=== PATIENT | male | born 1930 | race Caucasian/White ===

== ENCOUNTER 2016-06-12 19:49 | Inpatient (IN) | payer BC, OTHER ==
[~2016-06-12] VITALS: Ht 177.8 cm; Wt 87.0 kg
[~2016-06-12 19:49] MED LIST changes: -CARB25TA12 PO; -HYDR-5688 PO; -LCTX PO; -LPR25 PO; -RIVA1TAB4 PO
[2016-06-12] MEDS ORDERED: SODIUM CHLORIDE 0.9% 1000ML 1,000 ML IV ONE (20:12)
[2016-06-12] MEDS ORDERED: PIPERACILLIN/TAZOBACTAM 4.5 GM/100ML D5W IV STA (20:18)
[2016-06-12] MEDS ORDERED: ONDANSETRON INJ 2 MG/ML 2 ML VIAL IV STA (20:18)
[2016-06-12] MEDS ORDERED: PANTOprazole INJ 40 MG in SYRINGE 0 ML IV ONE (20:30)
--- NOTE | 2016-06-12 20:31 | EMERGENCY ROOM VISIT NOTE ---
History Report prepared by Alfred: Skinny Guallpa Under the Supervision of: Dr. Dominick Lynn D.O. First contact with patient: 20:11 Chief Complaint: WEAKNESS Stated Complaint: VERY WEAK,NEED FLUIDS Nursing Triage Summary: states he saw dr. samantha plasencia's pa today because of weakness due to vomiting. vomiting since son. was given rx for antivomiting, scan of stomach and blood work. "I need fluid, I am so dehydrated" History of Present Illness The patient is a 86 year old male who presents to the Emergency Room with complaints of persistent weakness beginning earlier today. He was seen by Dr. Plasencia's PA this morning for 2 days of vomiting. He had blood work and a CT at the office. The patient complains of feeling weak, and describes his emesis as dark brown. He denies having any fevers, colds, or chest pain. He states he still has his gallbladder, and indicates he was noted to have gallstones in the past. The patient reports having a heart murmur, and sinus problems for which he takes medication. 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 Source of History: patient Onset: earlier today Position: other (global) Quality: other (weakness) Timing: other (persistent) Associated Symptoms: + vomiting, No chest pain, No fevers Review of Systems See HPI for pertinent positives & negatives. A total of 10 systems reviewed and were otherwise negative. Past Medical & Surgical Medical Problems: (1) HYPERLIPIDEMIA NEC/NOS (2) HYPERTENSION NOS (3) HYPERTROPHY OF PROSTATE (BENIGN) (4) SBO (small bowel obstruction) Family History No pertinent family history stated. Social History Smoking Status: Former Smoker Drug Use: none Marital Status: Occupation Status: retired Current/Historical Medications Scheduled Aspirin (Aspirin Ec), 81 MG PO Q2D Atorvastatin (Lipitor), 10 MG PO HS Carbidopa/Levodopa (Sinemet 25MG/100MG), 1 TAB PO TID Cholecalciferol (Vitamin D3), 2,000 INTUNIT PO QAM Cyanocobalamin (Vitamin B-12 1000 Mcg), 1,000 MCG PO QAM Ipratropium [place] (Nasal) (Atrovent), 2 SPRAYS SOSA QAM Mupirocin 2% (Bactroban 2%), 1 APPLN EXT QAM Pramipexole Dihydrochloride (Pramipexole Dihydrochlori), 0.25 MG PO HS Valsartan (Diovan), 40 MG PO QAM Scheduled PRN [Gentamycin Sulfate], 3 OZ NA DAILY PRN for PRN Allergies Coded Allergies: No Known Allergies (Verified , 06/12/16) Physical Exam Vital Signs Date Time Temp Pulse Resp B/P Pulse Ox O2 Delivery O2 Flow Rate FiO2 06/12/16 23:16 72 18 117/76 98 06/12/16 23:02 101 18 117/76 93 Room Air 06/12/16 21:26 95 Room Air 06/12/16 21:01 107 06/12/16 21:00 129/70 06/12/16 21:00 129/70 06/12/16 20:58 134/88 06/12/16 20:58 134/88 06/12/16 20:01 36.4 121 16 89/57 94 Room Air Physical Exam GENERAL: Patient is awake alert, very anxious and uncomfortable appearing. EYES: The conjunctivae are clear. The pupils are round and reactive. EARS, NOSE, MOUTH AND THROAT: The nose is without any evidence of any deformity. Mucous membranes are dry, tongue is midline NECK: The neck is nontender and supple. RESPIRATORY: Normal respiratory effort is noted there is no evidence of wheezing rhonchi or rales CARDIOVASCULAR: Tachycardic rate to auscultation. Systolic murmur noted to auscultation. GASTROINTESTINAL: Moderately distended but soft. Right upper quadrant is tender to palpation without any guarding or rigidity. MUSCULOSKELETAL/EXTREMITIES: There is no evidence of gross deformity full range of motion is noted in the hips and shoulders SKIN: Trace pedal edema bilaterally. NEUROLOGIC: Patient is awake alert and oriented x3. Medical Decision & Procedures ER Provider Diagnostic Interpretation: Radiology results as stated below per my review and radiologist interpretation: CHEST ONE VIEW PORTABLE FINDINGS: Mild bibasilar atelectatic/infiltrative change. Lungs otherwise are clear. No evidence for cardiac enlargement. IMPRESSION: Small bibasilar parenchymal infiltrates/atelectatic change Electronically signed by: Jonas Yost M.D. 06/12/2016 8:39 PM Dictated Date/Time: 06/12/2016 8:38 PM ABDOMEN AND PELVIS CT WITHOUT CONTRAST FINDINGS: Mild bibasilar infiltrative change Liver appears uniform. Gallstones are present within the gallbladder. Pancreas is fatty replaced and otherwise appears unremarkable. Stomach is distended. This distention includes the proximal to distal small bowel. There is a consistent with that of distal small bowel obstruction. Etiology is unknown. Colon is decompressed. Appears be a changing caliber within the right lower quadrant although a true obstructing lesion is not easily appreciated. No evidence for pneumatosis. Atherosclerotic change and ectasia of the abdominal aorta. Bladder is midline. Mild chronic sigmoid diverticulosis. No evidence for acute diverticulitis. IMPRESSION: 1. Findings consistent with distal small bowel obstruction somewhat proximal to the terminal ileum. 2. Etiology is unclear although well-defined mass is not seen. 3. Bibasilar parenchymal infiltrative changes. 4. Gallstones. Electronically signed by: Jonas Yost M.D. 06/12/2016 9:50 PM Dictated Date/Time: 06/12/2016 9:40 PM Laboratory Results 06/12/16 21:19 Red Blood Count 4.86, Mean Corpuscular Volume 87.7, Mean Corpuscular Hemoglobin 30.5, Mean Corpuscular Hemoglobin Concent 34.7, Mean Platelet Volume 9.6, Neutrophils (%) (Auto) 73.5, Lymphocytes (%) (Auto) 8.9, Monocytes (%) (Auto) 17.0, Eosinophils (%) (Auto) 0.3, Basophils (%) (Auto) 0.1, Neutrophils # (Auto ) 8.77, Lymphocytes # (Auto) 1.06, Monocytes # (Auto) 2.02, Eosinophils # (Auto ) 0.03, Basophils # (Auto) 0.01 06/12/16 21:19 Test 06/12/16 20:30 06/12/16 21:19 Bedside Lactic Acid Venous 2.45 mmol/L (0.90-1.70) White Blood Count 11.91 K/uL (4.8-10.8) Red Blood Count 4.86 M/uL (4.7-6.1) Hemoglobin 14.8 g/dL (14.0-18.0) Hematocrit 42.6 % (42-52) Mean Corpuscular Volume 87.7 fL (80-100) Mean Corpuscular Hemoglobin 30.5 pg (25-34) Mean Corpuscular Hemoglobin Concent 34.7 g/dl (32-36) Platelet Count 255 K/uL (130-400) Mean Platelet Volume 9.6 fL (7.4-10.4) Neutrophils (%) (Auto) 73.5 % Lymphocytes (%) (Auto) 8.9 % Monocytes (%) (Auto) 17.0 % Eosinophils (%) (Auto) 0.3 % Basophils (%) (Auto) 0.1 % Neutrophils # (Auto) 8.77 K/uL (1.4-6.5) Lymphocytes # (Auto) 1.06 K/uL (1.2-3.4) Monocytes # (Auto) 2.02 K/uL (0.11-0.59) Eosinophils # (Auto) 0.03 K/uL (0-0.5) Basophils # (Auto) 0.01 K/uL (0-0.2) RDW Standard Deviation 48.6 fL (36.4-46.3) RDW Coefficient of Variation 15.1 % (11.5-14.5) Immature Granulocyte % (Auto) 0.2 % Immature Granulocyte # (Auto) 0.02 K/uL (0.00-0.02) Erythrocyte Sedimentation Rate 35 mm/hr (0-14) Prothrombin Time 13.2 SECONDS (9.0-12.0) Prothromb Time International Ratio 1.2 (0.9-1.1) Activated Partial Thromboplast Time 27.4 SECONDS (21.0-31.0) Partial Thromboplastin Ratio 1.1 Venous Blood pH 7.39 (7.36-7.41) Venous Blood Partial Pressure CO2 49 mmHg (38.0-50.0) Venous Blood Partial Pressure O2 23 mmHg Venous Blood HCO3 29 mmol/L Venous Blood Oxygen Saturation < 60.0 % Venous Blood Base Excess 3.1 mmol/L Anion Gap 11.0 mmol/L (3-11) Est Creatinine Clear Calc Drug Dose 20.5 ml/min Estimated GFR () 21.7 Estimated GFR (Non- 18.7 BUN/Creatinine Ratio 18.9 (10-20) Calcium Level 8.4 mg/dl (8.5-10.1) Phosphorus Level 5.9 mg/dl (2.5-4.9) Magnesium Level 2.3 mg/dl (1.8-2.4) Total Bilirubin 1.2 mg/dl (0.2-1) Aspartate Amino Transf (AST/SGOT) 18 U/L (15-37) Alanine Aminotransferase (ALT/SGPT) 22 U/L (12-78) Alkaline Phosphatase 77 U/L (45-117) Total Creatine Kinase 246 U/L (39-308) Creatine Kinase MB 3.0 ng/ml (0.5-3.6) Creatine Kinase MB Ratio 1.2 (0-3.0) Troponin I 0.060 ng/ml (0-0.045) C-Reactive Protein 5.67 mg/dl (0-0.29) Pro-B-Type Natriuretic Peptide 3927 pg/ml (0-1800) Total Protein 7.0 gm/dl (6.4-8.2) Albumin 3.6 gm/dl (3.4-5.0) Globulin 3.4 gm/dl (2.5-4.0) Albumin/Globulin Ratio 1.1 (0.9-2) Lipase 44 U/L (73-393) Laboratory results per my review. Medications Administered Medications (Trade) Dose Ordered Sig/Griffin Route Start Time Stop Time Status Last Admin Dose Admin Sodium Chloride 1,000 ml @ 999 mls/hr Q1H1M ONCE IV 06/12/16 20:12 06/12/16 21:12 DC 06/12/16 20:30 999 MLS/HR Pantoprazole Sodium/Syringe (Protonix Inj/ Syringe) 10 ml @ 5 mls/min NOW ONCE IV 06/12/16 20:30 06/12/16 20:31 DC 06/12/16 21:01 5 MLS/MIN Ondansetron HCl (Zofran Inj) 4 mg NOW STAT IV 06/12/16 20:18 06/12/16 20:20 DC 06/12/16 20:29 4 MG Piperacillin Sod/ Tazobactam Sod 4.5 gm 4.5 gm NOW STAT IV 06/12/16 20:18 06/12/16 20:20 DC 06/12/16 20:30 4.5 GM Sodium Chloride (Nss 1000ml) 1,000 ml @ 999 mls/hr Q1H1M STAT IV 06/12/16 21:42 06/12/16 22:42 DC 4/4/17 21:51 999 MLS/HR ECG Indication: weakness Rate (beats per minute): 110 Rhythm: sinus tachycardia Findings: no ectopy, other (diffuse ST segment abnormality) ED Course 2011: Ordered NSS 1,000 ml @ 999 mls/hr IV. 2015: The patient was evaluated in room B6. A complete history and physical examination were performed. 2018: Ordered Zosyn Iv 4.5 gm IV, and Zofran Inj 4 mg IV. 2029: Pantoprazole Sodium 40 mg/Syringe 10 ml @ 5 mls/min IV. 2141: Ordered NSS 1,000 ml @ 999 mls/hr IV. 2209: I discussed the patient's case with Dr. Pabon. The patient will be evaluated for further management. Medical Decision Differential diagnosis: Etiologies such as gastroenteritis, food borne illness, infections, appendicitis , diverticulitis, inflammatory bowel disease, obstruction, GI bleed, biliary pathology, as well as others were entertained. Consults Time Called: 2199 Consulting Physician: [place] [facility] [facility] [place]ed Call: [phone] I discussed the patient's case with Dr. Pabon. The patient will be evaluated for further management. Impression Primary Impression: SBO (small bowel obstruction) Additional Impressions: Nausea Vomiting Dehydration Acute kidney injury Scribe Attestation The scribe's documentation has been prepared under my direction and personally reviewed by me in its entirety. I confirm that the note above accurately reflects all work, treatment, procedures, and medical decision making performed by me. Departure Information Dispostion Being Evaluated By Hospitalist Referrals Dino Plasencia M.D. (PCP) Patient Instructions My [facility] Problem Qualifiers
--- NOTE | 2016-06-12 20:41 | DIAGNOSTIC IMAGING REPORT ---
CHEST ONE VIEW PORTABLE CLINICAL HISTORY: Sepsis dyspnea COMPARISON STUDY: 06/01/2014 FINDINGS: Mild bibasilar atelectatic/infiltrative change. Lungs otherwise are clear. No evidence for cardiac enlargement. IMPRESSION: Small bibasilar parenchymal infiltrates/atelectatic change Electronically signed by: Jonas Yost M.D. 06/12/2016 8:39 PM Dictated Date/Time: 06/12/2016 8:38 PM
[2016-06-12] MEDS ORDERED: CARB25TA12 PO (21:08)
[2016-06-12 21:35] LABS: BASO % 0.1 %; BASO ABS # 0.01 K/uL (0-0.2); COMPLETE YES; EOS % 0.3 %; HEMATOCRIT 42.6 % (42-52); IG% 0.2 %; LYMPH % 8.9 %; LYMPH ABS # 1.06 K/uL (1.2-3.4); MEAN CELL VOLUME 87.7 fL (80-100); MEAN CORPUSCULAR HEMOGLOBIN 30.5 pg (25-34); MEAN CORPUSCULAR HGB CONC 34.7 g/dl (32-36); MEAN PLATELET VOLUME 9.6 fL (7.4-10.4); NEUT % 73.5 %; PLATELET COUNT 255 K/uL (130-400); RED BLOOD COUNT 4.86 M/uL (4.7-6.1); WHITE BLOOD COUNT 11.91 K/uL (4.8-10.8)
[2016-06-12 21:36] LABS: VEN BLOOD GAS BASE EXCESS 3.1 mmol/L; VENOUS BLOOD GAS PCO2 49 mmHg (38.0-50.0); VENOUS BLOOD GAS PO2 23 mmHg
[2016-06-12] MEDS ORDERED: SODIUM CHLORIDE 0.9% 1000ML 1,000 ML IV STA (21:42)
[2016-06-12 21:44] LABS: VEN BLD GAS O2 SATURATION < 60.0 %
[2016-06-12 21:45] LABS: INR 1.2 (0.9-1.1); PARTIAL THROMBOPLASTIN RATIO 1.1; PROTHROMBIN TIME (PATIENT) 13.2 SECONDS (9.0-12.0)
--- NOTE | 2016-06-12 21:51 | DIAGNOSTIC IMAGING REPORT ---
ABDOMEN AND PELVIS CT WITHOUT CONTRAST CT DOSE: 732.98 mGy.cm HISTORY: Nausea. Vomiting. vomiting TECHNIQUE: Multiaxial CT images of the abdomen and pelvis were performed without contrast. COMPARISON STUDY: None. FINDINGS: Mild bibasilar infiltrative change Liver appears uniform. Gallstones are present within the gallbladder. Pancreas is fatty replaced and otherwise appears unremarkable. Stomach is distended. This distention includes the proximal to distal small bowel. There is a consistent with that of distal small bowel obstruction. Etiology is unknown. Colon is decompressed. Appears be a changing caliber within the right lower quadrant although a true obstructing lesion is not easily appreciated. No evidence for pneumatosis. Atherosclerotic change and ectasia of the abdominal aorta. Bladder is midline. Mild chronic sigmoid diverticulosis. No evidence for acute diverticulitis. IMPRESSION: 1. Findings consistent with distal small bowel obstruction somewhat proximal to the terminal ileum. 2. Etiology is unclear although well-defined mass is not seen. 3. Bibasilar parenchymal infiltrative changes. 4. Gallstones. Electronically signed by: Jonas Yost M.D. 06/12/2016 9:50 PM Dictated Date/Time: 06/12/2016 9:40 PM
[2016-06-12 21:59] LABS: BUN/CREATININE RATIO 18.9 (10-20); C-REACTIVE PROTEIN 5.67 mg/dl (0-0.29); CALCIUM 8.4 mg/dl (8.5-10.1); CREATININE 2.9 mg/dl (0.60-1.40); MAGNESIUM 2.3 mg/dl (1.8-2.4); POTASSIUM 4.2 mmol/L (3.5-5.1)
[2016-06-12 22:23] LABS: ALB/GLOB RATIO 1.1 (0.9-2); CKMB/CK RATIO 1.2 (0-3.0); PHOSPHORUS 5.9 mg/dl (2.5-4.9)
[2016-06-12] MEDS ORDERED: VANCOMYCIN INJ 1,000 MG in SODIUM CHLORIDE 0.9% 250ML 250 ML IV STA (22:25)
[2016-06-12] MEDS ORDERED: HydrALAZINE HCL 20 MG/ML VIAL IV. PRN (22:30)
[2016-06-12] MEDS ORDERED: MoRPHine SULFATE 2 MG/ML CARP IV PRN (22:30)
[2016-06-12] MEDS ORDERED: MoRPHine SULFATE 4 MG/ML 1 ML CARP\\VIAL IV PRN (22:30)
[2016-06-12] MEDS ORDERED: LEVALBUTEROL 1.25MG/0.5ML NEB INH PRN (23:00)
[2016-06-12] MEDS ORDERED: IPRATROPIUM BROMIDE NEB SOLN 0.02% 2.5 ML VIAL INH PRN (23:00)
[2016-06-12] MEDS ORDERED: VANCOMYCIN 1GM/270ML NSS ONE (23:30)
[2016-06-12] MEDS ORDERED: VANCOMYCIN CONSULT ACTIVE PRN (23:45)
[2016-06-12] MEDS ORDERED: PIPERACILL/TAZOBAC CONSULT ACTIVE PRN (23:45)
[2016-06-12 23:57] VITALS: BP 104/63; PULSE 109; TEMP 36.7; O2SAT 90
[2016-06-13] VITALS (13 sets, daily range): BP systolic 84–109; BP diastolic 52–66; PULSE 90–118; TEMP 36.5–37.7; O2SAT 81–95; Ht 177.8 cm; Wt 87.0 kg
[2016-06-13] MEDS: SODIUM CHLORIDE 0.9% 1000ML 1,000 ML IV SCH ×4 (00:28→22:39)
[2016-06-13] MEDS: ONDANSETRON INJ 2 MG/ML 2 ML VIAL IV PRN ×2 (01:16→01:59)
[2016-06-13] MEDS: PIPERACILL/TAZOBAC IV 3.375 GM in DEXTROSE 5% 100ML 100 ML IV SCH ×3 (01:57→18:39)
[2016-06-13] MEDS: LEVALBUTEROL 1.25MG/0.5ML NEB INH SCH ×4 (03:00→20:18)
[2016-06-13] MEDS: IPRATROPIUM BROMIDE NEB SOLN 0.02% 2.5 ML VIAL INH SCH ×4 (03:00→20:18)
[2016-06-13] MEDS ORDERED: LEVALBUTEROL/IPRATROPIUM NEB INH SCH (03:00)
--- NOTE | 2016-06-13 05:06 | History and Physical ---
History & Physical Date & Time of Service: Jun 13, 2016 at 04:54 Chief Complaint: SBO Primary Care Physician: Dino Lion M.D. History of Present Illness Source: patient The patient is an 86-year-old male who presents to the emergency department with persistent generalized weakness that began earlier in the day prior to arrival. He's had 2 days of dark brown emesis, feels generally weak, and has been noted to have gallstones in the past and does still have his gallbladder. He denies any bright red blood in his emesis or in stool. Past Medical/Surgical History Medical Problems: (1) HYPERLIPIDEMIA NEC/NOS Status: Chronic (2) HYPERTENSION NOS Status: Chronic (3) HYPERTROPHY OF PROSTATE (BENIGN) Status: Chronic Social History Smoking Status: Former Smoker Smokeless Tobacco Use: No Alcohol Use: none Drug Use: none Marital Status: Housing status: lives with family Occupational Status: retired Multi-Drug Resistant Organisms History of MDRO: No Allergies Coded Allergies: No Known Allergies (Verified , 06/12/16) Home Medications Scheduled Aspirin (Aspirin Ec), 81 MG PO Q2D Atorvastatin (Lipitor), 10 MG PO HS Carbidopa/Levodopa (Sinemet 25MG/100MG), 1 TAB PO TID Cholecalciferol (Vitamin D3), 2,000 INTUNIT PO QAM Cyanocobalamin (Vitamin B-12 1000 Mcg), 1,000 MCG PO QAM Ipratropium [place] (Nasal) (Atrovent), 2 SPRAYS SOSA QAM Mupirocin 2% (Bactroban 2%), 1 APPLN EXT QAM Pramipexole Dihydrochloride (Pramipexole Dihydrochlori), 0.25 MG PO HS Valsartan (Diovan), 40 MG PO QAM Scheduled PRN [Gentamycin Sulfate], 3 OZ NA DAILY PRN for PRN Review of Systems The patient denies chest pain, palpitations, shortness of breath, cough, lower extremity swelling, vision change, hearing change, sore throat, fevers, chills, sweats, weight change, pelvic pain, blood in urine or stool, dysuria, urinary frequency or urgency, lightheadedness, dizziness, headache, memory loss, rash, abnormal bruising or bleeding, imbalance, focal weakness, numbness or tingling in arms or legs, arthralgias or myalgias, back or neck pain, night sweats, or allergy symptoms. The review of systems is otherwise negative other than for that already noted above, and at least 10 systems have been reviewed. Physical Exam Vital Signs Date Time Temp Pulse Resp B/P Pulse Ox O2 Delivery O2 Flow Rate FiO2 06/13/16 00:00 36.7 109 20 104/63 90 Room Air 06/13/16 00:00 Room Air 06/12/16 23:57 36.7 109 20 104/63 90 Room Air 06/12/16 23:16 72 18 117/76 98 06/12/16 23:02 101 18 117/76 93 Room Air 06/12/16 21:26 95 Room Air 06/12/16 21:01 107 06/12/16 21:00 129/70 06/12/16 21:00 129/70 06/12/16 20:58 134/88 06/12/16 20:58 134/88 06/12/16 20:01 36.4 121 16 89/57 94 Room Air The patient is awake, well-developed and adequately nourished, alert and oriented 3, normocephalic and atraumatic, lying in bed and in no acute distress. HEENT--PERRL, EOMI, mucous membranes and oropharynx dry. Neck--supple, no JVD or bruits, thyroid normal, trachea midline, no adenopathy. Heart--normal S1 and S2, no extra beats, no murmurs, rubs or gallops. Lungs--clear bilaterally with good air movement, no respiratory distress, no accessory muscle use. Abdomen--decreased bowel sounds and soft, generalized mild tenderness, and nondistended. Extremities--no cyanosis, clubbing or edema. There are good distal pulses b/l. Dermatologic--normal skin turgor, normal color, warm and dry, no abnormal lymph nodes, no rash. Neurologic--cranial nerves II through XII grossly intact, motor and sensory examination normal. Rheumatologic--normal range of motion, nontender, muscles and joints. Psychiatric--normal affect. Diagnostics Laboratory Results Results Past 24 Hours Test 06/12/16 20:30 06/12/16 21:19 06/13/16 04:44 Range/Units Bedside Lactic Acid Venous 2.45 0.90-1.70 mmol/L White Blood Count 11.91 4.8-10.8 K/uL Red Blood Count 4.86 4.7-6.1 M/uL Hemoglobin 14.8 14.0-18.0 g/dL Hematocrit 42.6 42-52 % Mean Corpuscular Volume 87.7 80-100 fL Mean Corpuscular Hemoglobin 30.5 25-34 pg Mean Corpuscular Hemoglobin Concent 34.7 32-36 g/dl Platelet Count 255 130-400 K/uL Mean Platelet Volume 9.6 7.4-10.4 fL Neutrophils (%) (Auto) 73.5 % Lymphocytes (%) (Auto) 8.9 % Monocytes (%) (Auto) 17.0 % Eosinophils (%) (Auto) 0.3 % Basophils (%) (Auto) 0.1 % Neutrophils # (Auto) 8.77 1.4-6.5 K/uL Lymphocytes # (Auto) 1.06 1.2-3.4 K/uL Monocytes # (Auto) 2.02 0.11-0.59 K/uL Eosinophils # (Auto) 0.03 0-0.5 K/uL Basophils # (Auto) 0.01 0-0.2 K/uL RDW Standard Deviation 48.6 36.4-46.3 fL RDW Coefficient of Variation 15.1 11.5-14.5 % Immature Granulocyte % (Auto) 0.2 % Immature Granulocyte # (Auto) 0.02 0.00-0.02 K/uL Erythrocyte Sedimentation Rate 35 0-14 mm/hr Prothrombin Time 13.2 9.0-12.0 SECONDS Prothromb Time International Ratio 1.2 0.9-1.1 Activated Partial Thromboplast Time 27.4 21.0-31.0 SECONDS Partial Thromboplastin Ratio 1.1 Venous Blood pH 7.39 7.36-7.41 Venous Blood Partial Pressure CO2 49 38.0-50.0 mmHg Venous Blood Partial Pressure O2 23 mmHg Venous Blood HCO3 29 mmol/L Venous Blood Oxygen Saturation < 60.0 % Venous Blood Base Excess 3.1 mmol/L Sodium Level 135 136-145 mmol/L Potassium Level 4.2 3.5-5.1 mmol/L Chloride Level 95 98-107 mmol/L Carbon Dioxide Level 29 21-32 mmol/L Anion Gap 11.0 3-11 mmol/L Blood Urea Nitrogen 55 7-18 mg/dl Creatinine 2.90 0.60-1.40 mg/dl Est Creatinine Clear Calc Drug Dose 20.5 ml/min Estimated GFR () 21.7 Estimated GFR (Non- 18.7 BUN/Creatinine Ratio 18.9 10-20 Random Glucose 139 70-99 mg/dl Calcium Level 8.4 8.5-10.1 mg/dl Phosphorus Level 5.9 2.5-4.9 mg/dl Magnesium Level 2.3 1.8-2.4 mg/dl Total Bilirubin 1.2 0.2-1 mg/dl Aspartate Amino Transf (AST/SGOT) 18 15-37 U/L Alanine Aminotransferase (ALT/SGPT) 22 12-78 U/L Alkaline Phosphatase 77 45-117 U/L Total Creatine Kinase 246 39-308 U/L Creatine Kinase MB 3.0 0.5-3.6 ng/ml Creatine Kinase MB Ratio 1.2 0-3.0 Troponin I 0.060 0-0.045 ng/ml C-Reactive Protein 5.67 0-0.29 mg/dl Pro-B-Type Natriuretic Peptide 3927 0-1800 pg/ml Total Protein 7.0 6.4-8.2 gm/dl Albumin 3.6 3.4-5.0 gm/dl Globulin 3.4 2.5-4.0 gm/dl Albumin/Globulin Ratio 1.1 0.9-2 Lipase 44 73-393 U/L Microbiology Results 06/12/16 Blood Culture, Received Pending 06/12/16 Blood Culture, Received Pending Diagnostic Radiology Patient Name: LENY RODRIGUEZ Unit Number: [id number] Dictated: 06/12/162037 Transcribed: 06/12/162037 MS Printed Date/Time: [~ rep prt dt]/[~ rep prt tm] [~ rep ct labl] - [~ rep ct ivnm] [facility] [place] [place] [address] Dictated: 06/12/162037 Transcribed: 06/12/162037 MS Printed Date/Time: [~ rep prt dt]/[~ rep prt tm] [~ rep ct labl] - [~ rep ct ivnm] CHEST ONE VIEW PORTABLE CLINICAL HISTORY: Sepsis dyspnea COMPARISON STUDY: 06/01/2014 FINDINGS: Mild bibasilar atelectatic/infiltrative change. Lungs otherwise are clear. No evidence for cardiac enlargement. IMPRESSION: Small bibasilar parenchymal infiltrates/atelectatic change Electronically signed by: Jonas Yost M.D. 06/12/2016 8:39 PM Dictated Date/Time: 06/12/2016 8:38 PM The status of this report is Signed. Draft = Not yet reviewed or approved by Radiologist. Signed = Reviewed and approved by Radiologist. <AttendingPhy></AttendingPhy> <FamilyPhy>Dino Lion M.D.</FamilyPhy> < PrimaryPhy>Dino Lion M.D.</PrimaryPhy> <UnitNumber>[id number]</UnitNumber > <VisitNumber>[id number]</VisitNumber> <PatientName>LENY RODRIGUEZ</ PatientName> <DateOfBirth>1930</DateOfBirth> <Location>C.EDB</Location> < ServiceDate>06/12/16</ServiceDate> <MNE>ESINDI</MNE> <OrderingPhy>Dominick Lynn D.O.</OrderingPhy> <OrderingPhyMNE>f rep ord dr vásquez</OrderingPhyMNE> <DictatingPhyMNE>f rep dict dr vásquez</DictatingPhyMNE> <CCListMNE>f rep ct mne</ CCListMNE> <AdmittingPhyMNE>f pt admit dr vásquez</AdmittingPhyMNE> <AttendingPhyMNE >f pt attend dr vásquez</AttendingPhyMNE> <ConsultingPhyMNE>f pt consult dr vásquez</ConsultingPhyMNE> <FamilyPhyMNE>f pt fam dr vásquez</FamilyPhyMNE> <OtherPhyMNE>f pt other dr vásquez</OtherPhyMNE> < PrimaryPhyMNE>f pt prim care dr vásquez</PrimaryPhyMNE> <ReferringPhyMNE>f pt referring dr vásquez</ReferringPhyMNE> Patient Name: LENY RODRIGUEZ Unit Number: [id number] Dictated: 06/12/162139 Transcribed: 06/12/162139 MS Printed Date/Time: [~ rep prt dt]/[~ rep prt tm] [~ rep ct labl] - [~ rep ct ivnm] [facility] [place] [place] [address] Dictated: 06/12/162139 Transcribed: 06/12/162139 MS Printed Date/Time: [~ rep prt dt]/[~ rep prt tm] [~ rep ct labl] - [~ rep ct ivnm] ABDOMEN AND PELVIS CT WITHOUT CONTRAST CT DOSE: 732.98 mGy.cm HISTORY: Nausea. Vomiting. vomiting TECHNIQUE: Multiaxial CT images of the abdomen and pelvis were performed without contrast. COMPARISON STUDY: None. FINDINGS: Mild bibasilar infiltrative change Liver appears uniform. Gallstones are present within the gallbladder. Pancreas is fatty replaced and otherwise appears unremarkable. Stomach is distended. This distention includes the proximal to distal small bowel. There is a consistent with that of distal small bowel obstruction. Etiology is unknown. Colon is decompressed. Appears be a changing caliber within the right lower quadrant although a true obstructing lesion is not easily appreciated. No evidence for pneumatosis. Atherosclerotic change and ectasia of the abdominal aorta. Bladder is midline. Mild chronic sigmoid diverticulosis. No evidence for acute diverticulitis. IMPRESSION: 1. Findings consistent with distal small bowel obstruction somewhat proximal to the terminal ileum. 2. Etiology is unclear although well-defined mass is not seen. 3. Bibasilar parenchymal infiltrative changes. 4. Gallstones. Electronically signed by: Jonas Yost M.D. 06/12/2016 9:50 PM Dictated Date/Time: 06/12/2016 9:40 PM The status of this report is Signed. Draft = Not yet reviewed or approved by Radiologist. Signed = Reviewed and approved by Radiologist. <AttendingPhy></AttendingPhy> <FamilyPhy>Dino Lion M.D.</FamilyPhy> < PrimaryPhy>Dino Lion M.D.</PrimaryPhy> <UnitNumber>[id number]</UnitNumber > <VisitNumber>[id number]</VisitNumber> <PatientName>LENY RODRIGUEZ</ PatientName> <DateOfBirth>1930</DateOfBirth> <Location>C.EDB</Location> < ServiceDate>06/12/16</ServiceDate> <MNE>ESINDI</MNE> <OrderingPhy>Dominick Lynn D.O.</OrderingPhy> <OrderingPhyMNE>f rep ord dr vásquez</OrderingPhyMNE> <DictatingPhyMNE>f rep dict dr vásquez</DictatingPhyMNE> <CCListMNE>f rep ct thalia</ CCListMNE> <AdmittingPhyMNE>f pt admit dr vásquez</AdmittingPhyMNE> <AttendingPhyMNE >f pt attend dr vásquez</AttendingPhyMNE> <ConsultingPhyMNE>f pt consult dr vásquez</ConsultingPhyMNE> <FamilyPhyMNE>f pt fam dr vásquez</FamilyPhyMNE> <OtherPhyMNE>f pt other dr vásquze</OtherPhyMNE> < PrimaryPhyMNE>f pt prim care dr vásquez</PrimaryPhyMNE> <ReferringPhyMNE>f pt referring dr vásquez</ReferringPhyMNE> Impression Assessment and Plan Distal small bowel obstruction--the patient will be admitted to the medical surgical floor. He'll be nothing by mouth. Place on normal saline at 100 ML's per hour. Vancomycin IV per renal dosing, Zosyn 3.375 mg IV every 8 hours, Zofran 4 mg IV every 6 hours when necessary, and Protonix 40 mg IV daily. We' ll follow serial examination, imaging studies and labs. The patient was initially reluctant to have an NG tube placed, however, with persistent nausea and vomiting upon arrival to the medical floor, an NG tube to low intermittent suction was placed. Pneumonia of both lower lobes--possibly secondary to aspiration--antibiotics as noted above, and Xopenex with Atrovent nebulizer use every 6 hours awake and every 2 hours when necessary. Hypertension/Renal insufficiency--creatinine of 2.90 on entry labs. We placed on normal saline as noted above, and we'll have serial BMP and magnesium levels performed. Hold Diovan 40 mg by mouth every morning and enteric-coated aspirin 81 mg by mouth every 2 days. Hypercholesterolemia--hold atorvastatin 10 mg by mouth at bedtime. Restless leg syndrome--hold pramipexole 0.25 mg by mouth at bedtime. Parkinsonism--hold carbidopa/levodopa 25/100, 1 tablet by mouth 3 times a day. Vitamin B12 deficiency--hold supplement 1000 g by mouth every morning. Level of Care Med/Surg Advanced Directives Existing Advance Directive: No Existing Living Will: Yes Existing Power of Agricultural Produce Washer: Yes Resuscitation Status FULL RESUSCITATION VTE Prophylaxis VTE Risk Assessment Done? Y/N: Yes Risk Level: Moderate Given or contraindicated: SCD's
[2016-06-13] MEDS ORDERED: SODIUM CHLORIDE 0.9% 500ML 500 ML IV SCH ×2 (08:00→23:00)
[2016-06-13 08:08] LABS: HEMATOCRIT 38.9 % (42-52); MEAN CELL VOLUME 86.6 fL (80-100); MEAN CORPUSCULAR HEMOGLOBIN 30.7 pg (25-34); MEAN CORPUSCULAR HGB CONC 35.5 g/dl (32-36); MEAN PLATELET VOLUME 9.5 fL (7.4-10.4); PLATELET COUNT 206 K/uL (130-400); RED BLOOD COUNT 4.49 M/uL (4.7-6.1); WHITE BLOOD COUNT 9.33 K/uL (4.8-10.8)
[2016-06-13 08:26] LABS: COMPLETE YES; LYMPH ABS # 0.65 K/uL (1.2-3.4); NEUTROPHILS % 88.7 %
[2016-06-13 08:56] LABS: BUN/CREATININE RATIO 18.3 (10-20); CREATININE 3.3 mg/dl (0.60-1.40); POTASSIUM 3.4 mmol/L (3.5-5.1)
--- NOTE | 2016-06-13 09:57 | Progress Note ---
Subjective Date of Service: Jun 13, 2016. Subjective Pt evaluation today including: conversation w/ patient, conversation w/ family , physical exam, chart review, lab review, review of studies, conversation w/ remediation bioanalytics consultant, review of inpatient medication list somewhat confused - dtr present and corroborates that he's not baseline mentation. notes that he's feeling better now than he was at admission - currently no abdominal pain no nausea/vomiting - NGT not bothering him much. nursing relatses that NGT putting out a lot of drainage. no f/c/s except for one chill at ER admission that seems to have just went away with warm blankets. doesn't feel sob, no cp no pressure. no chest discomfort at all no prior abdominal surgeries. last colo ~20yrs ago. recalls it being normal outpatient charts reviewed as well daughter just came up from [place] - had surgery last week as well they note just got home from inpt stay w myeloma - and lots of people were bringing them lots of food - he wonders if he got food poisoning. again no diarrhea, no f/c/s, and no other sick contacts Problem List Medical Problems: (1) Acute kidney injury Status: Acute (2) Dehydration Status: Acute (3) Nausea Status: Acute (4) Vomiting Status: Acute Review of Systems Constitutional: + chills (only once at admission to ER just notes being cold), No fever, No sweats Respiratory: No shortness of breath Cardiac: No chest pain Abdomen: No nausea, No pain, No vomiting (none now - did have ~48hrs (?maybe 72hrs) profuse vomiting prior to admission. doesn't remember abdominal distention, but also doesn't "not" remember distention. no diarrhea - relates yesterday or the day before he had "the largest BM of my life" solid. ) Neurologic: + problem reported (seems mildly confused - daughter corroborates) ros otherwise negative except for as above Objective Vital Signs Date Time Temp Pulse Resp B/P Pulse Ox O2 Delivery O2 Flow Rate FiO2 06/13/16 08:19 92 Nasal Cannula 4.0 06/13/16 08:12 92 Nasal Cannula 4.0 06/13/16 08:00 Nasal Cannula 4.0 06/13/16 07:45 37.0 116 16 95/66 93 Nasal Cannula 4.0 06/13/16 07:44 37.7 96 16 84/52 81 Room Air 06/13/16 07:35 93 12 93 Nasal Cannula 2.0 06/13/16 00:00 36.7 109 20 104/63 90 Room Air 06/13/16 00:00 Room Air 06/12/16 23:57 36.7 109 20 104/63 90 Room Air 06/12/16 23:16 72 18 117/76 98 06/12/16 23:02 101 18 117/76 93 Room Air 06/12/16 21:26 95 Room Air 06/12/16 21:01 107 06/12/16 21:00 129/70 06/12/16 21:00 129/70 06/12/16 20:58 134/88 06/12/16 20:58 134/88 06/12/16 20:01 36.4 121 16 89/57 94 Room Air Physical Exam General Appearance: no apparent distress (fatigued but no distress) Eyes: EOMI ENT: hearing grossly normal, + pertinent finding (NGT without breakdown) Neck: trachea midline Respiratory/Chest: no respiratory distress, no accessory muscle use, + decreased breath sounds (bibasilar but no r/r/w no distress no accessory muscles ) Cardiovascular: regular rate, rhythm Abdomen: non tender, soft, + pertinent finding (hypoactive BS, nondistended, no masses or organomegaly) Extremities: normal range of motion Neurologic/Psychiatric: hands parter II-XII nml as tested, alert, + pertinent finding ( overall oriented but seems easily confused and occassionally mentions odd ) Skin: normal color Laboratory Results Last 24 Hours Test 06/12/16 20:30 06/12/16 21:19 06/13/16 07:45 Bedside Lactic Acid Venous 2.45 mmol/L White Blood Count 11.91 K/uL 9.33 K/uL Red Blood Count 4.86 M/uL 4.49 M/uL Hemoglobin 14.8 g/dL 13.8 g/dL Hematocrit 42.6 % 38.9 % Mean Corpuscular Volume 87.7 fL 86.6 fL Mean Corpuscular Hemoglobin 30.5 pg 30.7 pg Mean Corpuscular Hemoglobin Concent 34.7 g/dl 35.5 g/dl Platelet Count 255 K/uL 206 K/uL Mean Platelet Volume 9.6 fL 9.5 fL Neutrophils (%) (Auto) 73.5 % Lymphocytes (%) (Auto) 8.9 % Monocytes (%) (Auto) 17.0 % Eosinophils (%) (Auto) 0.3 % Basophils (%) (Auto) 0.1 % Neutrophils # (Auto) 8.77 K/uL Lymphocytes # (Auto) 1.06 K/uL Monocytes # (Auto) 2.02 K/uL Eosinophils # (Auto) 0.03 K/uL Basophils # (Auto) 0.01 K/uL RDW Standard Deviation 48.6 fL 48.0 fL RDW Coefficient of Variation 15.1 % 15.0 % Immature Granulocyte % (Auto) 0.2 % Immature Granulocyte # (Auto) 0.02 K/uL Erythrocyte Sedimentation Rate 35 mm/hr Prothrombin Time 13.2 SECONDS Prothromb Time International Ratio 1.2 Activated Partial Thromboplast Time 27.4 SECONDS Partial Thromboplastin Ratio 1.1 Venous Blood pH 7.39 Venous Blood Partial Pressure CO2 49 mmHg Venous Blood Partial Pressure O2 23 mmHg Venous Blood HCO3 29 mmol/L Venous Blood Oxygen Saturation < 60.0 % Venous Blood Base Excess 3.1 mmol/L Sodium Level 135 mmol/L 136 mmol/L Potassium Level 4.2 mmol/L 3.4 mmol/L Chloride Level 95 mmol/L 98 mmol/L Carbon Dioxide Level 29 mmol/L 24 mmol/L Anion Gap 11.0 mmol/L 14.0 mmol/L Blood Urea Nitrogen 55 mg/dl 60 mg/dl Creatinine 2.90 mg/dl 3.30 mg/dl Est Creatinine Clear Calc Drug Dose 20.5 ml/min 18.1 ml/min Estimated GFR () 21.7 18.6 Estimated GFR (Non- 18.7 16.0 BUN/Creatinine Ratio 18.9 18.3 Random Glucose 139 mg/dl 93 mg/dl Calcium Level 8.4 mg/dl 8.0 mg/dl Phosphorus Level 5.9 mg/dl Magnesium Level 2.3 mg/dl 2.0 mg/dl Total Bilirubin 1.2 mg/dl Aspartate Amino Transf (AST/SGOT) 18 U/L Alanine Aminotransferase (ALT/SGPT) 22 U/L Alkaline Phosphatase 77 U/L Total Creatine Kinase 246 U/L Creatine Kinase MB 3.0 ng/ml Creatine Kinase MB Ratio 1.2 Troponin I 0.060 ng/ml C-Reactive Protein 5.67 mg/dl Pro-B-Type Natriuretic Peptide 3927 pg/ml Total Protein 7.0 gm/dl Albumin 3.6 gm/dl Globulin 3.4 gm/dl Albumin/Globulin Ratio 1.1 Lipase 44 U/L Neutrophils % (Manual) 88.7 % Lymphocytes % (Manual) 7.0 % Monocytes % (Manual) 4.3 % Neutrophils # (Manual) 8.28 K/uL Total Absolute Neutrophils 8.28 K/uL Lymphocytes # (Manual) 0.65 K/uL Total Absolute Lymphocytes 0.65 K/uL Monocytes # (Manual) 0.40 K/uL Red Blood Cell Morphology Unremarkable Assessment and Plan SBO -concerning given no prior abdominal surgeries -consult surgery to assist in dx and management -NGT, pain and nausea control dehydration w ARF -appearing due to volume loss -IVF, since creatinine avril despite fluids - check FeNa - ?ATN. bladder scan to r/o urinary retention (and then low threshold to check renal US if bladder scan normal but creatinine continues to rise/fails to improve) aspiration pneumonia w hypoxia -due to vomiting -continue monicanmarlys elevated troponin -nothing worrisome for STEMI or NSTEMI - likely demand ischemia from acute illness and/or poor clearance from ARF - follow DVT proph -heparin SQ Hypertension -follow Hypercholesterolemia--hold atorvastatin 10 mg by mouth at bedtime. Restless leg syndrome--hold pramipexole 0.25 mg by mouth at bedtime. Parkinsonism--hold carbidopa/levodopa 25/100, 1 tablet by mouth 3 times a day. follow closely for any worsening in sx Vitamin B12 deficiency--hold supplement 1000 g by mouth every morning.
--- NOTE | 2016-06-13 10:52 | Pre-Operative Consultation ---
History General Date of Service: Jun 13, 2016. Chief Complaint: Weakness, nausea, vomiting. HPI HPI: The patient is a 86 year old male being seen for pre-operative evaluation. The patient is a 86 year old male who presents to the Emergency Room with complaints of persistent weakness beginning earlier yesterday. He was seen by Dr. Lion's PA yesterday for 2 days of vomiting. He had blood work and a CT at the office. The patient complains of feeling weak, and describes his emesis as dark brown. He denies having any fevers, colds, or chest pain. He states he still has his gallbladder, and indicates he was noted to have gallstones in the past. The patient reports having a heart murmur, and sinus problems for which he takes medication. 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 Patient 's daughter arrived yesterday from [place]- was not in the room during history and physical. Presently, patient states that he is improving since NG tube insertion. Historian: patient Problem List Medical Problems: (1) Acute kidney injury Status: Acute (2) Dehydration Status: Acute (3) Nausea Status: Acute (4) Vomiting Status: Acute Medical & Surgical History Past Medical History: (1) HYPERLIPIDEMIA NEC/NOS (2) HYPERTENSION NOS (3) HYPERTROPHY OF PROSTATE (BENIGN) (4) SBO (small bowel obstruction) Past Surgical History: Per patient- sinus surgery, denies previous abdominal surgery. Family History Family History: no pertinent family hx Social History Hx Tobacco Use In Past Year?: No Smoking Status: Former Smoker Drug Use: none Marital status: Housing status: lives with family Occupation status: retired Allergies Allergies: Coded Allergies: No Known Allergies (Verified , 06/12/16) Medications Current Inpatient Medications Current Inpatient Medications Medications (Trade) Dose Ordered Sig/Griffin Route Start Time Stop Time Status Last Admin Dose Admin Ondansetron HCl 4 mg 4 mg Q6H PRN IV 06/12/16 22:30 07/12/16 22:29 06/13/16 01:59 4 MG Acetaminophen (Ofirmev Iv) 100 ml @ 400 mls/hr Q8H PRN IV 06/12/16 22:30 07/12/16 22:29 Hydralazine HCl (HydrALAZINE INJ) 10 mg Q4H PRN IV. 4/4/17 22:30 07/12/16 22:29 Morphine Sulfate (MoRPHine SULFATE INJ) 2 mg Q2H PRN IV 06/12/16 22:30 06/26/16 22:29 Morphine Sulfate 4 mg 4 mg Q2H PRN IV 06/12/16 22:30 06/26/16 22:29 Piperacillin Sod/ Tazobactam Sod 3.375 gm/Dextrose 115 ml @ 28.75 mls/ hr Q8H IV 06/13/16 02:00 06/20/16 01:59 06/13/16 01:57 28.75 MLS/HR Sodium Chloride (Nss 1000ml) 1,000 ml @ 125 mls/hr Q8H IV 06/12/16 22:30 07/12/16 22:29 06/13/16 00:28 125 MLS/HR Ipratropium [place] (Atrovent 0.02% 0.5MG/2.5ML Neb) 0.5 mg Q6R INH 06/13/16 03:00 07/13/16 02:59 06/13/16 07:35 0.5 MG Levalbuterol (Xopenex 1.25MG/ 0.5ML Neb) 1.25 mg Q6R INH 06/13/16 03:00 07/13/16 02:59 06/13/16 07:35 1.25 MG Ipratropium [place] (Atrovent 0.02% 0.5MG/2.5ML Neb) 0.5 mg Q2H PRN INH 06/12/16 23:00 07/12/16 22:59 Levalbuterol (Xopenex 1.25MG/ 0.5ML Neb) 1.25 mg Q2H PRN INH 06/12/16 23:00 07/12/16 22:59 Piperacillin Sod/ Tazobactam Sod (Consult) 1 ea UD PRN N/A 06/12/16 23:45 07/12/16 23:44 Heparin Sodium (Porcine) (Heparin Sq 5000 Unit/0.5ml) 5,000 unit Q12 SQ 06/13/16 21:00 07/13/16 20:59 Review of Systems Review of Systems Constitutional: denies chills, denies fever Gastrointestinal: see HPI Physical Exam Physical Exam General Appearance: No distress Respiratory: No accessory muscle use, No respiratory distress Abdomen: No distension, No guarding (Soft on exam), No tenderness Diagnostics Labs Labs Results Past 24 Hours Test 06/12/16 20:30 06/12/16 21:19 06/13/16 07:45 06/13/16 09:56 Range/Units Bedside Lactic Acid Venous 2.45 0.90-1.70 mmol/L White Blood Count 11.91 9.33 4.8-10.8 K/uL Red Blood Count 4.86 4.49 4.7-6.1 M/uL Hemoglobin 14.8 13.8 14.0-18.0 g/dL Hematocrit 42.6 38.9 42-52 % Mean Corpuscular Volume 87.7 86.6 80-100 fL Mean Corpuscular Hemoglobin 30.5 30.7 25-34 pg Mean Corpuscular Hemoglobin Concent 34.7 35.5 32-36 g/dl Platelet Count 255 206 130-400 K/uL Mean Platelet Volume 9.6 9.5 7.4-10.4 fL Neutrophils (%) (Auto) 73.5 % Lymphocytes (%) (Auto) 8.9 % Monocytes (%) (Auto) 17.0 % Eosinophils (%) (Auto) 0.3 % Basophils (%) (Auto) 0.1 % Neutrophils # (Auto) 8.77 1.4-6.5 K/uL Lymphocytes # (Auto) 1.06 1.2-3.4 K/uL Monocytes # (Auto) 2.02 0.11-0.59 K/uL Eosinophils # (Auto) 0.03 0-0.5 K/uL Basophils # (Auto) 0.01 0-0.2 K/uL RDW Standard Deviation 48.6 48.0 36.4-46.3 fL RDW Coefficient of Variation 15.1 15.0 11.5-14.5 % Immature Granulocyte % (Auto) 0.2 % Immature Granulocyte # (Auto) 0.02 0.00-0.02 K/uL Erythrocyte Sedimentation Rate 35 0-14 mm/hr Prothrombin Time 13.2 9.0-12.0 SECONDS Prothromb Time International Ratio 1.2 0.9-1.1 Activated Partial Thromboplast Time 27.4 21.0-31.0 SECONDS Partial Thromboplastin Ratio 1.1 Venous Blood pH 7.39 7.36-7.41 Venous Blood Partial Pressure CO2 49 38.0-50.0 mmHg Venous Blood Partial Pressure O2 23 mmHg Venous Blood HCO3 29 mmol/L Venous Blood Oxygen Saturation < 60.0 % Venous Blood Base Excess 3.1 mmol/L Sodium Level 135 136 136-145 mmol/L Potassium Level 4.2 3.4 3.5-5.1 mmol/L Chloride Level 95 98 98-107 mmol/L Carbon Dioxide Level 29 24 21-32 mmol/L Anion Gap 11.0 14.0 3-11 mmol/L Blood Urea Nitrogen 55 60 7-18 mg/dl Creatinine 2.90 3.30 0.60-1.40 mg/dl Est Creatinine Clear Calc Drug Dose 20.5 18.1 ml/min Estimated GFR () 21.7 18.6 Estimated GFR (Non- 18.7 16.0 BUN/Creatinine Ratio 18.9 18.3 10-20 Random Glucose 139 93 70-99 mg/dl Calcium Level 8.4 8.0 8.5-10.1 mg/dl Phosphorus Level 5.9 2.5-4.9 mg/dl Magnesium Level 2.3 2.0 1.8-2.4 mg/dl Total Bilirubin 1.2 0.2-1 mg/dl Aspartate Amino Transf (AST/SGOT) 18 15-37 U/L Alanine Aminotransferase (ALT/SGPT) 22 12-78 U/L Alkaline Phosphatase 77 45-117 U/L Total Creatine Kinase 246 39-308 U/L Creatine Kinase MB 3.0 0.5-3.6 ng/ml Creatine Kinase MB Ratio 1.2 0-3.0 Troponin I 0.060 0-0.045 ng/ml C-Reactive Protein 5.67 0-0.29 mg/dl Pro-B-Type Natriuretic Peptide 3927 0-1800 pg/ml Total Protein 7.0 6.4-8.2 gm/dl Albumin 3.6 3.4-5.0 gm/dl Globulin 3.4 2.5-4.0 gm/dl Albumin/Globulin Ratio 1.1 0.9-2 Lipase 44 73-393 U/L Neutrophils % (Manual) 88.7 % Lymphocytes % (Manual) 7.0 % Monocytes % (Manual) 4.3 % Neutrophils # (Manual) 8.28 1.4-6.5 K/uL Total Absolute Neutrophils 8.28 1.4-6.5 K/uL Lymphocytes # (Manual) 0.65 1.2-3.4 K/uL Total Absolute Lymphocytes 0.65 1.2-3.4 K/uL Monocytes # (Manual) 0.40 0.11-0.59 K/uL Red Blood Cell Morphology Unremarkable Microbiology Results 06/12/16 Blood Culture, Received Pending 06/12/16 Blood Culture, Received Pending Lab Interpretation Lab Interpretation: labs were reviewed Diagnostic Radiology Diagnostic Radiology ABDOMEN AND PELVIS CT WITHOUT CONTRAST CT DOSE: 732.98 mGy.cm HISTORY: Nausea. Vomiting. vomiting TECHNIQUE: Multiaxial CT images of the abdomen and pelvis were performed without contrast. COMPARISON STUDY: None. FINDINGS: Mild bibasilar infiltrative change Liver appears uniform. Gallstones are present within the gallbladder. Pancreas is fatty replaced and otherwise appears unremarkable. Stomach is distended. This distention includes the proximal to distal small bowel. There is a consistent with that of distal small bowel obstruction. Etiology is unknown. Colon is decompressed. Appears be a changing caliber within the right lower quadrant although a true obstructing lesion is not easily appreciated. No evidence for pneumatosis. Atherosclerotic change and ectasia of the abdominal aorta. Bladder is midline. Mild chronic sigmoid diverticulosis. No evidence for acute diverticulitis. IMPRESSION: 1. Findings consistent with distal small bowel obstruction somewhat proximal to the terminal ileum. 2. Etiology is unclear although well-defined mass is not seen. 3. Bibasilar parenchymal infiltrative changes. 4. Gallstones. Electronically signed by: Jonas Yost M.D. 06/12/2016 9:50 PM Impression Assessment and Plan Assessment and Plan Small Bowel Obstruction, no previous abdominal surgeries NG tube in place, will continue to watch closely. No acute abdominal findings. Most likely needs more fluid resuscitation. Bladder scan 127cc.
[2016-06-13] MEDS ORDERED: PANTOprazole INJ 40 MG in SYRINGE 0 ML IV SCH (11:00)
[2016-06-13] MEDS ORDERED: NURSING VERBAL MED ORDER ONE ×2 (11:45→19:45)
[2016-06-13] MEDS ORDERED: SODIUM CHLORIDE 0.9% 1000ML 1,000 ML IV ONE (12:00)
--- NOTE | 2016-06-13 13:29 | SURGERY PROGRESS NOTE ---
DATE: 06/13/2016 DATE: 06/13/2016. Harsh is resting comfortably. He is having no abdominal discomfort. He states that he just feels very dry. He has been sick since Saturday with vomiting and since the NG tube has just been placed here he has had over 1800 mL output. Appears to be just small bowel content. It is comparable to his CAT scan findings. His abdomen is completely benign. He has no femoral or inguinal hernias. Laboratory studies showed his last white count is 9.33. He does have a left shift, hemoglobin 13.8. His chemistries showed a BUN of 60, creatinine 3.30. Approximately 5 months ago he had a normal BUN and creatinine. CAT scan was reviewed. I suspect the patient will need to go to surgery. He has had no previous abdominal surgery. This is a high grade obstruction near the terminal ileum. He has had no acute findings at this time to navarro him to surgery. I would like for him to be resuscitated if possible before proceeding with that. His last blood pressure is 85/57, pulse rate 118 and temperature of 36.9. When he first came in his temperature was 36.4, his pulse rate was 121, blood pressure 89/57. I discussed the case with Dr. Arthur of our plans. I also recommended the possibility place a Parker catheter to monitor his fluid status.
--- NOTE | 2016-06-13 14:59 | DIAGNOSTIC IMAGING REPORT ---
ABDOMEN 2 VIEWS HISTORY: Small bowel obstruction. Follow-up. COMPARISON: Abdomen and pelvis CT 06/12/2016. FINDINGS: Multiple distended loops of small bowel within the upper abdomen. These measure up to 4.7 cm in diameter. This is consistent with the small bowel obstruction seen on the recent abdomen and pelvis CT. The distal end of the nasogastric tube is visualized and likely resides within the stomach. No definite pneumoperitoneum or pneumatosis on this portable. IMPRESSION: 1. Small bowel obstruction which is similar to the prior abdomen and pelvis CT. 2. Nasogastric tube terminates in the proximal stomach. This could be advanced by a few centimeters. Electronically signed by: Jared Valero M.D. 06/13/2016 2:58 PM Dictated Date/Time: 06/13/2016 2:54 PM
--- NOTE | 2016-06-13 16:09 | Progress Note ---
Progress Note Date of Service Jun 13, 2016. Progress Note 86 year old M presenting for Ex lap and possible bowel resection. He has been undergoing fluid resuscitation and his vital signs are improving, although he is still fairly tachycardic. In addition, his creatinine continues to climb with BONI and his troponins have elevated to 1.5, with moderately elevated BNP. Ideally, the patient would be hydrated sufficiently as to no longer be tachycardic, especially if his elevated rate is causing active myocardial ischemia. We are awaiting a scheduled echocardiogram to look for RWMA at this point and his planned operative management will be dependent on his fluid and cardiac status in the morning. I suspect that the patient is actually fairly anemic when adequately hydrated and so I have ordered a type and screen to be done before the OR.
[2016-06-13] MEDS ORDERED: COUGH DROP (SUGAR FREE) LOZ 24 LOZ/1 BOX PO PRN (16:45)
--- NOTE | 2016-06-13 16:48 | SURGERY PROGRESS NOTE ---
DATE: 06/13/2016 DATE: 06/13/2016. TIME: 4:35 in the evening. Harsh is doing much better than this morning, appears to be better hydrated and after talking with Dr. Arthur and medical service we agreed to increase his fluids, although gingerly due to his cardiac status. Pito his daughter Sandy is at bedside. The situation was discussed with her including her plan to proceed with surgery tomorrow unless miraculously gets better overnight. His last vitals showed a temperature of 36.8, pulse 114, respirations 18, blood pressure is 109/66 which is much better than had been. He does have a Parker catheter in and he is draining clear urine. The amount has not been recorded. It is also reported that he had 1 small bowel movement. His abdomen is pretty much unchanged. He is scheduled for surgery at 8:15 in the morning. We will reevaluate him in the morning and see how he does.
[2016-06-13] MEDS: SODIUM CHLORIDE 0.9% 500ML 500 ML IV SCH ×2 (17:03→18:39)
[2016-06-13 18:01] LABS: BUN/CREATININE RATIO 19.2 (10-20); CALCIUM 7.5 mg/dl (8.5-10.1); CREATININE 3.3 mg/dl (0.60-1.40); POTASSIUM 3.8 mmol/L (3.5-5.1)
[2016-06-13] MEDS: HEPARIN SOD 5000 UNIT/0.5 ML CARP SQ SCH (21:02)
[2016-06-14] VITALS (33 sets, daily range): BP systolic 77–124; BP diastolic 44–68; PULSE 72–135; TEMP 36.6–36.9; O2SAT 93–95
[2016-06-14] MEDS: PIPERACILL/TAZOBAC IV 3.375 GM in DEXTROSE 5% 100ML 100 ML IV SCH ×3 (02:00→18:37)
[2016-06-14] MEDS: LEVALBUTEROL 1.25MG/0.5ML NEB INH SCH ×2 (02:15→09:00)
[2016-06-14] MEDS: IPRATROPIUM BROMIDE NEB SOLN 0.02% 2.5 ML VIAL INH SCH ×2 (02:15→09:00)
[2016-06-14] MEDS ORDERED: PERFLUTREN LIPID MICROSPHERE (DEFINITY) IV ONE (07:22)
[2016-06-14] MEDS: SODIUM CHLORIDE 0.9% 1000ML 1,000 ML IV SCH ×3 (07:22→22:38)
[2016-06-14 07:47] LABS: BASO % 0.1 %; BASO ABS # 0.01 K/uL (0-0.2); COMPLETE YES; EOS % 0.4 %; HEMATOCRIT 36.2 % (42-52); IG% 0.3 %; LYMPH % 5.7 %; LYMPH ABS # 0.82 K/uL (1.2-3.4); MEAN CELL VOLUME 87.2 fL (80-100); MEAN CORPUSCULAR HEMOGLOBIN 30.8 pg (25-34); MEAN CORPUSCULAR HGB CONC 35.4 g/dl (32-36); MEAN PLATELET VOLUME 9.5 fL (7.4-10.4); MONO % 8.2 %; NEUT % 85.3 %; PLATELET COUNT 184 K/uL (130-400); RED BLOOD COUNT 4.15 M/uL (4.7-6.1); WHITE BLOOD COUNT 14.45 K/uL (4.8-10.8)
[2016-06-14] MEDS ORDERED: METOPROLOL TARTRATE 1 MG/ML VIAL IV ONE ×2 (08:00→12:06)
--- NOTE | 2016-06-14 08:01 | Clinical Documentation Query ---
CLINICAL DOCUMENTATION QUERY 86 year old male who presents to the Emergency Room with complaints of persistent weakness. He was found hypotensive, dehydrated, with SBO and aspiration pneumonia. In your clinical opinion is this patient being managed for: ( ) ARF with ATN in setting of dehydration associated hypotension. (x ) Other explanation of clinical findings (Please Explain) - ARF - either extremely prerenal or is ATN - we'll need to see how his progress unfolds and f/u on improvement, urine studies etc to truly delineate if it's ATN. Please be patient. Thank you. ( ) Unable to determine (Please Define) ( ) Need to Discuss ( ) Not Agree The medical record reflects the following clinical findings, treatment, and risk factors. Clinical Indicators: BP 89/57, tachycardia 121, BUN 63, Creatinine 3.30, GFR 16.0, Treatment: IVF boluses, IVF primary, Parker, Strict I/O's, daily PRP's, Risk Factors: Age, hypotension, Please clarify and document your clinical opinion in the progress notes and discharge summary. Terms such as "probable", "suspected", "likely", "questionable", "possible", or "still to be ruled out" are acceptable. IF IN AGREEMENT, YOU MUST DOCUMENT ABOVE DIAGNOSTIC STATEMENT IN DAILY PROGRESS NOTES AND DISCHARGE SUMMARY. This document is not part of the patient's record. ATNWhat is Acute Renal Failure with Acute Tubular Necrosis? ARF with ATN is a medical condition involving the of the tubular cells that form the tubule; the tubule is responsible for transporting urine to the ureters while re-absorbing water and highly concentrating salts and metabolic byproducts. Tubular cells continually replace themselves and if the cause of ATN is treated, recovery is likely. There are 2 classifications of ATN: toxic and ischemic (generally due to hypotension). Toxic ATN occurs when the tubular cells are exposed to a nephrotoxic substance. Ischemic ATN occurs when the tubular cells do not get enough oxygen, a condition that they are highly sensitive and susceptible to due to their very high metabolism. What are the Risks? Blood transfusion reactions, injury or trauma that damages the muscles, septic shock or other forms of shock, hypotension lasting longer than 30 minutes (the sensitivity of individual patients to a decrease in renal perfusion is variable - in some patients, a few minutes of hypotension is sufficient to induce ATN, whereas others are able to tolerate hours of renal ischemia without structural damage to the kidney), exposure to medications that are toxic to the kidneys (aminoglycosides, amphotericin B, cisplatin, contrast media, pentamidine, foscarnet, heme-pigments (as in conditions such as rhabdomyolysis), IV immunoglobulin, and mannitol). What are the Clinical Indicators? Some or all of the following: nausea/vomiting, lethargy, delirium, coma, decreased urine output or oliguria (does not always occur), generalized edema How is it Diagnosed? The gold standard is a poor response to a fluid repletion within 24-72 hours. Diagnosis may be made by FeNA (fractional excretion of sodium) >2 and the presence of muddy brown granular and epithelial casts in the urinalysis. Urine sodium may be high (>250 meq/l/day). Importantly, the absence of these urinary findings does not exclude ATN. On histopathology, there is usually tubulorrhexis or localized necrosis of the epithelial lining in the renal tubules. Renal biopsy may be performed but is rarely done; ATN is generally a clinical diagnosis. How is it Treated? In many patients, ATN is reversible. The goal of treatment is supportive and to prevent life threatening complications. Treatment focuses on preventing the excess build-up of fluids and waste by-products, while allowing the kidneys to heal. Treatment may include: identification and treatment of the underlying cause, restricting fluid intake to a volume equal to the volume of urine produced, restricting substances normally filtered by the kidneys (protein, sodium, potassium), and dialysis in severe cases. Prognosis: The duration of symptoms varies. The decreased urine output phase (if it occurs) may last from a few days to 6 weeks or more. This is occasionally followed by a period of high urine output where the healed and newly functioning kidneys try to clear the body of excess fluid and waste. Possible termite exterminator complications include chronic renal failure. References: Dr. Davey Christian MD - [employer], [facility]; Acute Tubular Necrosis (ATN). Nephrology Channel. GoGuide[employer]Alianza. 2008; Keyshawn WILSON, Alton Blancas, IMAN Lopez (January 2001). "Coexpressed nitric oxide synthase and apical bets integrins influence tubule cell adhesion after cytokine-induced injury. Journal of the English Society of Nephrology 12(11):2370-83.PMID [id number]; Jony LUGO (1998). "Epithelial cell shedding in acute renal injury." Clinical and Experimental Pharmacology & Physiology 25 (3-4): 273-5. doi: 10.1111/j.[id number].t01-3.x. PMID 0447526; Acute Tubular Necrosis. www.nlm.nih.gov/medlineplus/ency/article/164824.htm Thank You, Jorge Fischer RN [phone]
[2016-06-14 08:03] LABS: BUN/CREATININE RATIO 23.2 (10-20); CALCIUM 7.8 mg/dl (8.5-10.1); CREATININE 2.3 mg/dl (0.60-1.40); MAGNESIUM 2.3 mg/dl (1.8-2.4); POTASSIUM 3.3 mmol/L (3.5-5.1)
[2016-06-14] MEDS ORDERED: AMIODARONE IV BOLUS / DRIP IV STA (09:02)
[2016-06-14] MEDS ORDERED: AMIODARONE / D5W 100 ML IV SCH (09:15)
[2016-06-14] MEDS ORDERED: SODIUM CHLORIDE 0.9% 1000ML 1,000 ML IV ONE (09:15)
--- NOTE | 2016-06-14 09:28 | ECHOCARDIOGRAM REPORT ---
*NOTICE TO RECEIVING DEMOCRAT AGENCY This information is strictly Confidential and protected under [place] law. [place] law prohibits you from making any further disclosure of this information unless further disclosure is expressly permitted by the written consent of the person to whom it pertains or is authorized by law. A general authorization for the release of medical or other information is not sufficient for this purpose. Hospital accepts no responsibility if the information is made available to any other person, INCLUDING THE PATIENT. Interpretation Summary * Name: LENY RODRIGUEZ Study Date: 06/14/2016 06:36 AM BP: 98/61 mmHg * Patient Location: .ART TRACER\S\W360\S\1 HR: 134 * : 1930 (M/d/yyyy) Gender: Male Height: 70 in * Age: 86 yrs Ethnicity: [place] Weight: 196 lb * Ordering Physician: Artemio Arthur * Performed By: Hilaria Vasquez RDCS * * Reason For Study: Elevated troponin * BSA: 2.1 m2 * -- Conclusions -- * 1. Normal left ventricular size with hyperdynamic systolic function. EF > 70%. Left ventricle not well visualized but some images suggests severe hypertrophy of basal anteroseptum, otherwise moderate concentric left ventricular hypertrophy. * 2. One image suggests systolic anterior motion of the mitral leaflet with intracavitary obstruction (peak gradient 36 mmHg). * 3. Mild left atrial dilation. * 4. Probable mild aortic stenosis. * 5. Poor image quality. * 6. Technically difficult study; enhanced with IV Definity. * 7. Atrial fibrillation with RVR. * 8. No prior study available for comparison. Procedure Details * A complete two-dimensional transthoracic echocardiogram was performed (2D, M-mode, Doppler and color flow Doppler). * The study was technically limited. * The study was technically difficult. * Limited views were obtained. * A contrast injection of Definity was performed to improve assessment of LV function. * Contrast was injected into an intravenous site in the left arm. * One vial of Definity ultrasound contrast was diluted in normal saline to a total volume of 10 ml. A total of '2' ml of solution was administered during imaging. * Lot # [id number] of Definity utilized for procedure. * Expiration date JUN 26. * The attending nurse who injected the contrast agent was Johanny Barajas RN. Left Ventricle * Normal left ventricular size with hyperdynamic systolic function. EF > 70%. Left ventricle not well visualized but some images suggests severe hypertrophy of basal anteroseptum. Right Ventricle * The right ventricle is normal in size and function. * The right ventricular systolic function is normal as assessed by tricuspid annular plane systolic excursion (TAPSE) (normal >1.5 cm). Atria * The left atrium is mildly dilated. * Right atrial size is normal. Mitral Valve * The mitral valve is not well visualized. * There is no mitral valve stenosis. * There is no mitral regurgitation noted. Tricuspid Valve * The tricuspid valve is not well visualized. * There is no tricuspid stenosis. * Significant tricuspid regurgitation is absent. Aortic Valve * The aortic valve is not well visualized. * Probable mild aortic stenosis. * There is no significant aortic regurgitation. Pulmonic Valve * The pulmonic valve is not well visualized. Great Vessels * Normal pulmonary venous flow pattern. MMode 2D Measurements and Calculations IVSd 1.7 cm LVIDd 3.7 cm LVPWd 1.4 cm IVS/LVPW 1.2 EDV(Teich) 57.1 ml EDV(cubed) 49.6 ml LV mass(C)d 207.9 grams LV mass(C)dI 100.4 grams/m\S\2 Ao root diam 3.7 cm Ao root area 10.5 cm\S\2 asc Aorta Diam 3.5 cm Doppler Measurements and Calculations MV E max rox 92.1 cm/sec MV dec time 0.16 sec Ao V2 max 284.6 cm/sec Ao max PG 32.4 mmHg Ao max PG (full) 24.7 mmHg Ao V2 mean 187.8 cm/sec Ao mean PG 17.1 mmHg Ao mean PG (full) 13.3 mmHg Ao V2 VTI 35.2 cm LV V1 max PG 7.7 mmHg LV V1 mean PG 3.9 mmHg LV V1 max 139.0 cm/sec LV V1 mean 89.3 cm/sec LV V1 VTI 23.6 cm SV(Ao) 371.5 ml SI(Ao) 179.5 ml/m\S\2 TV E max rox 41.9 cm/sec PA V2 max 72.7 cm/sec PA max PG 2.1 mmHg PA acc slope 296.1 cm/sec\S\2 PA acc time 0.18 sec PA pr(Accel) -0.17 mmHg
[2016-06-14] MEDS ORDERED: AMIODARONE / D5W 200 ML IV SCH (09:30)
--- NOTE | 2016-06-14 10:01 | SURGERY PROGRESS NOTE ---
DATE: 06/14/2016 DATE: 06/14/2016. TIME: 9:15 in the morning. Since I last saw him earlier this morning, the patient was having an echo, apparently went into atrial fibrillation, was transferred to the unit, was seen by the medical service and cardiology and they felt that the rate has been controlled and go ahead and could still proceed with surgery. Discussed with anesthesia and they felt very uncomfortable doing surgery because his rate was still in atrial fib and his blood pressure is 90/56 and 77/50. They felt that he continues to be fluid resuscitated. Unfortunately, we have been trying to resuscitate him for 4 days. Medical service is reluctant to give him fluid at an aggressive rate because of his cardiac condition and with this, I think the patient will not get any better until we relieve his obstruction. In fact overnight he had 2250 mL of drainage through the NG tube. I have discussed this with Dr. Arthur again at this time and will see about proceeding within another 24 hours to see if they can resuscitate him better. Of note though his hemoglobin this morning is gradually coming down at 12.8 with rehydration and his creatinine has come down to 2.30 from 3.30 yesterday, so progress is being made in resuscitation even though quite slowly because of his limited aggressive fluid resuscitation that we can give in lieu of his cardiac status. SATISH
--- NOTE | 2016-06-14 10:12 | Anesthesiology Progress Note ---
Anesthesia Progress Note Date of Service Jun 14, 2016. Progress Notes The patient is an 86 y/o male scheduled for exploratory laparotomy today 2/2 small bowel obstruction. The patient has h/o HTN, mild , h/o PE, parkinsonism , myasthenia gravis, BPH, prostate ca, former smoker. The patient presented with a small bowel obstruction, acute kidney injury, and cardiac demand ischemia from his acute illness. He has been NPO for a few days, and was scheduled to have surgery today. The pt was recently transferred to the cardiac unit 2/2 new onset atrial fibrillation with rapid ventricular rate. His blood pressure has ranged from 70s-90s systolic and heart rate 120s-140s. An transthoracic echocardiogram was performed today showing a hyperdynamic LV with an EF >70%, severe hypertrophy of basal anteroseptum, mod LVH, systolic anterior motion of mitral leaflet with intracavitary obstruction, and mild . I spoke with the Dr. Arthur, and it was agreed that the patient needed further fluid resuscitation and improved heart rate control prior to going to the operating room. I updated the patient and Dr. Cleveland. The pt will be re- evaluated after further optimization prior to going to the operating room.
[2016-06-14] MEDS: HEPARIN SOD 5000 UNIT/0.5 ML CARP SQ SCH ×2 (10:50→20:59)
[2016-06-14] MEDS: IPRATROPIUM BROMIDE HFA INHALER INH SCH ×2 (12:56→18:00)
[2016-06-14] MEDS: LEValbuterol HFA 15GM INHALER INH SCH ×3 (12:56→23:58)
[2016-06-14] MEDS: AMIODARONE / D5W 200 ML IV SCH (16:18)
[2016-06-14] MEDS: METOPROLOL TARTRATE 1 MG/ML VIAL IV. SCH ×3 (16:20→23:53)
--- NOTE | 2016-06-14 19:08 | Progress Note ---
Subjective Date of Service: Jun 14, 2016. Subjective Pt evaluation today including: conversation w/ patient, conversation w/ family , physical exam, chart review, lab review, review of studies, conversation w/ technical sales consultant, review of inpatient medication list called due to afib RVR totally asymptomatic - no cp no sob no pressure bowel symptoms much better no significant abdominal pain or nausea. ongoing high output from NGT still mildly confused updated dtr revisited multiple times today d/w surgery and anesthesia Problem List Medical Problems: (1) Acute kidney injury Status: Acute (2) Dehydration Status: Acute (3) Nausea Status: Acute (4) Vomiting Status: Acute Review of Systems Respiratory: No shortness of breath Cardiac: No chest pain, No palpitations Abdomen: No nausea, No pain ros otherwise negative except for as above Objective Vital Signs Date Time Temp Pulse Resp B/P Pulse Ox O2 Delivery O2 Flow Rate FiO2 06/14/16 17:50 102 92/58 06/14/16 16:28 95/57 06/14/16 16:20 113 91/60 06/14/16 16:00 95 Nasal Cannula 3.0 06/14/16 15:58 36.9 113 18 90/57 94 06/14/16 12:49 36.6 98 16 90/59 95 Nasal Cannula 3.0 06/14/16 12:45 111 82/55 06/14/16 12:43 109 86/54 06/14/16 12:41 106 98/61 06/14/16 12:38 112 91/58 06/14/16 12:35 123 102/65 06/14/16 12:29 127 99/64 06/14/16 12:27 127 99/64 06/14/16 12:19 116 82/44 06/14/16 12:08 128 107/62 06/14/16 12:00 94 Nasal Cannula 3.0 06/14/16 12:00 122 94/61 06/14/16 11:45 126 94/65 06/14/16 11:30 125 89/55 06/14/16 10:50 125 86/47 06/14/16 10:30 123 81/46 06/14/16 10:19 108 101/64 06/14/16 09:48 89/60 06/14/16 09:45 132 90/56 06/14/16 09:25 133 77/50 94 Nasal Cannula 3.0 06/14/16 08:48 36.8 135 17 89/60 94 Nasal Cannula 3.0 06/14/16 08:18 36.6 123 16 93 4.0 06/14/16 07:50 Nasal Cannula 4.0 06/14/16 07:45 95 14 94 Nasal Cannula 4.0 06/14/16 07:33 36.6 123 20 96/64 93 Nasal Cannula 3.5 06/14/16 02:15 72 16 93 Nasal Cannula 4.0 06/14/16 00:29 107 16 98/61 95 06/14/16 00:00 Nasal Cannula 4.0 06/13/16 22:47 36.5 114 16 86/57 92 Nasal Cannula 3.0 06/13/16 20:18 109 16 93 Nasal Cannula 4.0 Physical Exam General Appearance: no apparent distress Eyes: EOMI ENT: hearing grossly normal Neck: trachea midline Respiratory/Chest: lungs clear, normal breath sounds (diminished bibasilar but no rales), no respiratory distress, no accessory muscle use Cardiovascular: + tachycardia, + irregularly irregular Abdomen: non tender, soft Extremities: normal range of motion Neurologic/Psychiatric: building materials sales attendant II-XII nml as tested, alert, + pertinent finding ( mildly confused) Skin: normal color, warm/dry Laboratory Results Last 24 Hours Test 06/14/16 07:23 06/14/16 18:59 White Blood Count 14.45 K/uL Red Blood Count 4.15 M/uL Hemoglobin 12.8 g/dL Hematocrit 36.2 % Mean Corpuscular Volume 87.2 fL Mean Corpuscular Hemoglobin 30.8 pg Mean Corpuscular Hemoglobin Concent 35.4 g/dl Platelet Count 184 K/uL Mean Platelet Volume 9.5 fL Neutrophils (%) (Auto) 85.3 % Lymphocytes (%) (Auto) 5.7 % Monocytes (%) (Auto) 8.2 % Eosinophils (%) (Auto) 0.4 % Basophils (%) (Auto) 0.1 % Neutrophils # (Auto) 12.33 K/uL Lymphocytes # (Auto) 0.82 K/uL Monocytes # (Auto) 1.19 K/uL Eosinophils # (Auto) 0.06 K/uL Basophils # (Auto) 0.01 K/uL RDW Standard Deviation 48.9 fL RDW Coefficient of Variation 15.2 % Immature Granulocyte % (Auto) 0.3 % Immature Granulocyte # (Auto) 0.04 K/uL Sodium Level 140 mmol/L Potassium Level 3.3 mmol/L Chloride Level 104 mmol/L Carbon Dioxide Level 23 mmol/L Anion Gap 13.0 mmol/L Blood Urea Nitrogen 53 mg/dl Creatinine 2.30 mg/dl Est Creatinine Clear Calc Drug Dose 25.9 ml/min Estimated GFR () 28.7 Estimated GFR (Non- 24.8 BUN/Creatinine Ratio 23.2 Random Glucose 95 mg/dl Calcium Level 7.8 mg/dl Magnesium Level 2.3 mg/dl Assessment and Plan afib RVR -likely incited by hypovolemia causing sinus tachy - now ongoing due to arrythmia -rate control - due to low pressures first used amiodarone then added lopressor - rates improving -appearing fortunately quite stable -echo noted - see report - likely to at least a degree low BP due to poor filling and due to tachycardia mediated outflow obstruction -- both should improve w rate control; can't anticoagulate at this time due to necessary impending surgery hypotension -see above - likely rate + low volume -ongoing fluid support and rate control hypokalemia -supplement, goal of 4; mag OK SBO -concerning given no prior abdominal surgeries -for OR once stable enough with above -NGT, pain and nausea control dehydration w ARF -appearing due to volume loss -IVF, creatinine is improving aspiration pneumonia w hypoxia -due to vomiting -continue zosyn, improving elevated troponin -nothing worrisome for STEMI or NSTEMI on ekg, echo or trend of labs - likely demand ischemia from acute illness and/or poor clearance from ARF accentuated by marked LVH - follow DVT proph -heparin SQ Hypercholesterolemia--hold atorvastatin 10 mg by mouth at bedtime. Restless leg syndrome--hold pramipexole 0.25 mg by mouth at bedtime. Parkinsonism--hold carbidopa/levodopa 25/100, 1 tablet by mouth 3 times a day. follow closely for any worsening in sx Vitamin B12 deficiency--hold supplement 1000 g by mouth every morning.
[2016-06-14 19:58] LABS: BUN/CREATININE RATIO 25.2 (10-20); CREATININE 1.7 mg/dl (0.60-1.40); POTASSIUM 3.4 mmol/L (3.5-5.1)
[2016-06-14] MEDS: POTASSIUM CHLR 10 MEQ / WTR 10 MEQ in PREMIXED WATER 100 ML IV SCH ×3 (20:35→22:36)
[2016-06-15] VITALS (16 sets, daily range): BP systolic 95–124; BP diastolic 62–83; PULSE 99–122; TEMP 36.4–36.7; O2SAT 91–96
[2016-06-15] MEDS: PIPERACILL/TAZOBAC IV 3.375 GM in DEXTROSE 5% 100ML 100 ML IV SCH ×3 (02:08→18:44)
[2016-06-15] MEDS: AMIODARONE / D5W 200 ML IV SCH ×2 (02:27→14:00)
[2016-06-15] MEDS: METOPROLOL TARTRATE 1 MG/ML VIAL IV. SCH ×6 (04:51→23:52)
[2016-06-15] MEDS ORDERED: METOPROLOL TARTRATE 1 MG/ML VIAL IV STA (05:16)
[2016-06-15 06:17] LABS: BASO % 0.1 %; BASO ABS # 0.01 K/uL (0-0.2); COMPLETE YES; EOS % 1.1 %; HEMATOCRIT 36.1 % (42-52); IG% 0.2 %; LYMPH % 7.6 %; LYMPH ABS # 0.93 K/uL (1.2-3.4); MEAN CELL VOLUME 87.6 fL (80-100); MEAN CORPUSCULAR HEMOGLOBIN 30.6 pg (25-34); MEAN CORPUSCULAR HGB CONC 34.9 g/dl (32-36); MONO % 7.2 %; NEUT % 83.8 %; PLATELET COUNT 190 K/uL (130-400); RED BLOOD COUNT 4.12 M/uL (4.7-6.1); WHITE BLOOD COUNT 12.16 K/uL (4.8-10.8)
[2016-06-15] MEDS: LEValbuterol HFA 15GM INHALER INH SCH ×4 (06:37→23:45)
[2016-06-15] MEDS: IPRATROPIUM BROMIDE HFA INHALER INH SCH ×5 (06:37→23:45)
[2016-06-15] MEDS: SODIUM CHLORIDE 0.9% 1000ML 1,000 ML IV SCH ×2 (06:38→14:30)
[2016-06-15 06:45] LABS: CREATININE 1.4 mg/dl (0.60-1.40); MAGNESIUM 2.3 mg/dl (1.8-2.4); POTASSIUM 3.4 mmol/L (3.5-5.1)
[2016-06-15 06:55] LABS: THYROID STIMULATING HORMONE 1.52 uIu/ml (0.300-4.500)
--- NOTE | 2016-06-15 08:05 | SURGERY PROGRESS NOTE ---
DATE: 06/15/2016 DATE: 06/15/2016. Harsh is being slowly resuscitated, although he still feels like he is dry. His last vitals showed a temperature of 36.7, his pulse is anywhere between 116 and 99, blood pressure 98/62. I\T\O he had 1450 out of NG overnight. He had 4 liters yesterday and certainly we are making no progress along those lines. He did have a small bowel movement. Laboratory jorgensen, his hemoglobin is 12.6 this morning, slightly dropped from rehydration. His chemistries BUN is down to 36, creatinine 1.40. His abdomen is a little bit more distended, probably from the fluid resuscitation. At this point we will go ahead and plan to do surgery on him today as I said before it is not going to improve the whole situation until we release his obstruction. He is agreeable to that. We will plan for exploratory lap, likely lysis of adhesions and hopefully we do not have to resect any bowel.
[2016-06-15] MEDS: HEPARIN SOD 5000 UNIT/0.5 ML CARP SQ SCH ×2 (09:00→21:09)
[2016-06-15] MEDS ORDERED: HYDROmorphone INJ 1 MG/ML SYR IV PRN (09:45)
[2016-06-15] MEDS ORDERED: FENTANYL CITRATE INJ 50 MCG/1 ML 2 ML VIAL IV PRN (09:45)
[2016-06-15] MEDS ORDERED: ONDANSETRON INJ 2 MG/ML 2 ML VIAL IV PRN (09:45)
[2016-06-15] MEDS ORDERED: ATROPINE SULFATE 0.1 MG/ML 5ML SYR IV PRN (09:45)
[2016-06-15] MEDS ORDERED: MEPERIDINE HCL 25 MG/ML CARP IV PRN (09:45)
[2016-06-15] MEDS ORDERED: LABETALOL HCL IV 5 MG/ML 20ML IV PRN (09:45)
[2016-06-15] MEDS ORDERED: EpHEDrine SULFATE INJ 50 MG/ML AMP IV PRN (09:45)
[2016-06-15] MEDS ORDERED: NEOSTIGMINE METHYLSULFATE 5 MG/5 ML SYR ONE (10:03)
[2016-06-15] MEDS ORDERED: PROPOFOL IV EMULSION 10 MG/ML 20 ML VIAL IV ONE (10:03)
[2016-06-15] MEDS ORDERED: LIDOCAINE HCL 2% 2 ML VIAL (20MG/ML) ONE (10:03)
[2016-06-15] MEDS ORDERED: GLYCOPYRROLATE INJ 0.2 MG/ML VIAL ONE ×2 (10:03→11:34)
[2016-06-15] MEDS ORDERED: ONDANSETRON INJ 2 MG/ML 2 ML VIAL ONE (10:03)
[2016-06-15] MEDS ORDERED: ROCURONIUM BROMIDE 10 MG/ML 5 ML VIAL ONE (10:03)
[2016-06-15] MEDS ORDERED: DEXAMETHASONE SOD INJ 4 MG/ML VIAL ONE (10:03)
[2016-06-15] MEDS ORDERED: FENTANYL CITRATE INJ 50 MCG/1 ML 2 ML VIAL ONE (10:04)
[2016-06-15] MEDS ORDERED: MIDAZOLAM HCL 1 MG/ML 2ML VIAL ONE (10:04)
--- NOTE | 2016-06-15 11:01 | [facility] Post Operative Brief Note ---
Immediate Operative Summary Operative Date Jun 15, 2016. Pre-Operative Diagnosis sbo Post-Operative Diagnosis sbo secondary to adhesive band Procedure(s) Performed exp lap lyses of adhesion Surgeon rosaura Triage Technician Surgeon(s) robi triplett Estimated Blood Loss 3cc Findings complete obstruction dital jejunum with adhesive band
--- NOTE | 2016-06-15 12:25 | Anesthesiology Progress Note ---
Anesthesia Post Op Note Date & Time Jun 15, 2016 at 12:25 Vital Signs Pain Intensity: 2 Vital Signs Past 12 Hours Date Time Temp Pulse Resp B/P Pulse Ox O2 Delivery O2 Flow Rate FiO2 06/15/16 12:08 114 20 130/82 06/15/16 12:08 117 20 94 06/15/16 12:05 140/68 06/15/16 12:03 112 24 06/15/16 12:03 106 24 89 06/15/16 12:00 138/85 06/15/16 11:58 110 21 94 06/15/16 11:58 117 21 06/15/16 11:57 110 20 94 06/15/16 11:57 36.4 115 20 06/15/16 11:55 133/66 06/15/16 11:52 111 21 95 06/15/16 11:52 120 21 06/15/16 11:50 149/86 06/15/16 11:47 111 19 06/15/16 11:47 112 19 95 06/15/16 11:45 146/101 06/15/16 11:42 113 20 89 06/15/16 11:42 119 20 06/15/16 11:40 145/98 06/15/16 11:40 Nasal Cannula 4 06/15/16 11:37 115 20 06/15/16 11:37 104 20 95 06/15/16 11:35 155/91 06/15/16 11:32 130 23 91 06/15/16 11:32 122 23 06/15/16 11:30 145/100 06/15/16 11:27 120 23 06/15/16 11:27 124 23 91 06/15/16 11:25 171/106 06/15/16 11:22 113 21 93 06/15/16 11:22 116 21 06/15/16 11:18 149/115 06/15/16 11:17 114 16 06/15/16 11:17 16 06/15/16 11:12 36.2 114 20 149/115 92 Mask 10 06/15/16 08:50 36.5 102 20 124/67 64 Nasal Cannula 2 06/15/16 08:35 109 95/66 06/15/16 08:33 109 95/66 06/15/16 08:27 36.5 117 19 121/68 94 Nasal Cannula 3.0 06/15/16 08:00 95 Nasal Cannula 3.0 06/15/16 05:44 99 98/62 06/15/16 05:41 99 98/62 06/15/16 04:51 117 116/91 06/15/16 04:32 36.7 116 22 105/70 91 Room Air 06/15/16 04:00 Nasal Cannula 3.0 Notes Mental Status: alert / awake / arousable, participated in evaluation Pt Amnestic to Procedure: Yes Nausea / Vomiting: adequately controlled Pain: adequately controlled Airway Patency, RR, SpO2: stable & adequate BP & HR: stable & adequate Hydration State: stable & adequate Anesthetic Complications: no major complications apparent
[2016-06-15] MEDS: POTASSIUM CHLR 10 MEQ / WTR 10 MEQ in PREMIXED WATER 100 ML IV SCH ×2 (12:45→13:45)
[2016-06-15] MEDS ORDERED: METOPROLOL TARTRATE 1 MG/ML VIAL ONE (13:49)
--- NOTE | 2016-06-15 14:03 | OPERATIVE REPORT ---
DATE OF OPERATION: 06/15/2016 SURGEON: Dr. Cleveland. HEALTH SAFETY AND ENVIRONMENT MANAGER: Farhad Montoya PA-C. PREOPERATIVE DIAGNOSIS: Bowel obstruction. POSTOPERATIVE DIAGNOSIS: Same, complete obstruction of the mid small bowel by adhesive band. PROCEDURE: Exploratory lap, lysis of adhesive band. SUMMARY: The patient was brought into the operating theater. The abdomen was prepped with Betadine scrub and solution and properly draped. We made an incision just around the umbilicus, deepened through subcutaneous tissue into the abdomen. Once we entered the abdomen, we could see dilated small bowel. We then basically started pulling out the small bowel out of the abdomen. We identified on the left side, almost left lower quadrant, there was an adhesive band that was completely obstructing the small bowel. We divided this and the area was palpated, there were no masses appreciated and this was definitely a transition point. We ran the small bowel, then to ligament of Treitz all the way to the ileocecal valve. There were no other adhesions there. The patient never had any previous surgery. The abdomen was then closed with a running #2 PDS suture. I placed my hand and checked the NG tube, which was in the stomach, but at this point I think we will probably take out at the end of the procedure since this pretty much will be decompressed. As stated, the midline incisions were #1 PDS suture in a continuous fashion and 3-0 Vicryl and srinivasa for skin edges. Dressing was applied. The procedure was tolerated well by the patient. Estimated blood loss approximately 3 mL. The patient was taken to the recovery room in good condition. I attest to the content of the Intraoperative Record and any orders documented therein. Any exceptio ns are noted below.
[2016-06-15 17:10] LABS: BASO % 0.1 %; BASO ABS # 0.01 K/uL (0-0.2); COMPLETE YES; HEMATOCRIT 37.3 % (42-52); IG% 0.4 %; LYMPH ABS # 0.35 K/uL (1.2-3.4); MEAN CELL VOLUME 88.8 fL (80-100); MEAN CORPUSCULAR HEMOGLOBIN 31.7 pg (25-34); MEAN CORPUSCULAR HGB CONC 35.7 g/dl (32-36); MEAN PLATELET VOLUME 9.8 fL (7.4-10.4); MONO % 2.6 %; NEUT % 93.9 %; PLATELET COUNT 200 K/uL (130-400); WHITE BLOOD COUNT 11.57 K/uL (4.8-10.8)
[2016-06-15 17:44] LABS: BUN/CREATININE RATIO 24.6 (10-20); CREATININE 1.3 mg/dl (0.60-1.40); MAGNESIUM 2.5 mg/dl (1.8-2.4)
--- NOTE | 2016-06-15 17:50 | Progress Note ---
Subjective Date of Service: Jun 15, 2016. Subjective Pt evaluation today including: conversation w/ patient, physical exam, chart review, lab review, review of inpatient medication list doing better post op only complaint is lower abodminal soreness at surgery site no cp no sob no nausea no vomiting nursing notes he's been easier to control w afib and BP as well Problem List Medical Problems: (1) Acute kidney injury Status: Acute (2) Dehydration Status: Acute (3) Nausea Status: Acute (4) Vomiting Status: Acute Review of Systems ros otherwise negative except for as above Objective Vital Signs Date Time Temp Pulse Resp B/P Pulse Ox O2 Delivery O2 Flow Rate FiO2 06/15/16 16:59 113 111/76 06/15/16 15:20 36.4 102 22 111/76 96 Nasal Cannula 4.0 06/15/16 14:20 103 20 117/80 95 Nasal Cannula 4.0 06/15/16 13:46 122 114/64 06/15/16 13:37 122 114/64 95 Nasal Cannula 4.0 06/15/16 13:00 110 122/83 94 Nasal Cannula 4.0 06/15/16 12:30 95 Nasal Cannula 4.0 06/15/16 12:30 36.4 118 16 124/64 92 Nasal Cannula 4.0 06/15/16 12:08 114 20 130/82 06/15/16 12:08 117 20 94 06/15/16 12:05 140/68 06/15/16 12:03 112 24 06/15/16 12:03 106 24 89 06/15/16 12:00 138/85 06/15/16 11:58 110 21 94 06/15/16 11:58 117 21 06/15/16 11:57 110 20 94 06/15/16 11:57 36.4 115 20 06/15/16 11:55 133/66 06/15/16 11:52 111 21 95 06/15/16 11:52 120 21 06/15/16 11:50 149/86 06/15/16 11:47 111 19 06/15/16 11:47 112 19 95 06/15/16 11:45 146/101 06/15/16 11:42 113 20 89 06/15/16 11:42 119 20 06/15/16 11:40 145/98 06/15/16 11:40 Nasal Cannula 4 06/15/16 11:37 115 20 06/15/16 11:37 104 20 95 06/15/16 11:35 155/91 06/15/16 11:32 130 23 91 06/15/16 11:32 122 23 06/15/16 11:30 145/100 06/15/16 11:27 120 23 06/15/16 11:27 124 23 91 06/15/16 11:25 171/106 06/15/16 11:22 113 21 93 06/15/16 11:22 116 21 06/15/16 11:18 149/115 06/15/16 11:17 114 16 06/15/16 11:17 16 06/15/16 11:12 36.2 114 20 149/115 92 Mask 10 06/15/16 08:50 36.5 102 20 124/67 64 Nasal Cannula 2 06/15/16 08:35 109 95/66 06/15/16 08:33 109 95/66 06/15/16 08:27 36.5 117 19 121/68 94 Nasal Cannula 3.0 06/15/16 08:00 95 Nasal Cannula 3.0 06/15/16 05:44 99 98/62 06/15/16 05:41 99 98/62 06/15/16 04:51 117 116/91 06/15/16 04:32 36.7 116 22 105/70 91 Room Air 06/15/16 04:00 Nasal Cannula 3.0 06/15/16 00:00 94 Nasal Cannula 3.0 06/14/16 23:53 111 100/62 06/14/16 23:49 36.8 111 22 100/67 94 Nasal Cannula 3.0 06/14/16 20:00 93 Nasal Cannula 06/14/16 19:48 100 100/68 06/14/16 19:44 108 102/66 06/14/16 19:39 36.8 108 22 102/66 93 Nasal Cannula 3.0 06/14/16 19:27 36.7 76 18 124/63 95 06/14/16 17:50 102 92/58 Physical Exam General Appearance: no apparent distress Eyes: EOMI ENT: hearing grossly normal Neck: trachea midline Respiratory/Chest: lungs clear, no respiratory distress, no accessory muscle use, + decreased breath sounds (bibasilar but no r/r/w good effort) Cardiovascular: + irregularly irregular (rate better controlled) Extremities: normal range of motion Neurologic/Psychiatric: 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, alert, + pertinent finding ( stil seems pleasantly confused c/w delirium) Skin: normal color, warm/dry Laboratory Results Last 24 Hours Test 06/14/16 19:29 06/15/16 05:30 06/15/16 17:00 Sodium Level 141 mmol/L 141 mmol/L 140 mmol/L Potassium Level 3.4 mmol/L 3.4 mmol/L 4.0 mmol/L Chloride Level 104 mmol/L 104 mmol/L 104 mmol/L Carbon Dioxide Level 25 mmol/L 26 mmol/L 27 mmol/L Anion Gap 12.0 mmol/L 11.0 mmol/L 9.0 mmol/L Blood Urea Nitrogen 43 mg/dl 36 mg/dl 32 mg/dl Creatinine 1.70 mg/dl 1.40 mg/dl 1.30 mg/dl Est Creatinine Clear Calc Drug Dose 35.0 ml/min 39.1 ml/min 42.1 ml/min Estimated GFR () 41.4 52.4 57.3 Estimated GFR (Non- 35.7 45.2 49.4 BUN/Creatinine Ratio 25.2 26.0 24.6 Random Glucose 105 mg/dl 102 mg/dl 126 mg/dl Calcium Level 8.0 mg/dl 8.0 mg/dl 8.0 mg/dl Troponin I 0.659 ng/ml White Blood Count 12.16 K/uL 11.57 K/uL Red Blood Count 4.12 M/uL 4.20 M/uL Hemoglobin 12.6 g/dL 13.3 g/dL Hematocrit 36.1 % 37.3 % Mean Corpuscular Volume 87.6 fL 88.8 fL Mean Corpuscular Hemoglobin 30.6 pg 31.7 pg Mean Corpuscular Hemoglobin Concent 34.9 g/dl 35.7 g/dl Platelet Count 190 K/uL 200 K/uL Mean Platelet Volume 10.0 fL 9.8 fL Neutrophils (%) (Auto) 83.8 % 93.9 % Lymphocytes (%) (Auto) 7.6 % 3.0 % Monocytes (%) (Auto) 7.2 % 2.6 % Eosinophils (%) (Auto) 1.1 % 0.0 % Basophils (%) (Auto) 0.1 % 0.1 % Neutrophils # (Auto) 10.18 K/uL 10.86 K/uL Lymphocytes # (Auto) 0.93 K/uL 0.35 K/uL Monocytes # (Auto) 0.88 K/uL 0.30 K/uL Eosinophils # (Auto) 0.13 K/uL 0.00 K/uL Basophils # (Auto) 0.01 K/uL 0.01 K/uL RDW Standard Deviation 49.2 fL 49.3 fL RDW Coefficient of Variation 15.1 % 15.2 % Immature Granulocyte % (Auto) 0.2 % 0.4 % Immature Granulocyte # (Auto) 0.03 K/uL 0.05 K/uL Magnesium Level 2.3 mg/dl 2.5 mg/dl Thyroid Stimulating Hormone (TSH) 1.520 uIu/ml Assessment and Plan afib RVR -likely incited by hypovolemia causing sinus tachy - now ongoing due to arrythmia -rate control better - for now continue amio and lopressor - as situation stabilizes further hopefully can dc amio soon -echo noted - see report - will want to continue beta blockers and maximize as possible due to LVH and septal hypertrophy -TSH Ok hypotension -improved -continue fluids until PO intake improves, but likely won't need further boluses hypokalemia -supplemented, currently 4 SBO -post op day #0. was adhesional despite no prior abdominal surgeries dehydration w ARF -appearing due to volume loss -IVF, now #'s improving nicely aspiration pneumonia w hypoxia -due to vomiting -continue zosyn, improving -lungs other than bibasilar diminished are normal elevated troponin -demand ischemia duet o tachycardia and LVH worsened by poor CrCl w ARF DVT proph -heparin SQ Hypercholesterolemia--hold atorvastatin 10 mg by mouth at bedtime. Restless leg syndrome--hold pramipexole 0.25 mg by mouth at bedtime. Parkinsonism--hold carbidopa/levodopa 25/100, 1 tablet by mouth 3 times a day. follow closely for any worsening in sx Vitamin B12 deficiency--hold supplement 1000 g by mouth every morning.
[2016-06-15] MEDS: ACETAMINOPHEN IV 100 ML IV PRN (20:00)
[2016-06-16] VITALS (10 sets, daily range): BP systolic 90–128; BP diastolic 59–77; PULSE 68–117; TEMP 36.4–36.8; O2SAT 90–94
[2016-06-16] MEDS: PIPERACILL/TAZOBAC IV 3.375 GM in DEXTROSE 5% 100ML 100 ML IV SCH ×3 (02:14→18:32)
[2016-06-16] MEDS: SODIUM CHLORIDE 0.9% 1000ML 1,000 ML IV SCH ×3 (02:15→18:34)
[2016-06-16] MEDS: AMIODARONE / D5W 200 ML IV SCH (02:21)
[2016-06-16] MEDS: METOPROLOL TARTRATE 1 MG/ML VIAL IV. SCH (04:22)
[2016-06-16 05:31] LABS: BASO % 0.1 %; BASO ABS # 0.01 K/uL (0-0.2); COMPLETE YES; HEMATOCRIT 32.6 % (42-52); IG% 0.4 %; LYMPH % 4.5 %; LYMPH ABS # 0.51 K/uL (1.2-3.4); MEAN CELL VOLUME 87.9 fL (80-100); MEAN CORPUSCULAR HGB CONC 35.3 g/dl (32-36); MEAN PLATELET VOLUME 9.5 fL (7.4-10.4); MONO % 6.4 %; NEUT % 88.6 %; PLATELET COUNT 200 K/uL (130-400); RED BLOOD COUNT 3.71 M/uL (4.7-6.1); WHITE BLOOD COUNT 11.39 K/uL (4.8-10.8)
[2016-06-16 05:51] LABS: BUN/CREATININE RATIO 23.1 (10-20); CALCIUM 7.5 mg/dl (8.5-10.1); CREATININE 1.1 mg/dl (0.60-1.40); MAGNESIUM 2.3 mg/dl (1.8-2.4); POTASSIUM 3.8 mmol/L (3.5-5.1)
[2016-06-16] MEDS: LEValbuterol HFA 15GM INHALER INH SCH ×3 (06:15→18:32)
[2016-06-16] MEDS: IPRATROPIUM BROMIDE HFA INHALER INH SCH ×3 (06:16→18:33)
[2016-06-16] MEDS: HEPARIN SOD 5000 UNIT/0.5 ML CARP SQ SCH ×2 (07:59→21:42)
[2016-06-16] MEDS: METOPROLOL TARTRATE 25 MG TAB PO SCH ×4 (07:59→21:39)
[2016-06-16] MEDS ORDERED: METOPROLOL TARTRATE 1 MG/ML VIAL IV PRN (08:00)
[2016-06-16] MEDS ORDERED: POTASSIUM CHLORIDE 10 MEQ TABCR PO ONE (08:00)
[2016-06-16] MEDS: ACETAMINOPHEN IV 100 ML IV PRN (08:46)
--- NOTE | 2016-06-16 11:03 | Surgery Progress Note ---
Surgery Progress Note Date of Service Jun 16, 2016. Subjective Post OP Day: 1 + diet (tolerating clears), + feeling well, + pain controlled, + vomiting (one episode following drinking coke), No bowel movement, No flatus Objective Vital Signs: Date Time Temp Pulse Resp B/P Pulse Ox O2 Delivery O2 Flow Rate FiO2 06/16/16 10:33 36.8 68 18 90/65 91 Room Air 06/16/16 08:00 Room Air 06/16/16 07:04 36.4 117 17 120/77 93 Nasal Cannula 4.0 06/16/16 04:22 102 107/70 06/16/16 04:00 36.5 107 110/73 93 06/16/16 04:00 93 Nasal Cannula 4.0 06/16/16 00:00 94 Nasal Cannula 4.0 06/15/16 23:52 105 106/70 06/15/16 23:23 36.4 106 19 117/65 94 Nasal Cannula 4.0 06/15/16 20:07 121 106/68 06/15/16 20:06 121 106/68 06/15/16 20:00 92 Nasal Cannula 4.0 06/15/16 19:27 36.6 114 20 104/69 92 Nasal Cannula 4.0 06/15/16 16:59 113 111/76 06/15/16 16:00 95 Nasal Cannula 4.0 06/15/16 15:20 36.4 102 22 111/76 96 Nasal Cannula 4.0 06/15/16 14:20 103 20 117/80 95 Nasal Cannula 4.0 06/15/16 13:46 122 114/64 06/15/16 13:37 122 114/64 95 Nasal Cannula 4.0 06/15/16 13:00 110 122/83 94 Nasal Cannula 4.0 06/15/16 12:30 95 Nasal Cannula 4.0 06/15/16 12:30 36.4 118 16 124/64 92 Nasal Cannula 4.0 06/15/16 12:08 114 20 130/82 06/15/16 12:08 117 20 94 06/15/16 12:05 140/68 06/15/16 12:03 112 24 06/15/16 12:03 106 24 89 06/15/16 12:00 138/85 06/15/16 11:58 110 21 94 06/15/16 11:58 117 21 06/15/16 11:57 110 20 94 06/15/16 11:57 36.4 115 20 06/15/16 11:55 133/66 06/15/16 11:52 111 21 95 06/15/16 11:52 120 21 06/15/16 11:50 149/86 06/15/16 11:47 111 19 06/15/16 11:47 112 19 95 06/15/16 11:45 146/101 06/15/16 11:42 113 20 89 06/15/16 11:42 119 20 06/15/16 11:40 145/98 06/15/16 11:40 Nasal Cannula 4 06/15/16 11:37 115 20 06/15/16 11:37 104 20 95 06/15/16 11:35 155/91 06/15/16 11:32 130 23 91 06/15/16 11:32 122 23 06/15/16 11:30 145/100 06/15/16 11:27 120 23 06/15/16 11:27 124 23 91 06/15/16 11:25 171/106 06/15/16 11:22 113 21 93 06/15/16 11:22 116 21 06/15/16 11:18 149/115 06/15/16 11:17 114 16 06/15/16 11:17 16 06/15/16 11:12 36.2 114 20 149/115 92 Mask 10 General Appearance: WD/WN, no apparent distress Respiratory/Chest: normal breath sounds, no respiratory distress Cardiovascular: regular rate, rhythm Abdomen: non tender, soft, + abnormal bowel sounds (hypoactive), + distended ( mild) Incision(s): clean, dry, intact Laboratory Results: Results Past 24 Hours Test 06/15/16 17:00 06/16/16 05:03 Range/Units White Blood Count 11.57 11.39 4.8-10.8 K/uL Red Blood Count 4.20 3.71 4.7-6.1 M/uL Hemoglobin 13.3 11.5 14.0-18.0 g/dL Hematocrit 37.3 32.6 42-52 % Mean Corpuscular Volume 88.8 87.9 80-100 fL Mean Corpuscular Hemoglobin 31.7 31.0 25-34 pg Mean Corpuscular Hemoglobin Concent 35.7 35.3 32-36 g/dl Platelet Count 200 200 130-400 K/uL Mean Platelet Volume 9.8 9.5 7.4-10.4 fL Neutrophils (%) (Auto) 93.9 88.6 % Lymphocytes (%) (Auto) 3.0 4.5 % Monocytes (%) (Auto) 2.6 6.4 % Eosinophils (%) (Auto) 0.0 0.0 % Basophils (%) (Auto) 0.1 0.1 % Neutrophils # (Auto) 10.86 10.09 1.4-6.5 K/uL Lymphocytes # (Auto) 0.35 0.51 1.2-3.4 K/uL Monocytes # (Auto) 0.30 0.73 0.11-0.59 K/uL Eosinophils # (Auto) 0.00 0.00 0-0.5 K/uL Basophils # (Auto) 0.01 0.01 0-0.2 K/uL RDW Standard Deviation 49.3 48.5 36.4-46.3 fL RDW Coefficient of Variation 15.2 15.0 11.5-14.5 % Immature Granulocyte % (Auto) 0.4 0.4 % Immature Granulocyte # (Auto) 0.05 0.05 0.00-0.02 K/uL Sodium Level 140 138 136-145 mmol/L Potassium Level 4.0 3.8 3.5-5.1 mmol/L Chloride Level 104 103 98-107 mmol/L Carbon Dioxide Level 27 25 21-32 mmol/L Anion Gap 9.0 10.0 3-11 mmol/L Blood Urea Nitrogen 32 25 7-18 mg/dl Creatinine 1.30 1.10 0.60-1.40 mg/dl Est Creatinine Clear Calc Drug Dose 42.1 49.8 ml/min Estimated GFR () 57.3 70.1 Estimated GFR (Non- 49.4 60.5 BUN/Creatinine Ratio 24.6 23.1 10-20 Random Glucose 126 137 70-99 mg/dl Calcium Level 8.0 7.5 8.5-10.1 mg/dl Magnesium Level 2.5 2.3 1.8-2.4 mg/dl Assessment & Plan s/p exp lap and lysis of adhesions for SBO - POD#1. Doing well. Will continue clear liquids. OK to discontinue barron. Increase activity.
--- NOTE | 2016-06-16 17:35 | Progress Note ---
Subjective Date of Service: Jun 16, 2016. Subjective Pt evaluation today including: conversation w/ patient, conversation w/ family , physical exam, chart review, lab review, review of inpatient medication list feeling better abdominal pain controlled except was somewhat bad when getting out of bed but better now and doesn't really want anything stronger for pain no cp no sob feeling better each day pleased with care no BM yet tolerating liquids Problem List Medical Problems: (1) Acute kidney injury Status: Acute (2) Dehydration Status: Acute (3) Nausea Status: Acute (4) Vomiting Status: Acute Review of Systems Respiratory: No shortness of breath Cardiac: No chest pain Abdomen: + constipation, + see HPI, No diarrhea, No nausea, No vomiting ros otherwise negative except for as above Objective Vital Signs Date Time Temp Pulse Resp B/P Pulse Ox O2 Delivery O2 Flow Rate FiO2 06/16/16 15:10 36.4 111 18 109/76 91 Room Air 06/16/16 13:47 116 128/76 06/16/16 12:06 Room Air 06/16/16 10:33 36.8 68 18 90/65 91 Room Air 06/16/16 08:00 Room Air 06/16/16 07:04 36.4 117 17 120/77 93 Nasal Cannula 4.0 06/16/16 04:22 102 107/70 06/16/16 04:00 36.5 107 110/73 93 06/16/16 04:00 93 Nasal Cannula 4.0 06/16/16 00:00 94 Nasal Cannula 4.0 06/15/16 23:52 105 106/70 06/15/16 23:23 36.4 106 19 117/65 94 Nasal Cannula 4.0 06/15/16 20:07 121 106/68 06/15/16 20:06 121 106/68 06/15/16 20:00 92 Nasal Cannula 4.0 06/15/16 19:27 36.6 114 20 104/69 92 Nasal Cannula 4.0 Physical Exam General Appearance: no apparent distress Eyes: EOMI ENT: hearing grossly normal Neck: trachea midline Respiratory/Chest: lungs clear, normal breath sounds (except maybe sl decreased bibasilar), no respiratory distress, no accessory muscle use Cardiovascular: regular rate, rhythm Extremities: normal range of motion Neurologic/Psychiatric: slipper maker II-XII nml as tested, alert, normal mood/affect Skin: normal color, warm/dry Laboratory Results Last 24 Hours Test 06/16/16 05:03 White Blood Count 11.39 K/uL Red Blood Count 3.71 M/uL Hemoglobin 11.5 g/dL Hematocrit 32.6 % Mean Corpuscular Volume 87.9 fL Mean Corpuscular Hemoglobin 31.0 pg Mean Corpuscular Hemoglobin Concent 35.3 g/dl Platelet Count 200 K/uL Mean Platelet Volume 9.5 fL Neutrophils (%) (Auto) 88.6 % Lymphocytes (%) (Auto) 4.5 % Monocytes (%) (Auto) 6.4 % Eosinophils (%) (Auto) 0.0 % Basophils (%) (Auto) 0.1 % Neutrophils # (Auto) 10.09 K/uL Lymphocytes # (Auto) 0.51 K/uL Monocytes # (Auto) 0.73 K/uL Eosinophils # (Auto) 0.00 K/uL Basophils # (Auto) 0.01 K/uL RDW Standard Deviation 48.5 fL RDW Coefficient of Variation 15.0 % Immature Granulocyte % (Auto) 0.4 % Immature Granulocyte # (Auto) 0.05 K/uL Sodium Level 138 mmol/L Potassium Level 3.8 mmol/L Chloride Level 103 mmol/L Carbon Dioxide Level 25 mmol/L Anion Gap 10.0 mmol/L Blood Urea Nitrogen 25 mg/dl Creatinine 1.10 mg/dl Est Creatinine Clear Calc Drug Dose 49.8 ml/min Estimated GFR () 70.1 Estimated GFR (Non- 60.5 BUN/Creatinine Ratio 23.1 Random Glucose 137 mg/dl Calcium Level 7.5 mg/dl Magnesium Level 2.3 mg/dl Assessment and Plan afib RVR -likely incited by hypovolemia causing sinus tachy - now ongoing due to arrythmia -rate control better - and since taking PO will stop amio and switch to metoprolol (for now 25mg QID and titrate for rate control) -echo noted - see report - will want to continue beta blockers and maximize as possible due to LVH and septal hypertrophy -TSH Ok hypotension -improved -can reduce IVF hypokalemia -supplemented SBO -post op day #1. was adhesional despite no prior abdominal surgeries dehydration w ARF -appearing due to volume loss -reduce IVF, now #'s improving nicely aspiration pneumonia w hypoxia -due to vomiting -continue zosyn, improving, maybe switch to PO abx by tomorrow -lungs other than bibasilar diminished are normal elevated troponin -demand ischemia duet o tachycardia and LVH worsened by poor CrCl w ARF DVT proph -heparin SQ Hypercholesterolemia--hold atorvastatin 10 mg by mouth at bedtime. Restless leg syndrome--hold pramipexole 0.25 mg by mouth at bedtime. Parkinsonism--hold carbidopa/levodopa 25/100, 1 tablet by mouth 3 times a day. follow closely for any worsening in sx Vitamin B12 deficiency--hold supplement 1000 g by mouth every morning.
[2016-06-16] MEDS ORDERED: DIGOXIN 0.25 MG TAB PO ONE (18:15)
[2016-06-17] VITALS (7 sets, daily range): BP systolic 101–120; BP diastolic 54–74; PULSE 98–114; TEMP 36.3–36.8; O2SAT 91–97
[2016-06-17] MEDS: PIPERACILL/TAZOBAC IV 3.375 GM in DEXTROSE 5% 100ML 100 ML IV SCH (02:21)
[2016-06-17 06:12] LABS: BUN/CREATININE RATIO 20.7 (10-20); CALCIUM 7.6 mg/dl (8.5-10.1); CREATININE 0.99 mg/dl (0.60-1.40); POTASSIUM 3.8 mmol/L (3.5-5.1)
[2016-06-17] MEDS: LEValbuterol HFA 15GM INHALER INH SCH ×4 (06:33→18:04)
[2016-06-17] MEDS: IPRATROPIUM BROMIDE HFA INHALER INH SCH ×4 (06:34→18:04)
[2016-06-17] MEDS: METOPROLOL TARTRATE 25 MG TAB PO SCH ×4 (08:17→21:00)
[2016-06-17] MEDS: HEPARIN SOD 5000 UNIT/0.5 ML CARP SQ SCH ×2 (08:20→21:28)
--- NOTE | 2016-06-17 11:48 | Surgery Progress Note ---
Surgery Progress Note Date of Service Jun 17, 2016. Subjective + ambulating, + diet (tolerated clears, hungry), + feeling well, + pain controlled, No bowel movement, No nausea, No vomiting Objective Vital Signs: Date Time Temp Pulse Resp B/P Pulse Ox O2 Delivery O2 Flow Rate FiO2 06/17/16 08:00 Room Air 06/17/16 08:00 36.7 112 20 120/71 91 06/17/16 04:02 36.5 98 20 108/66 92 Room Air 06/17/16 04:00 92 Room Air 06/17/16 00:00 92 Room Air 06/16/16 23:16 36.4 112 16 103/59 92 Room Air 06/16/16 21:38 112 108/66 06/16/16 20:00 90 Room Air 06/16/16 19:35 36.6 108 18 105/65 90 Room Air 06/16/16 18:32 99 06/16/16 16:05 Room Air 06/16/16 15:10 36.4 111 18 109/76 91 Room Air 06/16/16 13:47 116 128/76 06/16/16 12:06 Room Air General Appearance: WD/WN, no apparent distress Respiratory/Chest: normal breath sounds, no respiratory distress Cardiovascular: regular rate, rhythm Abdomen: normal bowel sounds, non tender, soft, + distended (mild) Incision(s): clean, dry, intact Laboratory Results: Results Past 24 Hours Test 06/17/16 05:10 Range/Units Sodium Level 139 136-145 mmol/L Potassium Level 3.8 3.5-5.1 mmol/L Chloride Level 107 98-107 mmol/L Carbon Dioxide Level 25 21-32 mmol/L Anion Gap 7.0 3-11 mmol/L Blood Urea Nitrogen 21 7-18 mg/dl Creatinine 0.99 0.60-1.40 mg/dl Est Creatinine Clear Calc Drug Dose 61.2 ml/min Estimated GFR () 79.6 Estimated GFR (Non- 68.7 BUN/Creatinine Ratio 20.7 10-20 Random Glucose 85 70-99 mg/dl Calcium Level 7.6 8.5-10.1 mg/dl Assessment & Plan s/p exp lap and lysis of adhesions for SBO - POD#2. Doing well. Will advance to full liquids. Continue to increase activity as tolerated.
--- NOTE | 2016-06-17 14:54 | Progress Note ---
Subjective Date of Service: Jun 17, 2016. Subjective Pt evaluation today including: conversation w/ patient, conversation w/ family , physical exam, chart review, lab review, review of inpatient medication list feeling better overall belly feeling fairly good tolerating increase in diet no significant pain no nausae no vomiting ongoing no sx attributable to afib - no cp no sob no palpitations. discussed stroke risk - he was on xarelto a few years ago after PE from long car ride - tolerated well, will resume that. discussed waiting until more healed from current surgery given day to day stroke risk fairly low - but that there is small risk of stroke during that time - clinically outweighed by risk of causing bleeding from the surgery he just had. he / dtr understand -- will start xarelto somewhere in time frame of ~1wk as long as healing well coughing some breathing improving in hospital not doing well - is around the corner in 286-2 - would like to be with her if possible Problem List Medical Problems: (1) Acute kidney injury Status: Acute (2) Dehydration Status: Acute (3) Nausea Status: Acute (4) Vomiting Status: Acute Review of Systems ros otherwise negative except for as above Objective Vital Signs Date Time Temp Pulse Resp B/P Pulse Ox O2 Delivery O2 Flow Rate FiO2 06/17/16 12:00 36.4 112 22 114/74 93 06/17/16 12:00 Room Air 06/17/16 08:00 Room Air 06/17/16 08:00 36.7 112 20 120/71 91 06/17/16 04:02 36.5 98 20 108/66 92 Room Air 06/17/16 04:00 92 Room Air 06/17/16 00:00 92 Room Air 06/16/16 23:16 36.4 112 16 103/59 92 Room Air 06/16/16 21:38 112 108/66 06/16/16 20:00 90 Room Air 06/16/16 19:35 36.6 108 18 105/65 90 Room Air 06/16/16 18:32 99 06/16/16 16:05 Room Air 06/16/16 15:10 36.4 111 18 109/76 91 Room Air Physical Exam General Appearance: no apparent distress Eyes: EOMI ENT: hearing grossly normal Neck: trachea midline Respiratory/Chest: no respiratory distress, no accessory muscle use Cardiovascular: + irregularly irregular (still mildly tachycardic) Abdomen: non tender, soft Extremities: normal range of motion Neurologic/Psychiatric: physician office rep II-XII nml as tested, alert, normal mood/affect Skin: normal color, warm/dry Laboratory Results Last 24 Hours Test 06/17/16 05:10 Sodium Level 139 mmol/L Potassium Level 3.8 mmol/L Chloride Level 107 mmol/L Carbon Dioxide Level 25 mmol/L Anion Gap 7.0 mmol/L Blood Urea Nitrogen 21 mg/dl Creatinine 0.99 mg/dl Est Creatinine Clear Calc Drug Dose 61.2 ml/min Estimated GFR () 79.6 Estimated GFR (Non- 68.7 BUN/Creatinine Ratio 20.7 Random Glucose 85 mg/dl Calcium Level 7.6 mg/dl Assessment and Plan afib RVR -likely incited by hypovolemia causing sinus tachy - now ongoing due to arrythmia -rate control better - metoprolol 25mg QID for now - will try to transition to BID as rate control improves; for now still a little too fast -- and BP a little low to safely push beta taiwo further. had amio gtt for ~24hrs, gave digoxin x 1 yesterday' strongly suspect that as he gets further removed from the acute events that "drove" his afib, rate control is likely to be easier; and currently not severely tachycardic, absolutely asymptomatic -- therefore will give dig 0.25mg x1 again today and continue day-to-day reassessment before moving to another "permanent" med -echo noted - see report - will want to continue beta blockers and maximize as possible due to LVH and septal hypertrophy -TSH Ok -discussed anticoagulation - he will start xarelto in near future - just want to allow for more time healing from surgery hypotension -improved hypokalemia -supplemented SBO -post op day #1. was adhesional despite no prior abdominal surgeries dehydration w ARF -appearing due to volume loss -now basically normal (slightly prerenal) but off IVF, continue just with PO intake aspiration pneumonia w hypoxia -due to vomiting -improving nicely -stop zosyn, finish out course w augmentin - depending on ongoing improvmeent possibly can stop all abx at time of discharge elevated troponin -demand ischemia duet o tachycardia and LVH worsened by poor CrCl w ARF DVT proph -heparin SQ Hypercholesterolemia--resume atorvastatin 10 mg by mouth at bedtime. Restless leg syndrome--resume pramipexole 0.25 mg by mouth at bedtime. Parkinsonism--resume carbidopa/levodopa 25/100, 1 tablet by mouth 3 times a day. Vitamin B12 deficiency--resume supplement 1000 g by mouth every morning.
[2016-06-17] MEDS ORDERED: ACETAMINOPHEN 325 MG TAB PO PRN (15:00)
[2016-06-17] MEDS ORDERED: DIGOXIN 0.25 MG TAB PO ONE (15:30)
[2016-06-17] MEDS: AMOXICILLIN/CLAVULANATE TAB 875 MG TAB PO SCH (18:04)
[2016-06-17] MEDS: PRAMIPEXOLE DIHYDROCHLORIDE 0.25MG TAB PO SCH (21:30)
[2016-06-17] MEDS: ATORVASTATIN 10 MG TAB PO SCH (21:30)
[2016-06-17] MEDS: CARBIDOPA/LEVODOPA 25/100MG TAB PO SCH (21:30)
[2016-06-18] VITALS (8 sets, daily range): BP systolic 126–152; BP diastolic 72–91; PULSE 90–117; TEMP 36.4–36.8; O2SAT 91–93
[2016-06-18] MEDS: LEValbuterol HFA 15GM INHALER INH SCH ×3 (00:21→12:54)
[2016-06-18] MEDS: IPRATROPIUM BROMIDE HFA INHALER INH SCH ×3 (00:21→12:54)
[2016-06-18 07:14] LABS: BUN/CREATININE RATIO 18.6 (10-20); POTASSIUM 3.6 mmol/L (3.5-5.1)
--- NOTE | 2016-06-18 07:34 | Anesthesiology Progress Note ---
Anesthesia Post Op Note Date & Time Jun 18, 2016 at 07:33 Vital Signs Pain Intensity: 0.0 Vital Signs Past 12 Hours Date Time Temp Pulse Resp B/P Pulse Ox O2 Delivery O2 Flow Rate FiO2 06/18/16 04:05 Room Air 06/18/16 04:05 36.8 107 18 127/90 91 Room Air 06/18/16 00:05 36.4 105 18 142/86 93 Room Air 06/18/16 00:05 Room Air 06/17/16 20:13 36.8 99 18 101/54 91 Room Air 06/17/16 20:05 Room Air Notes Mental Status: alert / awake / arousable, participated in evaluation Pt Amnestic to Procedure: Yes Nausea / Vomiting: adequately controlled Pain: adequately controlled Airway Patency, RR, SpO2: stable & adequate BP & HR: stable & adequate Hydration State: stable & adequate Anesthetic Complications: no major complications apparent
--- NOTE | 2016-06-18 08:09 | SURGERY PROGRESS NOTE ---
DATE: 06/18/2016 SUBJECTIVE: Harsh is 3rd postoperative day, status post exploratory lap with lysis of adhesion. He is resting comfortably. He is having no distress. His last vitals showed a temperature of 36.8, a pulse is 107 in and out of atrial fibrillation, respirations 18, blood pressure 127/90, O2 sats 91 on room air. His I and O is slightly positive over the last few days. He has one bowel movement yesterday. Laboratory jorgensen, the PRP is pending this morning. His abdomen is soft. The incision is free of any inflammation, drainage or cellulitis. He is tolerating a diet. He would like something more to eat rather than soft food. At this point, from my point of view, he can be discharged. Instructions were given to follow up in our office in 1 week. No driving. No lift anything heavier than 10 pounds. He may need some diuresing, but I will leave that up to the medical service.
[2016-06-18] MEDS: CHOLECALCIFEROL 1000 INTER.UNIT TAB PO SCH (08:25)
[2016-06-18] MEDS: CYANOCOBALAMIN 500 MCG TAB (VIT B-12) PO SCH (08:25)
[2016-06-18] MEDS: AMOXICILLIN/CLAVULANATE TAB 875 MG TAB PO SCH ×2 (08:25→17:01)
[2016-06-18] MEDS: CARBIDOPA/LEVODOPA 25/100MG TAB PO SCH ×3 (08:25→20:34)
[2016-06-18] MEDS: HEPARIN SOD 5000 UNIT/0.5 ML CARP SQ SCH (08:27)
[2016-06-18] MEDS: METOPROLOL TARTRATE 50 MG TAB PO SCH ×4 (08:41→20:34)
[2016-06-18] MEDS: DIGOXIN IV 250 MCG in SYRINGE 9 ML IV SCH ×2 (14:16→20:32)
--- NOTE | 2016-06-18 14:49 | Medical Student: [facility] ---
Med Student Progress Note Date of Service Jun 18, 2016. Subjective Pt evaluation today including: conversation w/ patient, conversation w/ family , physical exam, lab review, review of studies Voiding: no voiding problems Patient is 86 year old male who presented to the ED on 06/13 with small bowel obstruction. Currently POD#3 of exploratory laparotomy with lysis adhesion being monitored for new-onset atrial fibrillation. No acute events overnight. Patient says he is up walking to the bathroom and "going alot." He denies chest pain, shortness of breath, palpitations, nausea, and vomiting. He does feel his heart beating fast or irregularly. He did not eat his breakfast or lunch because they "did not taste good." Hopes to leave soon because he is "comfortable." Daughter is present in room. is patient in next bed. Review of Systems Respiratory: No cough, No shortness of breath, No wheezing Cardiac: No palpitations Abdomen: No constipation, No nausea, No pain, No vomiting Male : No dysuria Objective Vital Signs Date Time Temp Pulse Resp B/P Pulse Ox O2 Delivery O2 Flow Rate FiO2 06/18/16 14:16 93 06/18/16 12:15 Room Air 06/18/16 11:31 36.5 104 16 134/80 92 Room Air 06/18/16 08:15 Room Air 06/18/16 07:43 36.6 117 16 134/72 93 Room Air 06/18/16 04:05 Room Air 06/18/16 04:05 36.8 107 18 127/90 91 Room Air 06/18/16 00:05 36.4 105 18 142/86 93 Room Air 06/18/16 00:05 Room Air 06/17/16 20:13 36.8 99 18 101/54 91 Room Air 06/17/16 20:05 Room Air 06/17/16 16:00 Room Air 06/17/16 15:35 36.3 114 18 116/69 97 Room Air 06/17/16 15:15 98 Physical Exam General Appearance: WD/WN, + mild distress Neck: no JVD Respiratory/Chest: chest non-tender, lungs clear, normal breath sounds, no respiratory distress, no accessory muscle use Cardiovascular: + systolic murmur (systolic ejection murmur loudest at RUSB), + irregularly irregular Abdomen: normal bowel sounds, non tender, soft, + pertinent finding (surgical incision site at midline of abdomen, clean and dry, srinivasa intact) Extremities: no pedal edema Neurologic/Psychiatric: alert, normal mood/affect, oriented x 3 Skin: normal color, warm/dry Laboratory Results Last 24 Hours Test 06/18/16 06:29 Sodium Level 142 mmol/L Potassium Level 3.6 mmol/L Chloride Level 108 mmol/L Carbon Dioxide Level 23 mmol/L Anion Gap 11.0 mmol/L Blood Urea Nitrogen 19 mg/dl Creatinine 1.00 mg/dl Est Creatinine Clear Calc Drug Dose 60.6 ml/min Estimated GFR () 78.6 Estimated GFR (Non- 67.8 BUN/Creatinine Ratio 18.6 Random Glucose 89 mg/dl Calcium Level 8.0 mg/dl Digoxin Level 0.4 ng/ml Assessment and Plan Assessment and Plan: ASSESSMENT 86 year old male POD#3 for exploratory laparotomy with lysis adhesion and new onset atrial fibrillation. Patient is unaware of fast and irregular heart beat. Atrial fibrillation is not currently under control on Metoprolol 25mg QID and oral digoxin. Patient is not happy about having to stay longer to address this issue. PLAN 1) Small bowel obstruction -POD#3 -Patient having bowel movements. -Will follow up with Dr. Cleveland for staple removal as outpatient. 2) Atrial fibrillation -New onset since 06/14 -Currently on Metoprolol 50mg QID. -Will start digoxin IV 0.25mcg x3 bags q6 hours. Will switch to oral digoxin once IV loading is complete. -Talk to Dr. Cleveland to discuss starting anticoagulant POD#3. 3) Aspiration pneumonia -Continue Augmentin 4) Acute renal failure and dehydration -Labs have normalized. -Continue oral fluid intaked. 5) Elevated troponins -Secondary is ischemic demand. -Troponin levels trended downward on 06/14. 6) Hypercholesterolemia -Continue atorvastatin 7) Restless leg syndrome -Continue pramiperole 8) Parkinsonism -Continue Senimet 9) Vitamin B12 deficiency -Continue 1000 mcg daily
--- NOTE | 2016-06-18 19:09 | Progress Note ---
Subjective Date of Service: Jun 18, 2016. Subjective Pt evaluation today including: conversation w/ patient, conversation w/ family (daughter, at bedside), physical exam, chart review, lab review, conversation w/ center lead consultant (gen surgery), review of inpatient medication list Pain: denies any abd pain or chest pain PO Intake: doesn't like the hospital food; but tolerating what he eats Voiding: no voiding problems tele overnight with a. fib with RVR, rates over 100 consistently he does not feel the a. fib denies orthopnea, MIRELES, sob at rest, palpitations, chest pain anxious to "get out of here" reports multiple bowel movements Problem List Medical Problems: (1) Acute kidney injury Status: Acute (2) Dehydration Status: Acute (3) Nausea Status: Acute (4) Vomiting Status: Acute Review of Systems Constitutional: No fever Respiratory: No dyspnea on exertion, No shortness of breath Cardiac: No chest pain, No orthopnea Abdomen: No GI bleeding, No diarrhea, No nausea, No pain, No vomiting Objective Vital Signs Date Time Temp Pulse Resp B/P Pulse Ox O2 Delivery O2 Flow Rate FiO2 06/18/16 16:15 36.4 90 16 126/81 92 Room Air 06/18/16 16:00 92 Room Air 06/18/16 14:16 93 06/18/16 12:15 Room Air 06/18/16 11:31 36.5 104 16 134/80 92 Room Air 06/18/16 08:15 Room Air 06/18/16 07:43 36.6 117 16 134/72 93 Room Air 06/18/16 04:05 Room Air 06/18/16 04:05 36.8 107 18 127/90 91 Room Air 06/18/16 00:05 36.4 105 18 142/86 93 Room Air 06/18/16 00:05 Room Air 06/17/16 20:13 36.8 99 18 101/54 91 Room Air 06/17/16 20:05 Room Air Physical Exam General Appearance: no apparent distress ENT: pharynx normal Neck: no JVD Respiratory/Chest: lungs clear, no respiratory distress, no accessory muscle use Cardiovascular: + tachycardia, + systolic murmur (1-2/6 holosystolic RUSB), + irregularly irregular Abdomen: normal bowel sounds, non tender, soft, no organomegaly Extremities: no pedal edema Neurologic/Psychiatric: alert, oriented x 3 Skin: + pertinent finding (midline incision clean with intact srinivasa ) Laboratory Results Last 24 Hours Test 06/18/16 06:29 Sodium Level 142 mmol/L Potassium Level 3.6 mmol/L Chloride Level 108 mmol/L Carbon Dioxide Level 23 mmol/L Anion Gap 11.0 mmol/L Blood Urea Nitrogen 19 mg/dl Creatinine 1.00 mg/dl Est Creatinine Clear Calc Drug Dose 60.6 ml/min Estimated GFR () 78.6 Estimated GFR (Non- 67.8 BUN/Creatinine Ratio 18.6 Random Glucose 89 mg/dl Calcium Level 8.0 mg/dl Digoxin Level 0.4 ng/ml Assessment and Plan 86yo male with: 1. SBO, POD #4 s/p ex lap with lysis of large adhesion. Doing well from surgical standpoint. Eating, passing bowel movements, incision clean. 2. a. fib with RVR - NEW - rates not controlled despite BB and addition of oral digoxin yesterday. Increased metoprolol to 50mg qid today. Despite such resting heart rates have been >100. Will dig load with IV dig 0.25mg IV q6h x 3 doses. Discussed anticoagulation with him - he is agreeable. Discussed the anticoagulation with Dr. Cleveland and it is ok to start at this point post-operatively. Start xarelto 20mg daily. 3. hypotension - 2nd to a. fib with RVR in the setting of hypovolemia - resolved. 4. acute renal failure - resolved. 5. hypokalemia - resolved. 6. aspiration pneumonia - resolved clinically. Finish augmentin. Today is day # 7 of abx therapy. 7. +troponin - thought to be myocardial demand ischemia in the setting of acute renal failure, SBO, etc. No ischemic symptoms at this time. 8. DVT proph - xarelto. 9. Hypercholesterolemia - atorvastatin 10 mg by mouth at bedtime. 10. Restless leg syndrome - pramipexole 0.25 mg by mouth at bedtime. 11. Parkinsonism - carbidopa/levodopa 25/100, 1 tablet by mouth 3 times a day. family updated PT consult to ensure readiness for discharge home Continued [facility] [place] stay due to: multiple IV medications needed, other (a. fib with RVR)
[2016-06-18] MEDS: RIVAROXABAN 10 MG TAB PO SCH (20:33)
[2016-06-18] MEDS: PRAMIPEXOLE DIHYDROCHLORIDE 0.25MG TAB PO SCH (20:34)
[2016-06-18] MEDS: ATORVASTATIN 10 MG TAB PO SCH (20:34)
[2016-06-19 00:04] VITALS: BP 128/74; PULSE 104; TEMP 36.3; O2SAT 91
[2016-06-19] MEDS: DIGOXIN IV 250 MCG in SYRINGE 9 ML IV SCH (02:06)
[2016-06-19 04:07] VITALS: BP 140/80; PULSE 112; TEMP 36.5; O2SAT 94
[2016-06-19 06:58] LABS: BUN/CREATININE RATIO 16.7 (10-20); CALCIUM 7.8 mg/dl (8.5-10.1); CREATININE 0.99 mg/dl (0.60-1.40); MAGNESIUM 1.6 mg/dl (1.8-2.4); POTASSIUM 3.6 mmol/L (3.5-5.1)
--- NOTE | 2016-06-19 07:04 | SURGERY PROGRESS NOTE ---
DATE: 06/19/2016 Harsh continues to do well. He said he was not too hungry yesterday. He is 4th postoperative day, status post exploratory lap, lysis of adhesive band. His last vitals showed a temperature of 36.5. He is still in and out of atrial fibrillation, respirations 18, blood pressure 140/80, O2 sats 94 on room air. I and O, he said he has continuous bowel movements, just liquid . None has been recorded here on flowsheet. The abdomen is completely benign. He is being titrated as far as Coumadin and I will leave it up to the medical service as far as discharge. SATISH
[2016-06-19] MEDS: CARBIDOPA/LEVODOPA 25/100MG TAB PO SCH ×3 (07:42→21:07)
[2016-06-19] MEDS: METOPROLOL TARTRATE 50 MG TAB PO SCH ×4 (07:42→21:07)
[2016-06-19] MEDS: CHOLECALCIFEROL 1000 INTER.UNIT TAB PO SCH (07:42)
[2016-06-19] MEDS: AMOXICILLIN/CLAVULANATE TAB 875 MG TAB PO SCH ×2 (07:42→16:59)
[2016-06-19] MEDS: CYANOCOBALAMIN 500 MCG TAB (VIT B-12) PO SCH (07:43)
[2016-06-19 08:12] VITALS: BP 120/74; PULSE 98; TEMP 36.4; O2SAT 94
[2016-06-19 12:08] VITALS: BP 113/72; PULSE 88; TEMP 36; O2SAT 95
[2016-06-19] MEDS: MAGNESIUM SULFATE 1GM / D5W 1 GM in PREMIXED IN D5W 100 ML IV SCH ×2 (12:48→13:52)
[2016-06-19] MEDS ORDERED: SODIUM CHLOR 0.45% + 20MEQ KCL 1,000 ML IV SCH (13:00)
[2016-06-19 15:25] VITALS: BP 119/58; PULSE 89; TEMP 36.6; O2SAT 99
[2016-06-19] MEDS: DIGOXIN 0.25 MG TAB PO SCH (16:58)
[2016-06-19] MEDS: RIVAROXABAN 10 MG TAB PO SCH (16:59)
[2016-06-19] MEDS: LACTOBACILLUS ACIDOPHILUS (FLORANEX) TAB PO SCH (17:00)
[2016-06-19 19:47] VITALS: BP 126/79; PULSE 95; TEMP 36.3; O2SAT 93
[2016-06-19] MEDS: PRAMIPEXOLE DIHYDROCHLORIDE 0.25MG TAB PO SCH (21:07)
[2016-06-19] MEDS: ATORVASTATIN 10 MG TAB PO SCH (21:08)
--- NOTE | 2016-06-19 21:54 | Progress Note ---
Subjective Date of Service: Jun 19, 2016. Subjective Pt evaluation today including: conversation w/ patient, conversation w/ family (, daughter at bedside), physical exam, chart review, lab review, review of inpatient medication list Pain: denied abd pain PO Intake: very poor Voiding: no voiding problems "I have no appetite" has had copious amounts of liquid, mucousy stools (at least 3-4 this AM already) no nausea or emesis denies abd pain denies dyspnea, palpitations, chest pain anxious to get out of here Problem List Medical Problems: (1) Acute kidney injury Status: Acute (2) Dehydration Status: Acute (3) Nausea Status: Acute (4) Vomiting Status: Acute Review of Systems Constitutional: No fever Respiratory: No cough, No dyspnea on exertion, No shortness of breath Cardiac: No chest pain, No orthopnea Abdomen: No pain Objective Vital Signs Date Time Temp Pulse Resp B/P Pulse Ox O2 Delivery O2 Flow Rate FiO2 06/19/16 20:02 Room Air 06/19/16 19:47 36.3 95 20 126/79 93 Room Air 06/19/16 16:58 83 06/19/16 16:00 Room Air 06/19/16 15:25 36.6 89 20 119/58 99 Room Air 06/19/16 12:08 36.0 88 16 113/72 95 06/19/16 12:00 Room Air 06/19/16 08:15 Room Air 06/19/16 08:12 36.4 98 18 120/74 94 06/19/16 04:07 36.5 112 18 140/80 94 Room Air 06/19/16 04:05 Room Air 06/19/16 02:06 87 06/19/16 00:05 Room Air 06/19/16 00:04 36.3 104 20 128/74 91 Room Air Physical Exam General Appearance: no apparent distress ENT: + pertinent finding (MM slightly dry ) Neck: no JVD Respiratory/Chest: lungs clear, no respiratory distress, no accessory muscle use Cardiovascular: no gallop, + systolic murmur (2/6 RUSB), + irregularly irregular Abdomen: normal bowel sounds, non tender, soft, no organomegaly Extremities: no pedal edema Neurologic/Psychiatric: alert, oriented x 3 Skin: + pertinent finding (midline abdominal wall incision clean; srinivasa intact ) Laboratory Results Last 24 Hours Test 06/19/16 06:20 Sodium Level 140 mmol/L Potassium Level 3.6 mmol/L Chloride Level 109 mmol/L Carbon Dioxide Level 19 mmol/L Anion Gap 12.0 mmol/L Blood Urea Nitrogen 17 mg/dl Creatinine 0.99 mg/dl Est Creatinine Clear Calc Drug Dose 60.1 ml/min Estimated GFR () 79.6 Estimated GFR (Non- 68.7 BUN/Creatinine Ratio 16.7 Random Glucose 87 mg/dl Calcium Level 7.8 mg/dl Magnesium Level 1.6 mg/dl Assessment and Plan 86yo male with: 1. SBO, POD #5 s/p ex lap with lysis of large adhesion. Doing well from surgical standpoint. 2. a. fib with RVR - NEW - rates modestly better with QID metoprolol and digoxin loading yesterday. Continue both. Continue xarelto for anticoagulation. 3. hypotension - 2nd to a. fib with RVR in the setting of hypovolemia - resolved. 4. acute renal failure - resolved. 5. hypokalemia - resolved. 6. aspiration pneumonia - resolved clinically. Has finished abx course - d/c augmentin. 7. +troponin - thought to be myocardial demand ischemia in the setting of acute renal failure, SBO, etc. No ischemic symptoms at this time. 8. DVT proph - xarelto. 9. Hypercholesterolemia - atorvastatin 10 mg by mouth at bedtime. 10. Restless leg syndrome - pramipexole 0.25 mg by mouth at bedtime. 11. Parkinsonism - carbidopa/levodopa 25/100, 1 tablet by mouth 3 times a day. 12. diarrhea - check c. diff, add lactinex. Stopping abx will help this. 13. anorexia - 2nd to #12? check u/a as well to r/o UTI as he had a barron in a few days ago. 14. hypomagnesemia - 2nd to diarrhea - mag sulfate 2 grams IV x 1; repeat level AM. cont PT, OT family updated discharge hinges on appetite, a. fib rate control Continued [facility] stay due to: multiple IV medications needed, other (a. fib with RVR) Discharge planning: home
[2016-06-20] VITALS (8 sets, daily range): BP systolic 86–112; BP diastolic 56–69; PULSE 70–90; TEMP 36.3–37; O2SAT 92–95
[2016-06-20 06:11] LABS: HEMATOCRIT 40.8 % (42-52); MEAN CELL VOLUME 87.2 fL (80-100); MEAN CORPUSCULAR HEMOGLOBIN 30.8 pg (25-34); MEAN CORPUSCULAR HGB CONC 35.3 g/dl (32-36); MEAN PLATELET VOLUME 9.6 fL (7.4-10.4); PLATELET COUNT 370 K/uL (130-400); RED BLOOD COUNT 4.68 M/uL (4.7-6.1); WHITE BLOOD COUNT 11.24 K/uL (4.8-10.8)
[2016-06-20 06:36] LABS: BLOOD UREA NITROGEN 19 mg/dl (7-18); BUN/CREATININE RATIO 15.9 (10-20); CARBON DIOXIDE 17 mmol/L (21-32); CHLORIDE 107 mmol/L (98-107); GLUCOSE 91 mg/dl (70-99); SODIUM 136 mmol/L (136-145)
[2016-06-20 07:05] LABS: MAGNESIUM 2.1 mg/dl (1.8-2.4)
[2016-06-20] MEDS: ONDANSETRON INJ 2 MG/ML 2 ML VIAL IV PRN (07:42)
--- NOTE | 2016-06-20 08:23 | DIAGNOSTIC IMAGING REPORT ---
PA CHEST WITH ABDOMINAL SERIES CLINICAL HISTORY: Nausea and vomiting. Small bowel obstruction. FINDINGS: A PA chest radiograph is compared to study dated 06/12/2016. Correlation is made with chest CT dated 02/16/2013. The cardiomediastinal silhouette is unremarkable. There is atherosclerotic calcification of the thoracic aorta. Emphysema and chronic interstitial thickening are similar to previous. There is a small left pleural effusion with left basilar airspace consolidation. No pneumothorax is seen. The skeletal structures are osteopenic. The bony thorax is grossly intact. Degenerative change and mild scoliosis are noted in the thoracic spine. Supine and erect abdominal radiographs are compared to study dated 06/13/2016 and correlated with abdominal CT dated 06/12/2016. Midline skin clips are noted. There is persistent gaseous distention of the small bowel with loops measuring up to 4.5 cm diameter. There is also mild gaseous distention of the colon. Scattered air-fluid levels are noted on the upright view. Phlebolith are observed in the pelvis. No evidence of intraperitoneal free air is seen on the upright view. There is moderate lumbar sacral spondylosis. The bony pelvis appears intact. IMPRESSION: 1. Emphysema. 2. There is a small left pleural effusion and left basilar airspace consolidation. This was also seen on the 06/12/2016 examination. Correlate clinically for evidence of aspiration pneumonitis/pneumonia. 3. Midline skin clips are now present in the abdomen. 4. There is persistent gaseous distention of the small bowel loops. There is also mild gaseous distention of the colon. Given the evidence of recent surgery the appearance is most typical for a postoperative ileus. Recurrent small bowel obstruction is considered less likely. Clinical correlation will be required. 5. Additional findings as above. Electronically signed by: Konstantin Polanco M.D. 06/20/2016 8:21 AM Dictated Date/Time: 06/20/2016 8:17 AM
[2016-06-20] MEDS: CHOLECALCIFEROL 1000 INTER.UNIT TAB PO SCH (08:45)
[2016-06-20] MEDS: CYANOCOBALAMIN 500 MCG TAB (VIT B-12) PO SCH (08:45)
[2016-06-20] MEDS: CARBIDOPA/LEVODOPA 25/100MG TAB PO SCH ×3 (08:45→21:13)
[2016-06-20] MEDS: LACTOBACILLUS ACIDOPHILUS (FLORANEX) TAB PO SCH ×3 (08:46→16:43)
[2016-06-20] MEDS: METOPROLOL TARTRATE 50 MG TAB PO SCH ×2 (09:00→13:53)
[2016-06-20] MEDS ORDERED: SODIUM CHLORIDE 0.9% 1000ML 1,000 ML IV SCH (09:30)
--- NOTE | 2016-06-20 10:31 | Surgery Progress Note ---
Surgery Progress Note Date of Service Jun 20, 2016. Subjective Post OP Day: 5 + bowel movement (multiple loose), + diet (no appetite), + pain controlled, + vomiting (x2 this AM, small amounts) Objective Vital Signs: Date Time Temp Pulse Resp B/P Pulse Ox O2 Delivery O2 Flow Rate FiO2 06/20/16 08:04 36.3 82 16 86/59 95 Room Air 06/20/16 08:00 Room Air 06/20/16 04:05 Room Air 06/20/16 04:00 36.3 89 20 94/60 95 Room Air 06/20/16 00:25 36.7 90 16 95/59 93 Room Air 06/20/16 00:05 Room Air 06/19/16 20:02 Room Air 06/19/16 19:47 36.3 95 20 126/79 93 Room Air 06/19/16 16:58 83 06/19/16 16:00 Room Air 06/19/16 15:25 36.6 89 20 119/58 99 Room Air 06/19/16 12:08 36.0 88 16 113/72 95 06/19/16 12:00 Room Air Abdomen: soft, + distended (slighlty) Incision(s): clean, dry Laboratory Results: Results Past 24 Hours Test 06/20/16 05:55 06/20/16 06:43 Range/Units White Blood Count 11.24 4.8-10.8 K/uL Red Blood Count 4.68 4.7-6.1 M/uL Hemoglobin 14.4 14.0-18.0 g/dL Hematocrit 40.8 42-52 % Mean Corpuscular Volume 87.2 80-100 fL Mean Corpuscular Hemoglobin 30.8 25-34 pg Mean Corpuscular Hemoglobin Concent 35.3 32-36 g/dl RDW Standard Deviation 47.4 36.4-46.3 fL RDW Coefficient of Variation 15.0 11.5-14.5 % Platelet Count 370 130-400 K/uL Mean Platelet Volume 9.6 7.4-10.4 fL Sodium Level 136 136-145 mmol/L Potassium Level 4.0 3.5-5.1 mmol/L Chloride Level 107 98-107 mmol/L Carbon Dioxide Level 17 21-32 mmol/L Anion Gap 12.0 3-11 mmol/L Blood Urea Nitrogen 19 7-18 mg/dl Creatinine 1.20 0.60-1.40 mg/dl Est Creatinine Clear Calc Drug Dose 45.6 ml/min Estimated GFR () 63.1 Estimated GFR (Non- 54.4 BUN/Creatinine Ratio 15.9 10-20 Random Glucose 91 70-99 mg/dl Calcium Level 8.3 8.5-10.1 mg/dl Magnesium Level 2.1 1.8-2.4 mg/dl Microbiology Results 06/19/16 C.difficile Toxin B Gene (PCR) - Final, Complete No C. difficile toxin B gene detected Assessment & Plan s/p ex lap, lysis adhesive band XR suggest ileus and is consistent with clinical picture would go back to clears sparingly, consider NG/NPO if he has further vomiting seen this morning with Dr. Cleveland, will review XR with him
[2016-06-20] MEDS: D5NSS + 20MEQ KCL 1,000 ML IV SCH (12:20)
[2016-06-20 12:32] LABS: URINE APPEARANCE CLEAR (CLEAR); URINE BILIRUBIN NEG (NEG); URINE COLOR YELLOW; URINE NITRITE NEG (NEG); URINE SPECIFIC GRAVITY 1.019 (1.000-1.030); UROBILINOGEN NEG (NEG)
[2016-06-20 12:36] LABS: MANUAL MICROSCOPIC REQUIRED? NO; REVIEW REQ? NO
--- NOTE | 2016-06-20 13:02 | Medical Student: [facility] ---
Med Student Progress Note Date of Service Jun 20, 2016. Subjective Pt evaluation today including: conversation w/ patient, conversation w/ family , physical exam, lab review, review of studies 86 year old man POD#5 for exploratory laparotomy for small bowel obstruction. Complains of diarrhea last night. Describes stool as loose and yellow with small pieces of "solid." When he goes there is a sense of "pressure" being released. Denies pain or rectal bleeding. He is very tired of having to get up to use the bathroom and then clean himself and change his underwear. He says he is going every "20 minutes" but his daughter commented she has not seen him get up to use the bathroom since she arrived at 4 hours ago. Patient has also retched and vomited twice this morning. He was take for abdominal xray after second episode. Daughter says her father has not eaten anything since his surgery. Patient denies chest pain, palpitations, shortness of breath, and abdominal pain. Still very anxious to get out of here. Review of Systems Constitutional: No fever Respiratory: No cough, No shortness of breath, No sputum, No wheezing Cardiac: No chest pain, No palpitations Abdomen: + diarrhea (copious loose yellow stool), + nausea, + vomiting, No pain Objective Vital Signs Date Time Temp Pulse Resp B/P Pulse Ox O2 Delivery O2 Flow Rate FiO2 06/20/16 11:38 36.3 75 16 105/69 93 Room Air 06/20/16 08:04 36.3 82 16 86/59 95 Room Air 06/20/16 08:00 Room Air 06/20/16 04:05 Room Air 06/20/16 04:00 36.3 89 20 94/60 95 Room Air 06/20/16 00:25 36.7 90 16 95/59 93 Room Air 06/20/16 00:05 Room Air 06/19/16 20:02 Room Air 06/19/16 19:47 36.3 95 20 126/79 93 Room Air 06/19/16 16:58 83 06/19/16 16:00 Room Air 06/19/16 15:25 36.6 89 20 119/58 99 Room Air Physical Exam General Appearance: + mild distress, + obese ENT: hearing grossly normal Neck: no JVD Respiratory/Chest: chest non-tender, lungs clear, normal breath sounds, no respiratory distress, no accessory muscle use Cardiovascular: regular rate, rhythm, + systolic murmur (2/6 RYLEE at RUSB) Abdomen: normal bowel sounds, non tender, soft, + pertinent finding (surgical incision clean and dry) Extremities: + pedal edema (+1 bilterally) Neurologic/Psychiatric: alert, normal mood/affect, oriented x 3 Skin: normal color, warm/dry, no rash Laboratory Results Last 24 Hours Test 06/20/16 05:55 06/20/16 06:43 06/20/16 11:12 06/20/16 12:20 White Blood Count 11.24 K/uL Red Blood Count 4.68 M/uL Hemoglobin 14.4 g/dL Hematocrit 40.8 % Mean Corpuscular Volume 87.2 fL Mean Corpuscular Hemoglobin 30.8 pg Mean Corpuscular Hemoglobin Concent 35.3 g/dl RDW Standard Deviation 47.4 fL RDW Coefficient of Variation 15.0 % Platelet Count 370 K/uL Mean Platelet Volume 9.6 fL Sodium Level 136 mmol/L Potassium Level mmol/L 4.0 mmol/L Chloride Level 107 mmol/L Carbon Dioxide Level 17 mmol/L Anion Gap 12.0 mmol/L Blood Urea Nitrogen 19 mg/dl Creatinine 1.20 mg/dl Est Creatinine Clear Calc Drug Dose 45.6 ml/min Estimated GFR () 63.1 Estimated GFR (Non- 54.4 BUN/Creatinine Ratio 15.9 Random Glucose 91 mg/dl Calcium Level 8.3 mg/dl Magnesium Level mg/dl 2.1 mg/dl Phosphorus Level 3.0 mg/dl Digoxin Level 1.0 ng/ml Urine Color YELLOW Urine Appearance CLEAR Urine pH 5.0 Urine Specific [place] 1.019 Urine Protein NEG Urine Glucose (UA) NEG Urine Ketones 1+ Urine Occult Blood NEG Urine Nitrite NEG Urine Bilirubin NEG Urine Urobilinogen NEG Urine Leukocyte Esterase NEG Assessment and Plan Assessment and Plan: ASSESSMENT 86 year old man POD#5 for exploratory laparotomy for small bowel obstruction. Complaints of loose yellow stools overnight and vomiting this morning. C. diff testing was negative. Abdominal xray showed mild gaseous distention of small bowel and colon suggestive of ileus. Patient converted into normal sinus rhythm overnight on the monitor. Confirmed on EKG today. Patient thinks he would get better if he could "just get out of here." Daughter argues that he has nowhere to be and his is in the hospital bed beside him. PLAN 1) SBO POD#5 -general surgery continuing to monitor 2) Atrial fibrillation -Currently in NSR -Decrease metoprolol to 25mg BID. -Continue digoxin. -Check digoxin level -Xarelto for anticoagulation. 3) ARF -resolved 4) Hypokalemia -resolved 5) Aspiration pneumonia -Antibiotics stopped due to diarrhea, clinically resolved 6) positive troponins -secondary to demand ischemia -no symptoms currently 7) DVT -Xarelto 8) Hypercholesterolemia -atorvastatin 10mg 9) Parkinsonism -Carbidopa/levadopa 25/100 10) Restless leg syndrome -Pramipexole 0.25mg 11) Diarrhea -Abdominal xray showed mild gaseous distention of small bowel and colon suggestive of ileus. -C diff testing negative. -General surgery suggests clear liquid diet and bowel rest to see if it resolves. -Augmentin d/c yesterday. -Check UA for possible UTI. 12) Anorexia -Clear fluid diet. 13) Hypomagesnium secondary to diarrhea -resolved Continued [facility] stay due to: multiple IV medications needed, other (diarrhea s/ p small bowel obstruction) Discharge planning: home
[2016-06-20 15:41] LABS: CALCIUM 8.8 mg/dl (8.5-10.1)
[2016-06-20] MEDS: DIGOXIN 0.25 MG TAB PO SCH (16:43)
[2016-06-20] MEDS: RIVAROXABAN 10 MG TAB PO SCH (16:43)
[2016-06-20] MEDS: METOPROLOL TARTRATE 25 MG TAB PO SCH (21:13)
[2016-06-20] MEDS: PRAMIPEXOLE DIHYDROCHLORIDE 0.25MG TAB PO SCH (21:13)
[2016-06-20] MEDS: ATORVASTATIN 10 MG TAB PO SCH (21:13)
[2016-06-21] VITALS (7 sets, daily range): BP systolic 104–122; BP diastolic 63–74; PULSE 65–88; TEMP 36.4–36.9; O2SAT 93–97
[2016-06-21] MEDS: D5NSS + 20MEQ KCL 1,000 ML IV SCH ×2 (00:27→12:39)
--- NOTE | 2016-06-21 08:12 | Progress Note ---
Subjective Date of Service: late entry for visit Jun 20, 2016. Subjective Pt evaluation today including: conversation w/ patient, conversation w/ family (, daughter at bedside), physical exam, chart review, lab review, review of studies (abd x-rays), conversation w/ cosmetic consultant (gen surg), review of inpatient medication list Pain: denies abd pain PO Intake: poor; vomited this AM Voiding: no voiding problems feels poorly today no appetite, copious stools, emesis, nausea but no abd pain converted to NSR this am from a. fib Problem List Medical Problems: (1) Acute kidney injury Status: Acute (2) Dehydration Status: Acute (3) Nausea Status: Acute (4) Vomiting Status: Acute Review of Systems Constitutional: No fever Respiratory: No shortness of breath Cardiac: No chest pain Abdomen: No pain Objective Vital Signs Date Time Temp Pulse Resp B/P Pulse Ox O2 Delivery O2 Flow Rate FiO2 06/21/16 04:40 36.5 74 20 122/74 93 Room Air 06/21/16 04:00 Room Air 06/21/16 00:01 Room Air 06/20/16 23:24 36.4 71 18 99/64 92 Room Air 06/20/16 21:10 70 111/59 06/20/16 20:00 Room Air 06/20/16 19:49 37.0 70 16 112/63 92 Room Air 06/20/16 16:43 75 06/20/16 16:00 Room Air 06/20/16 15:07 36.8 78 16 102/56 94 Room Air 06/20/16 12:00 Room Air 06/20/16 11:38 36.3 75 16 105/69 93 Room Air 06/20/16 08:04 36.3 82 16 86/59 95 Room Air 06/20/16 08:00 Room Air Physical Exam General Appearance: no apparent distress ENT: pharynx normal Neck: no JVD Respiratory/Chest: lungs clear, no respiratory distress, no accessory muscle use Cardiovascular: regular rate, rhythm, no gallop, + systolic murmur (2/6 RUSB ) Abdomen: normal bowel sounds, non tender, no organomegaly, + distended (mild) Extremities: no pedal edema Neurologic/Psychiatric: alert, oriented x 3 Laboratory Results Last 24 Hours Test 06/20/16 11:12 06/20/16 12:20 Phosphorus Level 3.0 mg/dl Digoxin Level 1.0 ng/ml Urine Color YELLOW Urine Appearance CLEAR Urine pH 5.0 Urine Specific [place] 1.019 Urine Protein NEG Urine Glucose (UA) NEG Urine Ketones 1+ Urine Occult Blood NEG Urine Nitrite NEG Urine Bilirubin NEG Urine Urobilinogen NEG Urine Leukocyte Esterase NEG Assessment and Plan 86yo male with: 1. SBO, POD #6 s/p ex lap with lysis of large adhesion. Very, very mild ileus on x-rays today. Spoke with gen surg - plan to continue fluids and revert diet back to clears. 2. a. fib with RVR - NEW - resolved; back in sinus rhythm. Cont dig (for now); level 1 today. Cont BB but drop dose to 25mg BID. 3. diarrhea - should improve soon with supportive care. If it does not then consider questran. Cont lactinex. C. diff neg. 4. acute renal failure - resolved. 5. hypokalemia - resolved. 6. aspiration pneumonia - resolved clinically. Has finished abx course. 7. +troponin - thought to be myocardial demand ischemia in the setting of acute renal failure, SBO, etc. No ischemic symptoms at this time. 8. DVT proph - xarelto. 9. Hypercholesterolemia - atorvastatin 10 mg by mouth at bedtime. 10. Restless leg syndrome - pramipexole 0.25 mg by mouth at bedtime. 11. Parkinsonism - carbidopa/levodopa 25/100, 1 tablet by mouth 3 times a day. 12. hypomagnesemia - 2nd to diarrhea - resolved. cont PT, OT family updated again at bedside no discharge today Continued [facility] stay due to: multiple IV medications needed, other (diarrhea s/ p small bowel obstruction) Discharge planning: home
--- NOTE | 2016-06-21 08:43 | Surgery Progress Note ---
Surgery Progress Note Date of Service Jun 21, 2016. Subjective Post OP Day: 6 feeling better beginning around 4:00 yesterday , BM forming, no nausea, wants to try more than jello Objective Vital Signs: Date Time Temp Pulse Resp B/P Pulse Ox O2 Delivery O2 Flow Rate FiO2 06/21/16 04:40 36.5 74 20 122/74 93 Room Air 06/21/16 04:00 Room Air 06/21/16 00:01 Room Air 06/20/16 23:24 36.4 71 18 99/64 92 Room Air 06/20/16 21:10 70 111/59 06/20/16 20:00 Room Air 06/20/16 19:49 37.0 70 16 112/63 92 Room Air 06/20/16 16:43 75 06/20/16 16:00 Room Air 06/20/16 15:07 36.8 78 16 102/56 94 Room Air 06/20/16 12:00 Room Air 06/20/16 11:38 36.3 75 16 105/69 93 Room Air Abdomen: non tender, non distended, soft Incision(s): clean, dry Laboratory Results: Results Past 24 Hours Test 06/20/16 11:12 06/20/16 12:20 Range/Units Phosphorus Level 3.0 2.5-4.9 mg/dl Digoxin Level 1.0 0.8-2.0 ng/ml Urine Color YELLOW Urine Appearance CLEAR CLEAR Urine pH 5.0 4.5-7.5 Urine Specific [place] 1.019 1.000-1.030 Urine Protein NEG NEG Urine Glucose (UA) NEG NEG Urine Ketones 1+ NEG Urine Occult Blood NEG NEG Urine Nitrite NEG NEG Urine Bilirubin NEG NEG Urine Urobilinogen NEG NEG Urine Leukocyte Esterase NEG NEG Assessment & Plan s/p ex lap, lysis adhesive band ileus, improving can have full liquids, advance later today or tomorrow
[2016-06-21] MEDS: METOPROLOL TARTRATE 25 MG TAB PO SCH ×2 (09:48→20:36)
[2016-06-21] MEDS: CARBIDOPA/LEVODOPA 25/100MG TAB PO SCH ×3 (09:49→20:37)
[2016-06-21] MEDS: LACTOBACILLUS ACIDOPHILUS (FLORANEX) TAB PO SCH ×3 (09:49→15:56)
[2016-06-21] MEDS: CYANOCOBALAMIN 500 MCG TAB (VIT B-12) PO SCH (09:49)
[2016-06-21] MEDS: CHOLECALCIFEROL 1000 INTER.UNIT TAB PO SCH (09:49)
--- NOTE | 2016-06-21 14:04 | Medical Student: [facility] ---
Med Student Progress Note Date of Service Jun 21, 2016. Subjective Pt evaluation today including: conversation w/ patient, conversation w/ family , physical exam, lab review, review of studies Voiding: no voiding problems 86 year old male POD#6 of exploratory laparotomy with adhesion lysis for SBO. No acute events overnight. Patient no longer having diarrhea. Stools are more "firm and brown." Patient is still not eating solid foods and is looking forward to trying tonight. Patient would also like to shower. Denies chest pain , shortness of breath, palpitations, nausea, vomiting, and diarrhea. Daughter says "dad's color is back." Review of Systems Constitutional: No fever Respiratory: No cough, No dyspnea on exertion, No shortness of breath, No sputum, No wheezing Cardiac: No chest pain, No palpitations Abdomen: No constipation, No diarrhea, No nausea, No pain, No vomiting Male : No dysuria, No urinary frequency Objective Vital Signs Date Time Temp Pulse Resp B/P Pulse Ox O2 Delivery O2 Flow Rate FiO2 06/21/16 12:00 Room Air 06/21/16 11:18 36.4 65 18 112/68 96 Room Air 06/21/16 10:03 Room Air 06/21/16 04:40 36.5 74 20 122/74 93 Room Air 06/21/16 04:00 Room Air 06/21/16 00:01 Room Air 06/20/16 23:24 36.4 71 18 99/64 92 Room Air 06/20/16 21:10 70 111/59 06/20/16 20:00 Room Air 06/20/16 19:49 37.0 70 16 112/63 92 Room Air 06/20/16 16:43 75 06/20/16 16:00 Room Air 06/20/16 15:07 36.8 78 16 102/56 94 Room Air Physical Exam General Appearance: no apparent distress, + obese ENT: hearing grossly normal Neck: no JVD Respiratory/Chest: chest non-tender, lungs clear, normal breath sounds, no respiratory distress, no accessory muscle use Cardiovascular: regular rate, rhythm, + systolic murmur (RYLEE at RUSB) Abdomen: normal bowel sounds, non tender, soft, + pertinent finding (surgical incision clean and intact) Extremities: no pedal edema Neurologic/Psychiatric: alert, normal mood/affect, oriented x 3 Skin: normal color, warm/dry, no rash Assessment and Plan Assessment and Plan: ASSESSMENT 86 year old male POD#6 of exploratory laparotomy with adhesion lysis for SBO. Patient feeling much better today and still in NSR on the monitor. Will d/c monitor but keep patient in same hospital room so he can be near his . Possible discharge tomorrow if he tolerates solid foods tonight. PLAN 1) SOB POD#6 -healing well from surgical standpoint 2) atrial fibrillation -NSR on the monitor. Stop telemetry. -Metoprolol 25mg BID -Digoxin -Xarelto 3) Hypotension -resolved 4) AKF -resolved 5) Hypokalemia -resolved 6) Aspiration pneumonia -resolved 7) positive troponins -resolved -no symptoms at this time 8) hypercholesterolemia -atorvastatin 9) DVT prophylaxis -Xarelto 10) Diarrhea -resolved 11) hypomganesia -resolved 12) restless leg syndrome -pramipexole 0.25mg 12) Parkinsonism -carbidopa/levodopa 25/100 13) Anorexia -switch patient to full solid diet tonight, if tolerated d/c fluid IV tonight, Continued [facility] stay due to: multiple IV medications needed, other (diarrhea s/ p small bowel obstruction) Discharge planning: home
[2016-06-21] MEDS: DIGOXIN 0.25 MG TAB PO SCH (15:55)
[2016-06-21] MEDS: RIVAROXABAN 10 MG TAB PO SCH (15:56)
--- NOTE | 2016-06-21 20:27 | Progress Note ---
Subjective Date of Service: Jun 21, 2016. Subjective Pt evaluation today including: conversation w/ patient, conversation w/ family (, daughter), physical exam, chart review, lab review, review of inpatient medication list Pain: none PO Intake: tolerating full liquids Voiding: no voiding problems feels MUCH better today stool frequency is less, and stool is becoming formed denies ANY sob, carson, orthopnea no abd pain no nausea or emesis Problem List Medical Problems: (1) Acute kidney injury Status: Acute (2) Dehydration Status: Acute (3) Nausea Status: Acute (4) Vomiting Status: Acute Objective Vital Signs Date Time Temp Pulse Resp B/P Pulse Ox O2 Delivery O2 Flow Rate FiO2 06/21/16 20:11 36.5 80 16 108/65 95 Room Air 06/21/16 16:15 36.4 73 20 105/66 94 Room Air 06/21/16 16:10 96 Room Air 06/21/16 15:55 72 06/21/16 12:00 Room Air 06/21/16 11:18 36.4 65 18 112/68 96 Room Air 06/21/16 10:03 Room Air 06/21/16 04:40 36.5 74 20 122/74 93 Room Air 06/21/16 04:00 Room Air 06/21/16 00:01 Room Air 06/20/16 23:24 36.4 71 18 99/64 92 Room Air 06/20/16 21:10 70 111/59 Physical Exam General Appearance: no apparent distress ENT: pharynx normal Neck: no JVD Respiratory/Chest: no respiratory distress, no accessory muscle use, + rales ( dry rales bases) Cardiovascular: regular rate, rhythm, no gallop, + systolic murmur (2/6 RUSB) Abdomen: normal bowel sounds, non tender, soft, no organomegaly, + distended ( slight) Extremities: no pedal edema Neurologic/Psychiatric: alert, oriented x 3 Skin: + pertinent finding (abdominal wall incision clean; srinivasa intact; no drainage or erythema ) Laboratory Results Last 24 Hours Test 06/21/16 18:20 Stool Occult Blood NEGATIVE Assessment and Plan 86yo male with: 1. SBO, POD #7 s/p ex lap with lysis of large adhesion. GI function much improved; less diarrhea, no further nausea/emesis. Advance diet. 2. a. fib with RVR - NEW - resolved; back in sinus rhythm. Cont dig (for now). Cont BB at 25mg BID. Cont xarelto. 3. diarrhea - resolved. Abx-associated. C. diff negative. Cont lactinex. 4. acute renal failure - resolved. 5. hypokalemia - resolved. 6. aspiration pneumonia - resolved. Has finished abx course. 7. +troponin - thought to be myocardial demand ischemia in the setting of acute renal failure, SBO, etc. No ischemic symptoms at this time. 8. DVT proph - xarelto. 9. Hypercholesterolemia - atorvastatin 10 mg by mouth at bedtime. 10. Restless leg syndrome - pramipexole 0.25 mg by mouth at bedtime. 11. Parkinsonism - carbidopa/levodopa 25/100, 1 tablet by mouth 3 times a day. 12. hypomagnesemia - 2nd to diarrhea - resolved. cont PT, OT family updated again at bedside d/c IVF suspect d/c home tomorrow Continued [facility] stay due to: other (diarrhea s/p small bowel obstruction) Discharge planning: home
[2016-06-21] MEDS: PRAMIPEXOLE DIHYDROCHLORIDE 0.25MG TAB PO SCH (20:36)
[2016-06-21] MEDS: ATORVASTATIN 10 MG TAB PO SCH (20:36)
[2016-06-22 06:49] LABS: CALCIUM 7.8 mg/dl (8.5-10.1)
[2016-06-22 07:07] VITALS: BP 115/62; PULSE 71; TEMP 36.4; O2SAT 93
--- NOTE | 2016-06-22 07:16 | SURGERY PROGRESS NOTE ---
DATE: 06/22/2016 Harsh is 1 week postop exploratory lap, lysis of adhesive band. He feels great. He is anxious to go home at this time even though his who is next to him in the hospital bed will stay in the hospital for some time. His last vitals showed a temperature of 36.9, pulse 88, respirations 16, blood pressure 133/74, O2 sat 97 on room air. I\T\O -- his weight is down. His I\T\O is being balanced. His abdomen is completely benign. The incision is healing well. The srinivasa are intact and we will probably try to remove them before he is being discharged. Laboratory jorgensen, the PRPs are pending for this morning. Instructions have been left on the chart. He may shower. No restriction on activity with common sense. I will see him back in the office in a week or so.
[2016-06-22 08:00] VITALS: O2SAT 93
[2016-06-22] MEDS: CARBIDOPA/LEVODOPA 25/100MG TAB PO SCH (08:20)
[2016-06-22] MEDS: CYANOCOBALAMIN 500 MCG TAB (VIT B-12) PO SCH (08:20)
[2016-06-22] MEDS: LACTOBACILLUS ACIDOPHILUS (FLORANEX) TAB PO SCH (08:21)
[2016-06-22] MEDS: METOPROLOL TARTRATE 25 MG TAB PO SCH (08:21)
[2016-06-22] MEDS: CHOLECALCIFEROL 1000 INTER.UNIT TAB PO SCH (08:21)
[2016-06-22] MEDS ORDERED: HYDR-5688 PO (09:48)
[2016-06-22] MEDS ORDERED: LCTX PO (09:48)
[2016-06-22] MEDS ORDERED: RIVA1TAB4 PO (09:48)
[2016-06-22] MEDS ORDERED: LPR25 PO (09:48)
--- NOTE | 2016-06-22 10:01 | Discharge Instructions ---
Discharge Instructions Date of Service Jun 22, 2016. Admission Reason for Admission: Small Bowel Obstruction Discharge Discharge Diagnosis / Problem: 1. small bowel obstruction with need for surgery 2. atrial fibrillation Discharge Goals Goal(s): Decrease discomfort, Improve disease control, Learn about illness, Diagnostic testing, Therapeutic intervention Activity Recommendations Activity Limitations: as noted below Lifting Limitations: no more than 10 pounds Exercise/Sports Limitations: until after follow-up appointment (with Dr. Cleveland ) Shower/Bathe: no limitations (ok to shower; steri strips may get wet but do not remove the strips; let them fall off on their own over time ) 1. no driving until seen by Dr. Cleveland 2. no excessive bending at the waist; no heavy exertional activities (working in the yard or around the house, etc) until you are cleared by Dr. Cleveland . Instructions / Follow-Up Instructions / Follow-Up From Dr. Alberto - 1. bowel obstruction with need for surgery - * see Dr. Cleveland in 1 week for incision check * please call his office right away with any concerns regarding your abdomen ( worsening pain, frequent stooling, nausea, vomiting, the incision looks red, etc ) 2. atrial fibrillation (a. fib) - * see educational handout * take xarelto 20mg once daily to thin your blood and reduce your risk of stroke from the a. fib * take metoprolol 25mg twice daily every day * please stop your diovan as you will now be taking metoprolol * since xarelto is a blood thinner you are at increased risk of bleeding from the nose, GI tract, genitourinary tract, skin, etc * do not use straight razor to shave * use an electric razor instead * you do NOT need to modify your diet while taking xarelto * if you experience bleeding from any of the above locations stop the xarelto and call your family doctor right away 3. pain control - * if you have any abdominal discomforts you may take the pain pills provided to you * can take 1 pill every 6 hours as needed * these pills can cause constipation * they can also make you drowsy * do not drink alcohol if you are taking pain pills * the pain pills contain tylenol so do not take additional [id number] tylenol while on them 4. see your family doctor ( Dr. Lion ) within 5 days if possible Current Hospital Diet Patient's current hospital diet: Regular Diet Discharge Diet Recommended Diet: Regular Diet Procedures Procedures Performed: 1. Exploratory Laparotomy, Lysis of adhesions 2. echocardiogram showing mild aortic stenosis (calcium build-up on the valve), normal heart function, thickened left ventricle (also known as "hypertrophy") Pending Studies Studies pending at discharge: no Medical Emergencies . Who to Call and When: Medical Emergencies: If at any time you feel your situation is an emergency, please call 911 immediately. . Non-Emergent Contact Non-Emergency issues call your: Surgeon Call Non-Emergent contact if: temperature is above 100.5, your pain is not controlled, your pain is unusual for you, your pain is concerning you, wound has increased drainage, wound has increased redness, wound has increased pain, you have any medication questions . . "Provider Documentation" section prepared by Naag Alberto. VTE Core Measure Inpt VTE Proph given/why not?: Other Anticoagulation, SCD's
[2016-06-22 11:02] VITALS: BP 115/62; PULSE 71; TEMP 36.4; O2SAT 93
[2016-06-22 11:48] VITALS: BP 132/69; PULSE 62; TEMP 36.3; O2SAT 94
--- NOTE | 2016-06-26 11:29 | Discharge Summary ---
Discharge Summary Date of Service Jun 26, 2016. Discharge Summary Admission Date: Jun 12, 2016 at 22:21 Discharge Date: Jun 22, 2016 Discharge Disposition: Home Principal Diagnosis: SBO s/p ex lap Problems/Secondary Diagnoses: 1. paroxysmal a. fib - resolved 2. HTN 3. hyperlipidemia 4. BPH 5. ileus - resolved 6. mild aortic stenosis 7. parkinson's disease 8. hypokalemia - resolved 9. myocardial demand ischemia / positive troponin - due to dehydration in setting of SBO 10. acute renal failure - resolved 11. hypomagnesemia - resolved Procedures: 1. CT abd/pelvis: IMPRESSION: 1. Findings consistent with distal small bowel obstruction somewhat proximal to the terminal ileum. 2. Etiology is unclear although well-defined mass is not seen. 3. Bibasilar parenchymal infiltrative changes. 4. Gallstones. 2. Exploratory lap, lysis of adhesive band - Bobby Cleveland MD 3. echocardiogram: * 1. Normal left ventricular size with hyperdynamic systolic function. EF > 70% . Left ventricle not well visualized but some images suggests severe hypertrophy of basal anteroseptum, otherwise moderate concentric left ventricular hypertrophy. * 2. One image suggests systolic anterior motion of the mitral leaflet with intracavitary obstruction (peak gradient 36 mmHg). * 3. Mild left atrial dilation. * 4. Probable mild aortic stenosis. * 5. Poor image quality. * 6. Technically difficult study; enhanced with IV Definity. * 7. Atrial fibrillation with RVR. * 8. No prior study available for comparison. Consultations: general surgery - Bobby Cleveland MD PT, OT Medication Reconciliation New Medications: Hydrocodone/Acetaminophen 5MG/325MG (Castile 5MG/325MG) Tab 1 TABLET PO Q6H PRN for Pain, #15 TAB 0 Refills Lactobacillus Acidophilus (Floranex) 1 Tab Tab 2 TAB PO TIDM for 7 Days, #42 TAB 0 Refills Metoprolol Tartrate (Lopressor) 25 Mg Tab 25 MG PO BID, #60 TAB 11 Refills Rivaroxaban (Xarelto) 20 Mg Tab 1 TAB PO DAILY for 30 Days, #30 TAB 11 Refills Continued Medications: Atorvastatin (Lipitor) 10 Mg Tab 10 MG PO HS, TAB Carbidopa/Levodopa (Sinemet 25MG/100MG) Tab 1 TAB PO TID, TAB Cholecalciferol (Vitamin D3) 2,000 Unit Cap 2000 INTUNIT PO QAM Cyanocobalamin (Vitamin B-12 1000 Mcg) 1,000 Mcg Tab 1000 MCG PO QAM, TAB Ipratropium [place] (Nasal) (Atrovent) 0.03 % Candi 2 SPRAYS SOSA QAM Mupirocin 2% (Bactroban 2%) 30 Gm Cr 1 APPLN EXT QAM for APPLY IN NOSE BILATERALLY Pramipexole Dihydrochloride (Pramipexole Dihydrochlori) 0.25 Mg Tab 0.25 MG PO HS [Gentamycin Sulfate] () 3 OZ NA DAILY PRN for PRN IRRIGATE EACH SIDE OF NOSE WITH 3 OZ BID Discontinued Medications: Aspirin (Aspirin Ec) 81 Mg Tab 81 MG PO Q2D Valsartan (Diovan) 40 Mg Tab 40 MG PO QAM, TAB Referrals At Discharge Follow up Referrals: Surgery Referral - Within 1 Week with Al Cleveland M.D. Discharge Exam Physical Exam: General Appearance: no apparent distress ENT: pharynx normal Neck: no JVD Respiratory/Chest: lungs clear (scant dry rales bases), no respiratory distress, no accessory muscle use Cardiovascular: regular rate, rhythm, no gallop, normal peripheral pulses, + systolic murmur (2/6 RUSB) Abdomen / GI: normal bowel sounds, non tender, soft, no organomegaly Extremities: no pedal edema Neurologic/Psychiatric: alert, oriented x 3 Skin: + pertinent finding (mildline abdominal wall incision clean) Hospital Course HISTORY OF PRESENT ILLNESS: The patient is an 86-year-old male who presented to the emergency department from his PCP's office with persistent generalized weakness and 2 days of recurrent, dark brown emesis. He had significant weakness. CT abd/pelvis obtained at time of admission showed SBO. HOSPITAL COURSE: The patient was initially treated for his SBO with IVF, NG tube decompression, and general surgery consultation. He ultimately required exploratory laparotomy by Dr. Bobby Cleveland which revealed a large adhesion requiring lysis. Post-operatively he had slow progress marked by ileus, anorexia, and also diarrhea. Fortunately these symptoms resolved, a regular diet was resumed, and his stools normalized prior to discharge. He will follow-up with Dr. Cleveland in 1 week after discharge. His hospitalization was complicated by the following medical issues - 1. acute renal failure - resolved with IV fluid resuscitation. Peak Cr was 3.3 , improving to 1 at discharge. 2. atrial fibrillation with RVR - treated with beta taiwo and digoxin. He ultimately converted back to NSR and remained in such until time of discharge. He will continue on oral beta taiwo at home. Risk of stroke was discussed with him and he was agreeable to starting anticoagulation in the way of xarelto. 3. hypokalemia, hypomagnesemia - resolved with supplementation. 4. aspiration pneumonia - there was some concern he developed this in the setting of his recurrent vomiting. He completed a full course of IV/PO antibiotics while here and is stable in RA at discharge. 5. +troponin - thought to be myocardial demand ischemia in the setting of acute renal failure, SBO, dehydration, etc. He had no ischemic symptoms during his stay and echo did not show any wall motion abnormality. The patient was seen by PT who felt he was safe for discharge to home. Total Time Spent: Greater than 30 minutes This includes examination of the patient, discharge planning, medication reconciliation, and communication with other providers. Discharge Instructions Please refer to the electronic Patient Visit Report (Discharge Instructions) for additional information. Follow-Up 1. see Dr. Cleveland in [address] Lion within 1 week Additional Copies To Dino Lion M.D.; Al Cleveland M.D.
== END 2016-06-22 12:30 | disposition home health service (06) | DRG 335 ==
LOC: ENRESERVDT → ENRESERVTM → C.EDB 19:50 → C.MSW 22:21 → C.2T 06-14 08:43 → C.MED 06-17 12:23
PROVIDERS: ADMIT Hospitalist; ATTEND Internal Medicine
PROC: 0DN80ZZ Release Small Intestine, Open Approach (ICD-10-PCS; principal; 2016-06-15 08:30)
DX: K56.5 Intestinal adhesions [bands] with obstruction (postinfection) (principal); J69.0 Pneumonitis due to inhalation of food and vomit; N17.9 Acute kidney failure, unspecified; I10 Essential (primary) hypertension; N40.0 Benign prostatic hyperplasia without lower urinary tract symptoms; E78.5 Hyperlipidemia, unspecified; Z87.891 Personal history of nicotine dependence; Z79.82 Long term (current) use of aspirin; Z79.899 Other long term (current) drug therapy; E86.0 Dehydration; R09.02 Hypoxemia; E78.00 Pure hypercholesterolemia, unspecified; G25.81 Restless legs syndrome; G20 Parkinson's disease; E53.8 Deficiency of other specified B group vitamins; I48.91 Unspecified atrial fibrillation; E87.6 Hypokalemia; E83.42 Hypomagnesemia; R19.7 Diarrhea, unspecified; R63.0 Anorexia; Z68.27 Body mass index [BMI] 27.0-27.9, adult; I95.9 Hypotension, unspecified; K80.20 Calculus of gallbladder without cholecystitis without obstruction; R11.2 Nausea with vomiting, unspecified

== ENCOUNTER → 2016-06-12 | Outpatient (CLI) | payer BC ==
[~2016-06-12] MED LIST: ASPI81TA28 PO; ATOR10TA82 PO; BCTCR/30 EXT; CARB25TA12 PO; CHOL2000 PO; CYAN10004 PO; GENTAMICIN; HYDR-5688 PO; IPRA0.032 NAE; LCTX PO; LPR25 PO; PANT40TA PO; PRAM0.256 PO; RIVA1TAB4 PO; VALS40TA2 PO; [UNRECOGNIZED DRUG - CODE] PO
--- NOTE | 2016-06-12 14:19 | DIAGNOSTIC IMAGING REPORT ---
ABDOMINAL ULTRASOUND, RIGHT UPPER QUADRANT HISTORY: Nausea, vomiting and right upper quadrant pain.. COMPARISON: None. FINDINGS: This study is compromised by suboptimal penetration related to overlying bowel gas. The pancreas is obscured. The liver is sonographically normal. Multiple gallstones are noted within the gallbladder. There is no gallbladder wall thickening or pericholecystic fluid. No biliary ductal dilatation is identified. There is a possible 5 mm stone within the common bile duct. There is no right hydronephrosis. IMPRESSION: 1. Cholelithiasis. No gallbladder wall thickening. 2. Possible common bile duct calculus without significant biliary ductal dilatation. This could be correlated with obstructive liver function tests. 3. Study compromised by suboptimal penetration with obscuration of the pancreas. Electronically signed by: Andriy House M.D. 06/12/2016 2:18 PM Dictated Date/Time: 06/12/2016 2:15 PM
[2016-06-12 16:56] LABS: BASO % 0.2 %; BASO ABS # 0.02 K/uL (0-0.2); COMPLETE YES; EOS % 0.5 %; HEMATOCRIT 44.5 % (42-52); IG% 0.2 %; LYMPH % 15.5 %; LYMPH ABS # 1.87 K/uL (1.2-3.4); MEAN CELL VOLUME 88.1 fL (80-100); MEAN CORPUSCULAR HEMOGLOBIN 31.1 pg (25-34); MEAN CORPUSCULAR HGB CONC 35.3 g/dl (32-36); MEAN PLATELET VOLUME 10.3 fL (7.4-10.4); MONO % 14.1 %; NEUT % 69.5 %; PLATELET COUNT 252 K/uL (130-400); RED BLOOD COUNT 5.05 M/uL (4.7-6.1); WHITE BLOOD COUNT 12.07 K/uL (4.8-10.8)
[2016-06-12 17:03] LABS: AMYLASE 51 U/L (25-115); BLOOD UREA NITROGEN 40 mg/dl (7-18); BUN/CREATININE RATIO 19.2 (10-20); CALCIUM 9.2 mg/dl (8.5-10.1); CARBON DIOXIDE 32 mmol/L (21-32); CHLORIDE 97 mmol/L (98-107); GLUCOSE 129 mg/dl (70-99); POTASSIUM 4.1 mmol/L (3.5-5.1); SODIUM 136 mmol/L (136-145)
== END | disposition home or self-care (01) ==
LOC: C.ULTRBC 12:51
PROVIDERS: ATTEND Physician Assistant Medical
DX: K80.20 Calculus of gallbladder without cholecystitis without obstruction (principal); R11.2 Nausea with vomiting, unspecified

== ENCOUNTER → 2016-08-31 | Outpatient (CLI) | payer BC ==
[~2016-08-31] MED LIST changes: -ASPI81TA28 PO; +CARB25TA12 PO; +HYDR-5688 PO; +LCTX PO; +LPR25 PO; -PANT40TA PO; +RIVA1TAB4 PO; -VALS40TA2 PO; -[UNRECOGNIZED DRUG - CODE] PO
== END | disposition home or self-care (01) ==
LOC: C.LAB1850 08:14
PROVIDERS: ATTEND Internal Medicine Cardiovascular Disease
DX: E78.5 Hyperlipidemia, unspecified (principal)

== ENCOUNTER → 2016-12-19 | Outpatient (CLI) | payer BC ==
[~2016-12-19] MED LIST changes: -ATOR10TA82 PO; +ATOR10TA88 PO; -HYDR-5688 PO; -LCTX PO
[2016-12-19 10:52] LABS: BASO % 0.3 %; BASO ABS # 0.02 K/uL (0-0.2); COMPLETE YES; EOS % 3.1 %; IG% 0.2 %; LYMPH % 25.7 %; LYMPH ABS # 1.47 K/uL (1.2-3.4); MEAN CELL VOLUME 90.5 fL (80-100); MEAN CORPUSCULAR HEMOGLOBIN 30.9 pg (25-34); MEAN CORPUSCULAR HGB CONC 34.2 g/dl (32-36); MEAN PLATELET VOLUME 10.3 fL (7.4-10.4); MONO % 16.6 %; NEUT % 54.1 %; PLATELET COUNT 187 K/uL (130-400); RED BLOOD COUNT 3.98 M/uL (4.7-6.1); WHITE BLOOD COUNT 5.73 K/uL (4.8-10.8)
[2016-12-19 12:03] LABS: ALT/SGPT 11 U/L (12-78); AST/SGOT 15 U/L (15-37); BLOOD UREA NITROGEN 21 mg/dl (7-18); BUN/CREATININE RATIO 22.3 (10-20); CALCIUM 8.1 mg/dl (8.5-10.1); CARBON DIOXIDE 25 mmol/L (21-32); CHLORIDE 107 mmol/L (98-107); CREATININE 0.93 mg/dl (0.60-1.40); GLUCOSE 86 mg/dl (70-99); SODIUM 139 mmol/L (136-145)
[2016-12-19 12:13] LABS: ALB/GLOB RATIO 1.1 (0.9-2); ALKALINE PHOSPHATASE 71 U/L (45-117)
== END | disposition home or self-care (01) ==
LOC: C.LABBC 08:17
PROVIDERS: ATTEND Internal Medicine Geriatric Medicine
DX: E53.8 Deficiency of other specified B group vitamins (principal); I10 Essential (primary) hypertension; R53.83 Other fatigue; E78.5 Hyperlipidemia, unspecified; D64.9 Anemia, unspecified; G47.61 Periodic limb movement disorder; G60.9 Hereditary and idiopathic neuropathy, unspecified; I48.0 Paroxysmal atrial fibrillation

== ENCOUNTER 2018-10-12 09:43 | Observation (INO) ==
[2018-10-12] MEDS ORDERED: ASPIRIN CHEW 324 MG PO STA (10:02)
[2018-10-12 10:18] LABS: Basophils # (auto) 0.01 K/uL (0-0.2); Basophils % (auto) 0.1 %; Hematocrit (blood only) 38.1 % (42-52); Hemoglobin 13.1 g/dL (14.0-18.0); Immature Granulocytes # (auto) 0.02 K/uL (0.00-0.02); Immature Granulocytes % (auto) 0.2 %; Lymphocytes # (auto) 1.91 K/uL (1.2-3.4); Lymphocytes % (auto) 14.9 %; Mean Corpuscular Hgb Conc 34.4 g/dL (32-36); Mean Corpuscular Volume 89.4 fL (80-100); Mean Platelet Volume 10.2 fL (7.4-10.4); Monocytes # (auto) 1.12 K/uL (0.11-0.59); Monocytes % (auto) 8.8 %; Neutrophils # (auto) 9.72 K/uL (1.4-6.5); Platelet Count 173 K/uL (130-400); RDW Standard Deviation 51.9 fL (36.4-46.3); Red Blood Count 4.26 M/uL (4.7-6.1); White Blood Count 12.78 K/uL (4.8-10.8)
--- NOTE | 2018-10-12 10:30 | XRay Report ---
XR chest 1V portable HISTORY: 88 years-old Male Chest Pain acute atypical chest pain COMPARISON: Acute abdominal series radiographs or 2016 TECHNIQUE: Portable AP view of the chest FINDINGS: Cardiomediastinal and hilar silhouettes are within normal limits. Mild chronic interstitial coarsenin g of the lung bases. Calcified plaque of the thoracic aortic arch. No pneumothorax, pleural effusion, focal airspace consolidation or overt pulmonary edema. Healed remote fracture about the posterior ri ght third rib. Degenerative changes of the shoulders and spine. IMPRESSION: No acute process. The above report was generated using voice recognition software. It may contain grammatical, syntax o r spelling errors. Electronically signed by: Antonino Huang M.D. 10/12/2018 10:27 AM
[2018-10-12 10:32] LABS: INR 1.3 (0.9-1.1); Prothrombin Time 12.9 Seconds (9.0-12.0)
[2018-10-12 10:38] LABS: Alanine Aminotransferase 23 U/L (12-78); Albumin Level 3.7 gm/dl (3.4-5.0); Aspartate Aminotransferase 24 U/L (15-37); Blood Urea Nitrogen 27 mg/dl (7-18); Calcium 8.4 mg/dl (8.5-10.1); Carbon Dioxide 24 mmol/L (21-32); Chloride 110 mmol/L (98-107); Est GFR (African American) 65.5; Est GFR (Non-African American) 56.5; Glucose 141 mg/dl (70-99); Potassium 3.8 mmol/L (3.5-5.1); Sodium 140 mmol/L (136-145)
[2018-10-12 10:42] LABS: Albumin Globulin Ratio 1.1 (0.9-2); Alkaline Phosphatase 67 U/L (45-117); Bilirubin,Total 0.6 mg/dl (0.2-1); Creatine Kinase 257 U/L (39-308); Creatine Kinase MB 3.2 ng/ml (0.5-3.6); Globulin 3.3 gm/dl (2.5-4.0); Troponin I < 0.015 ng/ml (0-0.045)
--- NOTE | 2018-10-12 10:59 | Emergency Department Note ---
History of Present Illness General Chief complaint: Chest Pain Stated complaint: CHEST PAIN Time Seen by Provider: 10/12/18 09:48 Source: patient and family Mode of arrival: ambulatory Limitations: no limitations History of Present Illness Maximum Pain Intensity: 1 This 88-year-old white male presents with his daughter, for evaluation of chest pain that began this morning. Patient states he was getting himself ready for the day. He walked his dog for a few minutes, got dressed, and got himself breakfast. He had a pressure-like discomfort in his chest. He has had this numerous times over the last few months. He has not notified his frame tender, Dr. Montero. He states he usually gets it when walking uphill to the mailbox. Also usually occurs with any activity after he has eaten a full meal. This morning it was a bit different in that it also radiated to his left forearm. He came to the ED for evaluation, and the pain resolved approximately half way here while in the car. He currently has no pain. It was not sharp. He denies any diaphoresis. No nausea or vomiting. He denies tightness but states there was pressure on his chest. He has a history of atrial fibrillation and is on Xarelto. Also history of GERD. Home Medications Home Medications Medication Instructions Recorded Confirmed Type atorvastatin 10 mg tablet 10 mg PO DAILY 07/18/18 10/12/18 History carbidopa 25 mg-levodopa 100 mg 0.5 tab PO DAILY 07/18/18 10/12/18 History tablet ipratropium bromide 0.03 % nasal 2 sprays INTNAS QA 07/18/18 10/12/18 History spray pramipexole 0.25 mg tablet 0.25 mg PO HS 07/18/18 10/12/18 History metoprolol tartrate 50 mg tablet 25 mg PO BID #180 tab 09/09/18 10/12/18 Rx calcium carbonate-vitamin D3 1 tab PO QAM 10/12/18 10/12/18 History [Caltrate 600 plus D] cyanocobalamin (vitamin B-12) 1,000 mcg PO QAM 10/12/18 10/12/18 History meloxicam 15 mg PO DAILY 10/12/18 10/12/18 History ranitidine HCl 150 mg PO BID 10/12/18 10/12/18 History rivaroxaban [Xarelto] 15 mg PO QDD 10/12/18 10/12/18 History Allergies Allergy/AdvReac Type Severity Reaction Status Date / Time No Known Allergies Allergy Verified 10/12/18 10:12 Past Med/Surg History Family History Unknown Coronary heart disease Social History Communication Ability: Effective Visual Impairment: Limited Hearing Ability: Normal Tracer Clerk Required: No Beliefs That Will Affect Care: None marital status: Current Living Situation: Alone current occupational status: retired Other Information That Helps Us Care for You: No Feels Safe at Home: Yes Safety Concerns: Feels Safe At This Time Smoking Status: Former smoker Do You Dip or Chew Tobacco: No ; Second Hand Exposure: No ; Tobacco Cessation Education Requested by Patient: No Hx Alcohol Use: Yes Alcohol type: beer Alcohol Intake Frequency: Holidays/Special Occasions Hx Substance Use: No Review of Systems A total of 10 systems reviewed and were otherwise negative Physical Exam Vital Signs Vital Signs - 24 hr 10/12/18 09:48 10/12/18 09:55 10/12/18 09:58 Sepsis Recent Fever Within 48 Hours No Sepsis Action Taken by Nursing No Action Required Pulse Rate 90 91 H 95 H Pulse Rate from SpO2 Sensor 83 88 Respiratory Rate 20 16 16 Blood Pressure 153/83 H 150/80 H Blood Pressure Mean 106 103 Pulse Oximetry 96 96 95 Oxygen Delivery Method Room Air 10/12/18 10:00 10/12/18 10:01 10/12/18 10:30 Sepsis Recent Fever Within 48 Hours Sepsis Action Taken by Nursing Pulse Rate 94 H 90 76 Pulse Rate from SpO2 Sensor 92 H 87 77 Respiratory Rate 17 16 16 Blood Pressure 136/74 Blood Pressure Mean 94 Pulse Oximetry 94 95 95 Oxygen Delivery Method 10/12/18 10:31 10/12/18 10:38 10/12/18 11:46 Sepsis Recent Fever Within 48 Hours Sepsis Action Taken by Nursing Pulse Rate 78 61 Pulse Rate from SpO2 Sensor 78 Respiratory Rate 15 18 Blood Pressure 118/70 155/58 H Blood Pressure Mean 86 90 Pulse Oximetry 96 96 95 Oxygen Delivery Method Room Air Room Air General: Well-developed, elderly white male, in no acute distress. Sitting on a bed. Alert and oriented. Skin: Warm and dry with fair turgor. No rashes or lesions. No ecchymosis or erythema. The patient is not diaphoretic. No abrasions. HEENT: Normocephalic atraumatic. Eyes PERRLA, EOMI. No conjunctiva or scleral injection. Nares patent bilaterally without turbinate enlargement. No significant drainage. No epistaxis. Oropharynx without erythema or exudate. Uvula midline, oral mucosa moist. No lesions present. Upper denture plate noted. Heart: Heart RRR. No GR. 3/6 ejection murmur noted. Occasional PVC. Peripheral pulses are 2+. Lungs: Lungs are clear to auscultation. No crackles rhonchi or wheezing. Good air movement. The patient is able to take a deep breath. Abdomen: Abdomen was inspected, auscultated, and palpated. Obese. Bowel sounds present x 4. Soft, nontender to palpation. No hepato-splenomegaly. No masses noted. No rebound. Diastases hernia present. Musculoskeletal: Gross motor function of the upper and lower extremities is intact and unremarkable. Course Administered Medications Carbidopa/Levodopa (Sinemet 25/100 Mg) 0.5 tab PO QAM [facility]; Protocol Stop: 11/12/18 08:59 Last Admin: 10/12/18 14:07 Dose: 0.5 tab Documented by: [id number] Discontinued Medications Aspirin (Aspirin) 324 mg PO NOW STA Stop: 10/12/18 10:03 Last Admin: 10/12/18 10:37 Dose: 324 mg Documented by: [id number] Heparin Sodium/Dextrose (Heparin Sodium/Dextrose) 25,000 units in 500 mls @ 0.02 mls/hr IV .Q24H [facility]; Protocol Stop: 11/11/18 12:52 Last Admin: 10/12/18 14:49 Dose: Not Given Documented by: [id number] Medical Decision Making Differential Diagnosis IL, ACS, angina, pleurisy, pneumonia, intercostal strain Medical Records Attestation: I reviewed the patient's medical records. Home Medications Current Medication List: was personally reviewed by me Laboratory Data Attestation: I reviewed the patient's lab results. CBC, INR, chemistry panel, lipase, CK/CK-MB, and troponin were obtained. CBC shows mild elevation in white count at 12.78. Mild anemia with H&H of 13.1 and 38.1. INR 1.3. PRP is unremarkable. Cardiac enzymes are normal. Lipase is also normal. Result diagrams: 10/12/18 10:05 10/12/18 10:05 Lab Results 10/12/18 10/12/18 10/12/18 Range/Units 10:05 10:05 10:05 WBC 12.78 H (4.8-10.8) K/uL RBC 4.26 L (4.7-6.1) M/uL Hgb 13.1 L (14.0-18.0) g/dL Hct 38.1 L (42-52) % MCV 89.4 (80-100) fL MCH 30.8 (25-34) pg MCHC 34.4 (32-36) g/dL RDW Std Deviation 51.9 H (36.4-46.3) fL RDW Coeff of Estefania 16.0 H (11.5-14.5) % Plt Count 173 (130-400) K/uL MPV 10.2 (7.4-10.4) fL Immature Gran % (Auto) 0.2 % Neut % (Auto) 76.0 % Lymph % (Auto) 14.9 % [place] % (Auto) 8.8 % Eos % (Auto) 0.0 % Baso % (Auto) 0.1 % Immature Gran # (Auto) 0.02 (0.00-0.02) K/uL Neut # (Auto) 9.72 H (1.4-6.5) K/uL Lymph # (Auto) 1.91 (1.2-3.4) K/uL Canadian # (Auto) 1.12 H (0.11-0.59) K/uL Eos # (Auto) 0.00 (0-0.5) K/uL Baso # (Auto) 0.01 (0-0.2) K/uL PT 12.9 H (9.0-12.0) Seconds INR 1.3 H (0.9-1.1) APTT (21.0-31.0) Seconds PTT Ratio Sodium 140 (136-145) mmol/L Potassium 3.8 (3.5-5.1) mmol/L Chloride 110 H (98-107) mmol/L Carbon Dioxide 24 (21-32) mmol/L Anion Gap 6.0 (3-11) BUN 27 H (7-18) mg/dl Creatinine 1.15 (0.6-1.4) mg/dl Est Cr Clr Drug Dosing Not Reportable Est GFR ( Amer) 65.5 Est GFR (Non-Af Amer) 56.5 BUN/Creatinine Ratio 23.0 H (10-20) Glucose 141 H (70-99) mg/dl Calcium 8.4 L (8.5-10.1) mg/dl Total Bilirubin 0.6 (0.2-1) mg/dl AST 24 (15-37) U/L ALT 23 (12-78) U/L Alkaline Phosphatase 67 (45-117) U/L Total Creatine Kinase 257 (39-308) U/L CK-MB (CK-2) 3.2 (0.5-3.6) ng/ml CK/CKMB % Calc 1.2 (0-3.0) Troponin I < 0.015 (0-0.045) ng/ml Total Protein 7.0 (6.4-8.2) gm/dl Albumin 3.7 (3.4-5.0) gm/dl Globulin 3.3 (2.5-4.0) gm/dl Albumin/Globulin Ratio 1.1 (0.9-2) Lipase 54 L (73-393) U/L Specimen Hemolysis 10/12/18 Range/Units 10:05 WBC (4.8-10.8) K/uL RBC (4.7-6.1) M/uL Hgb (14.0-18.0) g/dL Hct (42-52) % MCV (80-100) fL MCH (25-34) pg MCHC (32-36) g/dL RDW Std Deviation (36.4-46.3) fL RDW Coeff of Estefania (11.5-14.5) % Plt Count (130-400) K/uL MPV (7.4-10.4) fL Immature Gran % (Auto) % Neut % (Auto) % Lymph % (Auto) % [place] % (Auto) % Eos % (Auto) % Baso % (Auto) % Immature Gran # (Auto) (0.00-0.02) K/uL Neut # (Auto) (1.4-6.5) K/uL Lymph # (Auto) (1.2-3.4) K/uL Canadian # (Auto) (0.11-0.59) K/uL Eos # (Auto) (0-0.5) K/uL Baso # (Auto) (0-0.2) K/uL PT (9.0-12.0) Seconds INR (0.9-1.1) APTT 27.2 (21.0-31.0) Seconds PTT Ratio 1.0 Sodium (136-145) mmol/L Potassium (3.5-5.1) mmol/L Chloride (98-107) mmol/L Carbon Dioxide (21-32) mmol/L Anion Gap (3-11) BUN (7-18) mg/dl Creatinine (0.6-1.4) mg/dl Est Cr Clr Drug Dosing Est GFR ( Amer) Est GFR (Non-Af Amer) BUN/Creatinine Ratio (10-20) Glucose (70-99) mg/dl Calcium (8.5-10.1) mg/dl Total Bilirubin (0.2-1) mg/dl AST (15-37) U/L ALT (12-78) U/L Alkaline Phosphatase (45-117) U/L Total Creatine Kinase (39-308) U/L CK-MB (CK-2) (0.5-3.6) ng/ml CK/CKMB % Calc (0-3.0) Troponin I (0-0.045) ng/ml Total Protein (6.4-8.2) gm/dl Albumin (3.4-5.0) gm/dl Globulin (2.5-4.0) gm/dl Albumin/Globulin Ratio (0.9-2) Lipase (73-393) U/L Specimen Hemolysis Imaging Data Attestation: I personally reviewed and interpreted this imaging study as follows: Radiologist's Impression: Chest x-ray obtained today was reviewed by me and read by radiology. No pleural effusion, pleural edema, or pneumothorax. Old healed fracture of the right third rib. ECG Data Attestation: I personally reviewed and interpreted this ECG as follows: Additional Comments: Sinus rhythm with a first-degree AV block. Nonspecific ST and T wave abnormality. Rate of 84. ST depression is worse in the lateral leads compared to EKG from June 2016. Blood Pressure Blood Pressure Findings: Normal blood pressure MDM Narrative Patient was evaluated in A3. IV was established. Labs were obtained. Chest x- ray and EKG were also obtained. Chest x-ray is unremarkable. EKG has new changes in the lateral leads compared to June 2016. Given that he has had approximately 3 weeks of exertional symptoms with worsening today, I do think he requires a more thorough work-up for possible unstable angina. He previously had an echocardiogram September 25, 2018 that showed normal wall motion and systolic function. Ejection fraction of 50 to 55%. Mild concentric left ventricular hypertrophy. Moderate aortic stenosis and mild mitral regurgitation. He will be admitted for further evaluation. [facility] Please see that dictation for final management. Patient remained stable while in the ED. He was seen in conjunction with Dr. Hodge, who also evaluated the patient and concurred with today's diagnosis and treatment plan. Impression & Plan Chest pain, Angina pectoris, unstable Admission Discharge Plan Visit Data *Final* Discharge Date/Time: 10/12/18 12:39 Chief Complaint: Chest Pain Stated Complaint: CHEST PAIN ED Provider: Skinny Hodge ED Midlevel Provider: Mp Crawley Discharge Problem: Chest pain, Angina pectoris, unstable Patient Disposition: Admitted As Inpatient Discharge Instructions Interventions: ED Discharge Assessment Last Done: 10/12/18 12:39 Discharge Problem: Chest pain Qualifiers: Chest pain type: unspecified Qualified Code(s): R07.9 - Chest pain, unspecified
--- NOTE | 2018-10-12 12:30 | History & Physical Report ---
Date of Service October 12, 2018 Assessment & Plan (1) Unstable angina: Patient had accelerated chest pain over the last few months now worse with only minor exertion. He has no elevation of his biomarkers he is slightly abnormal EKG he is currently pain-free with stable vital signs. Patient is typically anticoagulate with Xarelto last dose was the evening of 10/11. Patient will be brought to our facility with serial troponins checked to be on the monitor we will continue low-dose aspirin metoprolol as per his previous medication list. He did have an echocardiogram September 25 we will immediately reorder 1 cardiology consult be undertaken to see if this patient should progress towards catheterization over stress testing (2) Hypertension: For patient's hypertensive control he typically is on metoprolol which also serves as rate control (3) A-fib: Patient is anticoagulated with Xarelto 15 his age is 88 his weight is good and he has a creatinine clearance in the 50s and 60s per last recorded creatin ine clearance Xarelto will be held as per our pharmacy on-call we can consider initiating systemic any coagulation with heparin 24 hours after last dose of Xarelto. The patient's daughter will try to confirm that his last dose was in the evening as that Xarelto was suggested instructions are to take in the morning. He did not take any today for sure the patient believes he took some last evening. Also for low risk bleeding procedures they can be performed 24 hours after last dose of Xarelto and for high risk for any procedures it would be 48 hours after last dose of Xarelto. He will be up to the cardiology preference whether to do it any intervention if needed on 8 5 or 8 6 (4) H/O prostate cancer: Patient history of prostate cancer without lower urinary tract symptoms (5) GERD (gastroesophageal reflux disease): Patient typically takes ranitidine this will be continued (6) Parkinsons disease: Patient is usually takes Sinemet and pramipexole History of Present Illness Primary Care Provider: Nitin Barlow MD This 88-year-old white male presents with his daughter, for evaluation of chest pain that began this morning while walking around his house. Patient states he was getting himself ready for the day. He walked his dog for a few minutes, got dressed, and got himself breakfast. He had a pressure-like discomfort in his chest. He has had this numerous times over the last few months. He has not notified his plating machine operator, Dr. Montero. He states he usually gets it when walking uphill to the mailbox, but it resolves walking downhill to home. Also usually occurs with any activity after he has eaten a full meal. This morning it was a bit different in that it also radiated to his left forearm. He came to the ED for evaluation, and the pain resolved approximately half way here while in the car. He currently has no pain. He denies diaphoresis, nausea or vomiting. He describes the discomfort as pressure on his chest. He has a history of atrial fibrillation and PE and is on Xarelto he feel his last dose was the pm of 10/11/18. Also history of GERD. In the ER he has had no discomfort his troponin is negative his EKG is shows sinus rhythm but there is suggestion of lateral ST slight depression which is different from previous EKGs Allergies Allergy/AdvReac Type Severity Reaction Status Date / Time No Known Allergies Allergy Verified 10/12/18 10:12 Home Medications Home Medications Medication Instructions Recorded Confirmed Type atorvastatin 10 mg tablet 10 mg PO DAILY 07/18/18 10/12/18 History carbidopa 25 mg-levodopa 100 mg 0.5 tab PO DAILY 07/18/18 10/12/18 History tablet ipratropium bromide 0.03 % nasal 2 sprays INTNAS QAM 07/18/18 10/12/18 History spray pramipexole 0.25 mg tablet 0.25 mg PO HS 07/18/18 10/12/18 History metoprolol tartrate 50 mg tablet 25 mg PO BID #180 tab 09/09/18 10/12/18 Rx Caltrate 600 plus D 1 tab PO QAM 10/12/18 10/12/18 History Xarelto 15 mg PO QDD 10/12/18 10/12/18 History cyanocobalamin (vitamin B-12) 1,000 mcg PO QAM 10/12/18 10/12/18 History meloxicam 15 mg PO DAILY 10/12/18 10/12/18 History ranitidine HCl 150 mg PO BID 10/12/18 10/12/18 History ranolazine [Ranexa] 500 mg PO BID #60 tab 10/13/18 Rx Past Med/Surg History Family History Unknown Coronary heart disease Social History Communication Ability: Effective Visual Impairment: Limited Hearing Ability: Normal Resolution Rep Required: No Beliefs That Will Affect Care: None marital status: Current Living Situation: Alone current occupational status: retired Other Information That Helps Us Care for You: No Feels Safe at Home: Yes Safety Concerns: Feels Safe At This Time Smoking Status: Former smoker Do You Dip or Chew Tobacco: No ; Second Hand Exposure: No ; Tobacco Cessation Education Requested by Patient: No Hx Alcohol Use: Yes Alcohol type: beer Alcohol Intake Frequency: Holidays/Special Occasions Hx Substance Use: No Review of Systems Review of Systems: ROS: well nourished well developed. No double vision blurry vision No problems with speech or swallowing No palpitations, as per HPI chest pressure in the central left chest with exertion radiation of his left arm No Wheezing or breathing issues No abdominal pain nausea vomiting diarrhea No burning urine urine frequency or changes in color No focal joint pain or muscle pain No skin rashes or oral lesions does have skin irritation of his left cheek where he is a Band-Aid on it No unusual bruising or bleeding No focused back pain or numbness or loss of strength No changes in memory or confusion Physical Exam Physical Exam: The patient appeared well nourished and normally developed. Vital signs as documented. Head exam is. normocephalic, atraumatic he does have a Band-Aid on his left cheek with a small excoriated skin area Neck is without jugular venous distension, thyromegaly, or lymphademopathy Lungs are clear to auscultation and percussion. Cardiac exam reveals Rhythm is regular, systolic ejection murmur consistent with aortic stenosis Abdominal exam reveals normal bowel sounds, no masses, no organomegaly Extremities are nonedematous and both pedal pulses are present Neurologic exam is A&Ox3, no focal deficits, strength is equal bilateral Psychologically seems neither anxious or depressed Skin is warm Dry without bruises or lesions Results & Data Vital Signs (Past 12 Hours) Vital Signs Pulse Resp BP Pulse Ox 10/12/18 12:06 51 L 18 173/88 H 97 10/12/18 11:46 61 18 155/58 H 95 10/12/18 10:38 96 10/12/18 10:31 78 15 118/70 96 10/12/18 10:30 76 16 95 10/12/18 10:01 90 16 136/74 95 10/12/18 10:00 94 H 17 94 10/12/18 09:58 95 H 16 95 10/12/18 09:55 91 H 16 150/80 H 96 10/12/18 09:48 90 20 153/83 H 96 EKG shows normal sinus rhythm there is a suggestion of some lateral ST depression in V3 through V6 this is about a half of the small box Chest x-rays without active disease PG Care Time/CCT Total # of Minutes Spent Total Time Spent with Patient: Total time spent is greater than 50% in coordination of care (as documented) at patient's floor/unit and/or counseling patient:
[2018-10-12] MEDS ORDERED: ONDANSETRON INJ 2 MG/ML 2 ML VIAL IV PRN ×2 (12:53→13:48)
[2018-10-12] MEDS ORDERED: NITROGLYCERIN SL 0.4 MG/TAB TAB SL PRN ×2 (12:53→13:49)
[2018-10-12] MEDS ORDERED: POLYETHYLENE (MIRALAX) 17 GM PACK PO PRN ×2 (12:53→13:48)
[2018-10-12] MEDS ORDERED: ACETAMINOPHEN 325 MG TAB PO PRN ×2 (12:53→13:51)
[2018-10-12] MEDS ORDERED: ALUMINUM/MAGNESIUM SUSP 30 ML UDC PO PRN ×2 (12:53→13:50)
[2018-10-12] MEDS ORDERED: HEPARIN SODIUM/DEXTROSE 25,000 UNITS/500 ML BAG IV SCH (12:53)
[2018-10-12] MEDS ORDERED: IPRATROPIUM BROMIDE NASAL SPRAY 0.06% 15ML NAE PRN (13:15)
[2018-10-12] MEDS ORDERED: CARBIDOPA/LEVODOPA 25/100MG TAB PO SCH (14:00)
[2018-10-12] MEDS: CARBIDOPA/LEVODOPA 25/100MG TAB PO SCH (14:07)
[2018-10-12 14:24] LABS: Partial Thromboplastin Time 27.2 Seconds (21.0-31.0)
[2018-10-12] MEDS ORDERED: Heparin IV Standard *NO* Bolus IV SCH (15:00)
--- NOTE | 2018-10-12 15:20 | Emergency Department Note ---
ED Visit Note This patient was seen by Mp Crawley PA-C. Please of her to his note. I have also independently evaluated the patient, performed a physical exam and history as well as review the lab data. I talked the patient and his daughter who is at the bedside. The patient had an episode today where he had chest pressure rating to his left arm. Over the last 3 weeks, he has had intermittent chest pain when he exerts himself and walks up an incline to get the mail. he is fine when he rest and goes back down the incline. He has not been evaluated for this before and has no known history of cardiac disease or angina prior. The symptoms today got better after he rested. His EKG does show some ST abnormalities laterally without elevation but they do appear to be somewhat depressed compared to the old ones. His troponin is initially negative. Chest x-ray does not show congestive heart failure, pneumonia, pneumothorax. I do think he needs to be admitted/observed. he was given aspirin here and he is been pain-free. I am concerned that he does have unstable angina and have consulted the hospitalist to see him .
[2018-10-12] MEDS ORDERED: PRAMIPEXOLE DIHYDROCHLO 0.25 MG TAB PO SCH (21:00)
[2018-10-12] MEDS ORDERED: Heparin Adult STANDARD Wt-Based Dextrose 5% 25,000 units/500 mL IV SCH (21:00)
[2018-10-12] MEDS: METOPROLOL TARTRATE 25 MG TAB PO SCH (21:15)
[2018-10-13 03:58] LABS: BUN Creatinine Ratio 24.6 (10-20); Calcium 7.6 mg/dl (8.5-10.1); Creatinine Clr Calc Pharmacy 60.2 ml/min; Est GFR (African American) 80.5; Est GFR (Non-African American) 69.4; Potassium 3.8 mmol/L (3.5-5.1)
[2018-10-13 04:02] LABS: Partial Thromboplastin Ratio 2.1
[2018-10-13 04:48] LABS: Partial Thromboplastin Time 56.5 Seconds (21.0-31.0)
[2018-10-13] MEDS: METOPROLOL TARTRATE 25 MG TAB PO SCH (08:02)
[2018-10-13] MEDS: CARBIDOPA/LEVODOPA 25/100MG TAB PO SCH (08:02)
[2018-10-13] MEDS ORDERED: ASPIRIN 81 MG ECTAB PO SCH ×2 (09:00)
[2018-10-13] MEDS ORDERED: MELOXICAM 7.5 MG TAB PO SCH (09:00)
[2018-10-13] MEDS ORDERED: ATORVASTATIN 10 MG TAB PO SCH (09:00)
--- NOTE | 2018-10-13 12:53 | Cardiology Consultation ---
Date of Consultation October 13, 2018 Assessment & Plan (1) Chest pain: The patient's description of exertional chest discomfort likely represents angina pectoris. As above, we have had a long discussion regarding aggressive versus conservative treatment. Realizing his advanced age and sedentary lifestyle, the patient, his daughter, and I have agreed that a conservative approach would be most appropriate initially. We will undertake a trial of ranolazine 500 mg b.i.d. (2) Aortic stenosis: Mild to moderate degree on his echocardiogram in October 2015. Valve area was calculated 1.6 cm2. (3) Paroxysmal atrial fibrillation: No recent recurrence to the best of his knowledge. Tolerating rate control and long-term anticoagulation without difficulty. (4) Hypertension: Adequate control on current medical regimen. (5) Hypercholesterolemia: Continue atorvastatin. History of Present Illness Attending Physician: Karl Brewer MD History of Present Illness Mr. Benitez is an 88-year-old admitted yesterday with a chest pain syndrome. Discussed lesions ordered to assist in his management. Of note, patient well known to me from the outpatient setting. The patient was in his usual state of health until several months ago when he began to note substernal chest discomfort when walking up a grade to his mailbox. There were no other associated symptoms such as shortness of breath, n ausea, vomiting, or diaphoresis. The discomfort resolves with rest, or walking back down the hill to his home. Yesterday, while doing some light chores around his home, he again developed substernal chest discomfort. Total duration of discomfort was approximately 30 minutes. This was quite concerning and therefore, he presented to the emergency room for further care. Initial troponin level was undetectable, and his EKG noted only nonspecific ST changes. We have had a long discussion regarding the evaluation of his presumed angina pectoris. The patient his daughter not interested in an aggressive workup at this time. We have discussed a trial of ranolazine. 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 No tobacco Rare alcohol Family History Father age 47 of an [employer] Allergies Allergy/AdvReac Type Severity Reaction Status Date / Time No Known Allergies Allergy Verified 10/12/18 10:12 Home Medications Home Medications Medication Instructions Recorded Confirmed Type atorvastatin 10 mg tablet 10 mg PO DAILY 07/18/18 10/12/18 History carbidopa 25 mg-levodopa 100 mg 0.5 tab PO DAILY 07/18/18 10/12/18 History tablet ipratropium bromide 0.03 % nasal 2 sprays INTNAS QAM 07/18/18 10/12/18 History spray pramipexole 0.25 mg tablet 0.25 mg PO HS 07/18/18 10/12/18 History metoprolol tartrate 50 mg tablet 25 mg PO BID #180 tab 09/09/18 10/12/18 Rx Caltrate 600 plus D 1 tab PO QAM 10/12/18 10/12/18 History Xarelto 15 mg PO QDD 10/12/18 10/12/18 History cyanocobalamin (vitamin B-12) 1,000 mcg PO QAM 10/12/18 10/12/18 History meloxicam 15 mg PO DAILY 10/12/18 10/12/18 History ranitidine HCl 150 mg PO BID 10/12/18 10/12/18 History ranolazine [Ranexa] 500 mg PO BID #60 tab 10/13/18 Rx Patient History Family History Unknown Coronary heart disease Social History Communication Ability: Effective Visual Impairment: Limited Hearing Ability: Normal Plant Operations Coordinator Required: No Beliefs That Will Affect Care: None marital status: Current Living Situation: Alone current occupational status: retired Other Information That Helps Us Care for You: No Feels Safe at Home: Yes Safety Concerns: Feels Safe At This Time Smoking Status: Former smoker Do You Dip or Chew Tobacco: No ; Second Hand Exposure: No ; Tobacco Cessation Education Requested by Patient: No Hx Alcohol Use: Yes Alcohol type: beer Alcohol Intake Frequency: Holidays/Special Occasions Hx Substance Use: No Physical Exam Physical Exam: In general this is a well-developed well-nourished white male in no acute distress. HEENT exam is negative. Neck is supple with full carotid upstrokes. There are no carotid bruits or transmitted murmurs. Jugular venous pressure is flat at 90. There is no thyromegaly. Cardiovascular exam reveals a regular rhythm with a normal S1 and S2. There is a 2/6 crescendo decrescendo systolic murmur heard loudest at the base. Lungs are clear without rales, rhonchi, or wheezes. Abdomen is soft and nontender without bruits. Extremities reveal intact radial artery and posterior tibial pulses bilaterally. There is trace pretibial edema. Results & Data Vital Signs (Past 12 Hours) Vital Signs Temp Pulse Resp BP BP Pulse Ox 10/13/18 11:50 36.9 C 62 18 150/79 H 125/80 95 10/13/18 11:23 62 18 125/80 95 10/13/18 06:42 36.9 C 57 L 18 150/79 H 96 10/13/18 03:46 36.4 C L 54 L 19 136/74 94 Laboratory Results CBC notes hemoglobin 13.1, hematocrit 30.1, white count 12.78, and platelet count [id number]. Electrolytes note a sodium of 141, potassium 3.8, chloride 109, bicarb 29, BUN 24, creatinine 0.97, glucose of 102. Initial troponin was undetectable less than 0.015 with follow-up values of 0.048, 0.043, and 0.036. Diagnostic Findings Initial EKG noted normal sinus rhythm and nonspecific ST and T-wave abnormality. Chest x-ray shows no acute disease. PG Care Time/CCT Total # of Minutes Spent Total Time Spent with Patient: Total time spent is greater than 50% in coordination of care (as documented) at patient's floor/unit and/or counseling patient: (1) Chest pain Chest pain type: unspecified Qualified Code(s): R07.9 - Chest pain, unspecified
--- NOTE | 2018-10-13 15:24 | Discharge Summary ---
Date of Service October 13, 2018 Admission HPI Per Admitting Provider This 88-year-old white male presents with his daughter, for evaluation of chest pain that began this morning while walking around his house. Patient states he was getting himself ready for the day. He walked his dog for a few minutes, got dressed, and got himself breakfast. He had a pressure-like discomfort in his chest. He has had this numerous times over the last few months. He has not notified his manager database administration, Dr. Montero. He states he usually gets it when walking uphill to the mailbox, but it resolves walking downhill to home. Also usually occurs with any activity after he has eaten a full meal. This morning it was a bit different in that it also radiated to his left forearm. He came to the ED for evaluation, and the pain resolved approximately half way here while in the car. He currently has no pain. He denies diaphoresis, nausea or vomiting. He describes the discomfort as pressure on his chest. He has a history of atrial fibrillation and PE and is on Xarelto he feel his last dose was the pm of 10/11/18. Also history of GERD. In the ER he has had no discomfort his troponin is negative his EKG is shows sinus rhythm but there is suggestion of lateral ST slight depression which is d ifferent from previous EKGs Principal Diagnosis unstable angina, pt opted for medical management over risk stratification Discharge Exam Constitutional well developed and average body habitus Eyes no conjunctival abnormality and no scleral abnormality Neck normal visual inspection and trachea midline Respiratory normal respiratory effort; no respiratory distress Auscultation: lungs clear to auscultation bilaterally Cardiovascular RRR, no murmur, no edema Gastrointestinal (Abdomen) normal bowel sounds, soft, nontender, no hepatosplenomegaly Musculoskeletal no cyanosis or clubbing, extremities motor strength 5/5 Discharge Data Allergies Allergy/AdvReac Type Severity Reaction Status Date / Time No Known Allergies Allergy Verified 10/12/18 10:12 Consultations 10/12/18 13:39 Consult Cardiology Routine 10/12/18 13:45 Consult Case Management - Discharge Planning Routine Hospital Course (1) Unstable angina: Patient had accelerated chest pain over the last few months now worse with only minor exertion. He has no elevation of his biomarkers Patient is typically anticoagulate with Xarelto l After discussion and evaluation by cardiology, Dr. Montero, the patient felt he wished to proceed with medical management and over invasive possibilities to risk stratify his chest discomfort. Subsequently Dr. Montero is recommended beginning Ranexa therapy but also will continue low-dose aspirin metoprolol as per his previous medication list. (2) Hypertension: For patient's hypertensive control he typically is on metoprolol which also serves as rate control (3) A-fib: Patient is anticoagulated with Xarelto 15 (4) H/O prostate cancer: Patient history of prostate cancer without lower urinary tract symptoms (5) GERD (gastroesophageal reflux disease): Patient typically takes ranitidine this will be continued (6) Parkinsons disease: Patient is usually takes Sinemet and pramipexole Total Time Total Time Spent Total Time Spent (In Minutes): greater than 30 minutes were required to prepare discharge Discharge Plan Discharge Items Patient Disposition: Home - Home Health Services Reason For Visit: CHEST PAIN Discharge Diagnosis: chest pain, possible angina Discharge Goals: Decrease discomfort, Diagnostic testing and Improve disease con trol Activity: As commented below Activity Comment: gradually increase Non-emergency contact: Statistician Mathematical Call non-emergency contact if: you have any medication questions Follow-up/Referrals: Nitin Barlow MD [Primary Care Provider] - Diet: Heart Healthy Addtl Provider Instructions: Please slowly increase your activity slowly and do not reach full activity until Dr Montero sees you in follow up and releases you to full activity Prescriptions: New ranolazine [Ranexa] 500 mg tablet extended release 12 hr 500 mg PO BID Qty: 60 RF: 5 Continued atorvastatin [Lipitor] 10 mg tablet 10 mg PO DAILY RF: 0 carbidopa-levodopa [Sinemet] 25-100 mg tablet 0.5 tab PO DAILY RF: 0 ipratropium bromide 0.03 % spray,non-aerosol 2 sprays INTNAS QAM RF: 0 pramipexole 0.25 mg tablet 0.25 mg PO HS RF: 0 metoprolol tartrate [Lopressor] 50 mg tablet 25 mg PO BID Qty: 180 RF: 3 meloxicam 15 mg tablet 15 mg PO DAILY RF: 0 cyanocobalamin (vitamin B-12) 1,000 mcg Tablet 1,000 mcg PO QAM RF: 0 ranitidine HCl 150 mg Tablet 150 mg PO BID RF: 0 Xarelto 15 mg tablet 15 mg PO QDD RF: 0 Caltrate 600 plus D 600 mg (1,500 mg)-800 unit Tablet,Chewable 1 tab PO QAM RF: 0 Stand-Alone Forms: [facility] Discharge Orders: Discharge Order (Routine); Ordered 10/13/18 Ordered By: Karl Brewer Admission Data Admit Date/Time: 10/12/18 12:04 Attending Provider: Karl Brewer Admit Provider: Karl Brewer Primary Care Provider: Nitin Barlow Other Providers: Dominick Montero Service: Telemetry Other Interventions: Discharge Summary Assessment (RN) Last Done: 10/13/18 11:50 DC Date/Time DO NOT enter until pt leaves facility: 10/13/18 12:39
== END 2018-10-13 12:39 | disposition home health service (06) ==
LOC: 2S 09:43 → ED 09:43 → 2S 12:39

== ENCOUNTER 2018-11-29 07:09 | Inpatient (IN) ==
[2018-11-29] MEDS ORDERED: ONDANSETRON INJ 2 MG/ML 2 ML VIAL IV STA (07:28)
[2018-11-29] MEDS ORDERED: SODIUM CHLORIDE 0.9% 1000ML 1,000 ML IV SCH (07:30)
[2018-11-29 07:48] LABS: Basophils # (auto) 0.02 K/uL (0-0.2); Basophils % (auto) 0.3 %; Eosinophils % (auto) 1.6 %; Hematocrit (blood only) 40.5 % (42-52); Hemoglobin 14.1 g/dL (14.0-18.0); Immature Granulocytes # (auto) 0.01 K/uL (0.00-0.02); Immature Granulocytes % (auto) 0.2 %; Lymphocytes # (auto) 1.57 K/uL (1.2-3.4); Lymphocytes % (auto) 24.9 %; Mean Corpuscular Hemoglobin 30.9 pg (25-34); Mean Corpuscular Hgb Conc 34.8 g/dL (32-36); Mean Corpuscular Volume 88.6 fL (80-100); Mean Platelet Volume 9.6 fL (7.4-10.4); Monocytes # (auto) 0.84 K/uL (0.11-0.59); Monocytes % (auto) 13.3 %; Neutrophils # (auto) 3.76 K/uL (1.4-6.5); Neutrophils % (auto) 59.7 %; Platelet Count 182 K/uL (130-400); RDW Coefficient of Variation 14.8 % (11.5-14.5); Red Blood Count 4.57 M/uL (4.7-6.1)
--- NOTE | 2018-11-29 07:54 | XRay Report ---
XR chest 1V portable CLINICAL HISTORY: Abdominal pain. COMPARISON STUDY: Chest radiograph October 12, 2018. FINDINGS: Lung volumes are normal. There is no pneumothorax or pleural effusion. Evidence for pulmona ry edema. Minimal left basilar opacity favors atelectasis. Cardiac size is normal. Mediastinal contou rs are unremarkable. IMPRESSION: Minimal left basilar opacity which favors atelectasis. Electronically signed by: Andriy House M.D. 11/29/2018 7:52 AM
[2018-11-29 08:00] LABS: INR 1.2 (0.9-1.1); Partial Thromboplastin Ratio 1.1; Partial Thromboplastin Time 30.5 Seconds (21.0-31.0); Prothrombin Time 12.3 Seconds (9.0-12.0)
[2018-11-29 08:05] LABS: Blood Urea Nitrogen 19 mg/dl (7-18); Carbon Dioxide 25 mmol/L (21-32); Chloride 100 mmol/L (98-107); Est GFR (African American) 66.2; Est GFR (Non-African American) 57.1; Potassium 3.7 mmol/L (3.5-5.1); Sodium 133 mmol/L (136-145)
[2018-11-29 08:06] LABS: Alanine Aminotransferase 19 U/L (12-78); Albumin Level 3.7 gm/dl (3.4-5.0); Aspartate Aminotransferase 15 U/L (15-37); BUN Creatinine Ratio 16.7 (10-20); Calcium 8.9 mg/dl (8.5-10.1); Creatinine Clr Calc Pharmacy 50.8 ml/min; Glucose 108 mg/dl (70-99); Lipase 47 U/L (73-393)
[2018-11-29 08:10] LABS: Albumin Globulin Ratio 1.1 (0.9-2); Alkaline Phosphatase 71 U/L (45-117); Bilirubin,Total 0.8 mg/dl (0.2-1); Globulin 3.2 gm/dl (2.5-4.0); Total Protein 6.9 gm/dl (6.4-8.2); Troponin I < 0.015 ng/ml (0-0.045)
[2018-11-29 08:14] LABS: iSTAT Creatinine 1.2 mg/dl (0.6-1.3); iSTAT Hemoglobin 13.3 g/dl (14.0-18.0); iSTAT Ionized Calcium 1.1 mmol/l (1.12-1.32); iSTAT Potassium 4.1 mEq/L (3.3-5.0)
[2018-11-29] MEDS ORDERED: IOVERSOL 100ml IV PRN (08:18)
--- NOTE | 2018-11-29 08:45 | CT Scan Report ---
CT OF THE ABDOMEN AND PELVIS WITH CONTRAST CLINICAL HISTORY: Vomiting. History of obstruction. COMPARISON STUDY: CT of the abdomen and pelvis June 12, 2016. Abdominal series June 20, 2016. TECHNIQUE: Following IV administration of 94 mL of Optiray-320, axial images of the abdomen and pelvi s were obtained from the lung bases to the proximal femurs. Images were reviewed in the axial, sagitt al, and coronal planes. IV contrast was administered without complication. Automated exposure contro l was utilized for the study. A dose lowering technique was utilized adhering to the principles of A DAYANA. CT DOSE: 769.12 mGy.cm FINDINGS: Prominent thoracic lymph nodes are unchanged and CT of February 26, 2013. There are gallsto harry within the gallbladder without evidence for acute cholecystitis. The liver, spleen, adrenal gland s and pancreas are unremarkable as are the kidneys. There is moderate right renal atrophy. There is n o hydronephrosis. No pneumatosis, free air or portal venous gas is present. Note is made of a 3.2 cm infrarenal abdominal aortic and chest. The mid small bowel is mildly dilated and fluid-filled. Severa l bowel containing ventral hernias are noted. No, these do not appear to result in the bowel obstruct ion. A definite transition point is not identified however the distal small bowel is decompressed. Th ere is a possible transition point within the anterior mid abdomen on image 219. Fat-containing left inguinal hernia is noted. There is sigmoid diverticulosis or evidence for acute diverticulitis. No redd spicious osseous lesions are noted. There is no abdominal or pelvic lymphadenopathy. Major vasculatur e is patent. Trace ascites within the hernia sac is noted. IMPRESSION: 1. Mildly dilated fluid-filled mid small bowel with decompressed distal small bowel consistent with a partial small bowel obstruction. Several bowel containing ventral hernias which do not appear to res ult in the bowel obstruction. Possible transition point within the anterior mid abdomen, as described above. 2. 3.2 cm infrarenal abdominal aortic aneurysm. 3. Cholelithiasis. 4. Fat-containing left inguinal hernia. Electronically signed by: Andriy House M.D. 11/29/2018 8:42 AM
--- NOTE | 2018-11-29 09:37 | Emergency Department Note ---
Entered by Cathleen Rodriguez acting as a scribe for Dominick Lynn DO History of Present Illness General Chief complaint: Vomiting Stated complaint: vomiting,[facility] Source: patient and family (daughter) History of Present Illness Onset (ago): day(s) 1 Location: abdomen Pain Consistency: + other (persistent) Quality: + other (vomiting) Associated symptoms: + denies other symptoms (abdominal pain, headache, fever, weakness or swelling in arms or legs, black or bloody stools, or unusual abd ominal distension) and + other (dark brown vomit) The patient is a 88 year old male that is presenting to the Emergency Room with complaints of persistent vomiting that started yesterday afternoon. The patient reports that he has vomited 4-5 times since the onset of his symptoms. He states that the vomit is dark brown in color and is big and explosive. He denies any abdominal pain, headache, fever, weakness or swelling in arms or legs, black or bloody stools, or unusual abdominal distension. His daughter states that the patients abdomen does appear more distended to her. The patient reports that he has not had a bowel movement in 4 days. He states that he had similar symptoms in 2017 and notes that he was found to have a small bowel obstruction at that time. He reports that the obstruction was secondary to a constriction which was cut by Dr. Cleveland. He denies have a bowel resection performed at that time. He denies any history of kidney issues or heart failure. The patient notes that he takes Xarelto as he was found to be in atrial fibrillation during the 2017 surgery. He states that he has a history of blood clots as well. He reports that he has a history of intermittent constipation secondary to Dulcolax use following the surgery. The patient notes that he drinks alcohol occasionally and states that he has 1 beer per sitting. He denies any tobacco use. He states that he did not take any of his medications last night, including his Xarelto, due to his vomiting. Home Medications Home Medications Medication Instructions Recorded Confirmed Type atorvastatin 10 mg tablet 10 mg PO DAILY 07/18/18 11/29/18 History carbidopa 25 mg-levodopa 100 mg 0.5 tab PO BID 07/18/18 11/29/18 History tablet pramipexole 0.25 mg tablet 0.25 mg PO HS 07/18/18 11/29/18 History metoprolol tartrate 50 mg tablet 25 mg PO BID #180 tab 09/09/18 11/29/18 Rx Caltrate 600 plus D 1 tab PO QAM 10/12/18 11/29/18 History cyanocobalamin (vitamin B-12) 1,000 mcg PO QAM 10/12/18 11/29/18 History ranitidine HCl 150 mg PO BID 10/12/18 11/29/18 History ranolazine [Ranexa] 500 mg PO BID #60 tab 10/13/18 11/29/18 Rx cholecalciferol (vitamin D3) 2,000 2,000 units PO DAILY tab 10/14/18 11/29/18 History unit tablet rivaroxaban 15 mg tablet 15 mg PO DAILY #90 tab 11/17/18 11/29/18 Rx tamsulosin 0.4 mg capsule 0.4 mg PO DAILY #90 cap 11/26/18 11/29/18 Rx ipratropium bromide 2 spray INTRANASAL BID 11/29/18 11/29/18 History Allergies Allergy/AdvReac Type Severity Reaction Status Date / Time No Known Allergies Allergy Verified 11/29/18 08:08 Past Med/Surg History Family History Unknown Coronary heart disease Social History Preferred Language: Ukrainian Communication Ability: Effective Visual Impairment: Limited Hearing Ability: Normal Shipping Assistant Required: No Beliefs That Will Affect Care: None marital status: Current Living Situation: Family Current Living Situation Comment: living with dtr current occupational status: retired Other Information That Helps Us Care for You: No Feels Safe at Home: Yes Safety Concerns: Feels Safe At This Time Smoking Status: Former smoker Second Hand Exposure: No ; Hx Alcohol Use: Yes Alcohol type: beer Alcohol Intake Frequency: Holidays/Special Occasions Hx Substance Use: No Review of Systems See HPI for pertinent positives & negatives. and A total of 10 systems reviewed and were otherwise negative Physical Exam Vital Signs Vital Signs - 24 hr 11/29/18 07:17 11/29/18 07:45 11/29/18 09:10 Temperature 36.5 C Temperature Source Oral Sepsis Recent Fever Within 48 Hours No Sepsis Action Taken by Nursing No Action Required Pulse Rate 98 H Pulse Rate [Apical] 77 Respiratory Rate 16 16 Respiratory Effort / Characteristics Non-Labored Spontaneous Respiratory Depth Normal Blood Pressure 117/83 Blood Pressure [Left Arm] 138/85 Blood Pressure Mean 94 Blood Pressure Mean [Left Arm] 102 Blood Pressure Position Sitting Pulse Oximetry 94 95 96 Oxygen Delivery Method Room Air Room Air Room Air 11/29/18 09:50 Temperature Temperature Source Sepsis Recent Fever Within 48 Hours Sepsis Action Taken by Nursing Pulse Rate Pulse Rate [Apical] Respiratory Rate Respiratory Effort / Characteristics Respiratory Depth Blood Pressure Blood Pressure [Left Arm] Blood Pressure Mean Blood Pressure Mean [Left Arm] Blood Pressure Position Pulse Oximetry Oxygen Delivery Method Room Air GENERAL: Patient is awake, alert, and in no acute distress.Patient is resting comfortably and showing no signs of anxiety EYES: The conjunctivae are clear. The pupils are round and reactive. EARS, NOSE, MOUTH AND THROAT: The nose is without any evidence of any deformity. Mucous membranes are moist.Tongue is midline NECK: The neck is nontender and supple. RESPIRATORY: Normal respiratory effort is noted. There is no evidence of wheezing rhonchi or rales to auscultation. CARDIOVASCULAR: Regular rate and rhythm noted. There no murmurs rubs or gallops normal S1 normal S2 GASTROINTESTINAL: Moderately distended with mild epigastric tenderness to palpation. No guarding or rigidity. MUSCULOSKELETAL/EXTREMITIES: There is no evidence of gross deformity. Full range of motion is noted in the hips and shoulders. SKIN: There is no obvious evidence of any rash. There are no petechiae, pallor or cyanosis noted. NEUROLOGIC: Patient is awake alert and oriented x3. Course 0723:The patient was evaluated in room A10. A complete history and physical examination was performed. 0910: I discussed the patient's case with Dr. Gutiérrez, General Surgery, who recommended the patient be evaluated by a hospitalist. He states that he will see the patient in the hospital for further evaluation. 0912: I discussed the patient's case with Dr. Agarwal, [facility], who will evaluate the patient for further management and care. 0915: Upon reevaluation, the patient is resting comfortably. I discussed laboratory and radiographic results with the patient. He verbalized agreement of the treatment plan. The patient will be evaluated for further management and care. Administered Medications Carbidopa/Levodopa (Sinemet 25/100 Mg) 0.5 tab PO BID [facility] Stop: 12/29/18 20:59 Last Admin: 11/29/18 20:51 Dose: 0.5 tab Documented by: [id number] Sodium Chloride (Nss 1000ml) 1,000 mls @ 80 mls/hr IV .[id number] [facility] Stop: 12/29/18 11:17 Last Admin: 11/29/18 23:48 Dose: 80 mls/hr Documented by: [id number] Infusion: 11/29/18 23:48 Dose: 80 mls/hr Documented by: [id number] Admin: 11/29/18 11:34 Dose: 80 mls/hr Documented by: [id number] Ioversol (Optiray 320 100ml) 94 ml IV ONCE PRN PRN Reason: Interaction Checking Stop: 12/03/18 08:17 Last Admin: 11/29/18 08:18 Dose: 94 ml Documented by: [id number] Metoprolol Tartrate (Lopressor) 25 mg PO BID [facility] Stop: 12/29/18 20:59 Last Admin: 11/29/18 20:52 Dose: 25 mg Documented by: [id number] Miscellaneous (Order Awaiting Action) 1 ea N/A QS [facility] Stop: 12/29/18 15:59 Last Admin: 11/29/18 23:48 Dose: Not Given Documented by: [id number] Admin: 11/29/18 16:11 Dose: Not Given Documented by: [id number] Ondansetron HCl (Zofran) 4 mg IV Q6H PRN PRN Reason: Nausea Stop: 12/29/18 11:17 Last Admin: 11/29/18 23:51 Dose: 4 mg Documented by: [id number] Pramipexole Dihydrochloride (Mirapex) 0.25 mg PO HS [facility] Stop: 12/29/18 20:59 Last Admin: 11/29/18 20:51 Dose: 0.25 mg Documented by: [id number] Ranitidine HCl (Zantac) 150 mg PO BID [facility] Stop: 12/29/18 20:59 Last Admin: 11/29/18 20:51 Dose: 150 mg Documented by: [id number] Ranolazine (Ranexa) 500 mg PO BID [facility] Stop: 12/29/18 20:59 Last Admin: 11/29/18 20:52 Dose: 500 mg Documented by: [id number] Discontinued Medications Sodium Chloride (Nss 1000ml) 1,000 mls @ 999 mls/hr IV .Q1H1M [facility] Stop: 11/29/18 08:30 Last Infusion: 11/29/18 09:12 Dose: 0 mls/hr Documented by: [id number] Admin: 11/29/18 08:06 Dose: 999 mls/hr Documented by: [id number] Ondansetron HCl (Zofran) 4 mg IV NOW STA Stop: 11/29/18 07:29 Last Admin: 11/29/18 08:06 Dose: 4 mg Documented by: [id number] Medical Decision Making Differential Diagnosis Differential diagnosis: Etiologies such as gastroenteritis, food borne illness, infections, appendicit is, diverticulitis, inflammatory bowel disease, obstruction, GI bleed, biliary pathology, cardiac process, intracranial process, as well as others were entertained. Medical Records Attestation: I reviewed the patient's medical records. Home Medications Current Medication List: was personally reviewed by me Laboratory Data Attestation: I reviewed the patient's lab results. Result diagrams: 11/29/18 07:41 11/29/18 07:41 Lab Results 11/29/18 11/29/18 11/29/18 Range/Units 07:41 07:41 07:41 WBC 6.30 (4.8-10.8) K/uL RBC 4.57 L (4.7-6.1) M/uL Hgb 14.1 (14.0-18.0) g/dL POC Hgb (14.0-18.0) g/dl Hct 40.5 L (42-52) % POC Hct (42-52) % MCV 88.6 (80-100) fL MCH 30.9 (25-34) pg MCHC 34.8 (32-36) g/dL RDW Std Deviation 48.0 H (36.4-46.3) fL RDW Coeff of Etsefania 14.8 H (11.5-14.5) % Plt Count 182 (130-400) K/uL MPV 9.6 (7.4-10.4) fL Immature Gran % (Auto) 0.2 % Neut % (Auto) 59.7 % Lymph % (Auto) 24.9 % [place] % (Auto) 13.3 % Eos % (Auto) 1.6 % Baso % (Auto) 0.3 % Immature Gran # (Auto) 0.01 (0.00-0.02) K/uL Neut # (Auto) 3.76 (1.4-6.5) K/uL Lymph # (Auto) 1.57 (1.2-3.4) K/uL [place] # (Auto) 0.84 H (0.11-0.59) K/uL Eos # (Auto) 0.10 (0-0.5) K/uL Baso # (Auto) 0.02 (0-0.2) K/uL PT 12.3 H (9.0-12.0) Seconds INR 1.2 H (0.9-1.1) APTT 30.5 (21.0-31.0) Seconds PTT Ratio 1.1 POC Sodium (135-144) mEq/L Sodium 133 L (136-145) mmol/L POC Potassium (3.3-5.0) mEq/L Potassium 3.7 (3.5-5.1) mmol/L POC Chloride (101-112) mEq/L Chloride 100 (98-107) mmol/L Carbon Dioxide 25 (21-32) mmol/L POC Total CO2 (24-31) mEq/l Anion Gap 8.0 (3-11) POC Anion Gap (16-25) mmol/L POC BUN (7-18) mg/dl BUN 19 H (7-18) mg/dl Creatinine 1.14 (0.6-1.4) mg/dl POC Creatinine (0.6-1.3) mg/dl Est Cr Clr Drug Dosing 50.8 ml/min Est GFR ( Amer) 66.2 Est GFR (Non-Af Amer) 57.1 BUN/Creatinine Ratio 16.7 (10-20) Glucose 108 H (70-99) mg/dl POC Glucose (other) (70-99) mg/dl Calcium 8.9 (8.5-10.1) mg/dl POC Ioniz Calcium Lulú (1.12-1.32) mmol/l Total Bilirubin 0.8 (0.2-1) mg/dl AST 15 (15-37) U/L ALT 19 (12-78) U/L Alkaline Phosphatase 71 (45-117) U/L Troponin I < 0.015 (0-0.045) ng/ml Total Protein 6.9 (6.4-8.2) gm/dl Albumin 3.7 (3.4-5.0) gm/dl Globulin 3.2 (2.5-4.0) gm/dl Albumin/Globulin Ratio 1.1 (0.9-2) Lipase 47 L (73-393) U/L 11/29/18 Range/Units 08:02 WBC (4.8-10.8) K/uL RBC (4.7-6.1) M/uL Hgb (14.0-18.0) g/dL POC Hgb 13.3 L (14.0-18.0) g/dl Hct (42-52) % POC Hct 39 L (42-52) % MCV (80-100) fL MCH (25-34) pg MCHC (32-36) g/dL RDW Std Deviation (36.4-46.3) fL RDW Coeff of Estefania (11.5-14.5) % Plt Count (130-400) K/uL MPV (7.4-10.4) fL Immature Gran % (Auto) % Neut % (Auto) % Lymph % (Auto) % [place] % (Auto) % Eos % (Auto) % Baso % (Auto) % Immature Gran # (Auto) (0.00-0.02) K/uL Neut # (Auto) (1.4-6.5) K/uL Lymph # (Auto) (1.2-3.4) K/uL [place] # (Auto) (0.11-0.59) K/uL Eos # (Auto) (0-0.5) K/uL Baso # (Auto) (0-0.2) K/uL PT (9.0-12.0) Seconds INR (0.9-1.1) APTT (21.0-31.0) Seconds PTT Ratio POC Sodium 132 L (135-144) mEq/L Sodium (136-145) mmol/L POC Potassium 4.1 (3.3-5.0) mEq/L Potassium (3.5-5.1) mmol/L POC Chloride 97 L (101-112) mEq/L Chloride (98-107) mmol/L Carbon Dioxide (21-32) mmol/L POC Total CO2 25 (24-31) mEq/l Anion Gap (3-11) POC Anion Gap 15.0 L (16-25) mmol/L POC BUN 22 H (7-18) mg/dl BUN (7-18) mg/dl Creatinine (0.6-1.4) mg/dl POC Creatinine 1.2 (0.6-1.3) mg/dl Est Cr Clr Drug Dosing ml/min Est GFR ( Amer) Est GFR (Non-Af Amer) BUN/Creatinine Ratio (10-20) Glucose (70-99) mg/dl POC Glucose (other) 105 H (70-99) mg/dl Calcium (8.5-10.1) mg/dl POC Ioniz Calcium Lulú 1.10 L (1.12-1.32) mmol/l Total Bilirubin (0.2-1) mg/dl AST (15-37) U/L ALT (12-78) U/L Alkaline Phosphatase (45-117) U/L Troponin I (0-0.045) ng/ml Total Protein (6.4-8.2) gm/dl Albumin (3.4-5.0) gm/dl Globulin (2.5-4.0) gm/dl Albumin/Globulin Ratio (0.9-2) Lipase (73-393) U/L Imaging Data Radiologist's Impression: Radiology results as stated below per my review and the radiologist's interpretation: XR chest 1V portable CLINICAL HISTORY: Abdominal pain. COMPARISON STUDY: Chest radiograph October 12, 2018. FINDINGS: Lung volumes are normal. There is no pneumothorax or pleural effusion. Evidence for pulmonary edema. Minimal left basilar opacity favors atelectasis. Cardiac size is normal. Mediastinal contours are unremarkable. IMPRESSION: Minimal left basilar opacity which favors atelectasis. Electronically signed by: Andriy House M.D. 11/29/2018 7:[address] OF THE ABDOMEN AND PELVIS WITH CONTRAST CLINICAL HISTORY: Vomiting. History of obstruction. COMPARISON STUDY: CT of the abdomen and pelvis June 12, 2016. Abdominal series June 20, 2016. TECHNIQUE: Following IV administration of 94 mL of Optiray-320, axial images of the abdomen and pelvis were obtained from the lung bases to the proximal femurs. Images were reviewed in the axial, sagittal, and coronal planes. IV contrast was administered without complication. Automated exposure control was utilized for the study. A dose lowering technique was utilized adhering to the principles of ALARA. CT DOSE: 769.12 mGy.cm FINDINGS: Prominent thoracic lymph nodes are unchanged and CT of February 26, 2013. There are gallstones within the gallbladder without evidence for acute cholecystitis. The liver, spleen, adrenal glands and pancreas are unremarkable as are the kidneys. There is moderate right renal atrophy. There is no hydronephrosis. No pneumatosis, free air or portal venous gas is present. Note is made of a 3.2 cm infrarenal abdominal aortic and chest. The mid small bowel is mildly dilated and fluid-filled. Several bowel containing ventral hernias are noted. No, these do not appear to result in the bowel obstruction. A definite transition point is not identified however the distal small bowel is decompressed. There is a possible transition point within the anterior mid abdomen on image 219. Fat-containing left inguinal hernia is noted. There is sigmoid diverticulosis or evidence for acute diverticulitis. No suspicious o sseous lesions are noted. There is no abdominal or pelvic lymphadenopathy. Major vasculature is patent. Trace ascites within the hernia sac is noted. IMPRESSION: 1. Mildly dilated fluid-filled mid small bowel with decompressed distal small bowel consistent with a partial small bowel obstruction. Several bowel containing ventral hernias which do not appear to result in the bowel obstruction. Possible transition point within the anterior mid abdomen, as described above. 2. 3.2 cm infrarenal abdominal aortic aneurysm. 3. Cholelithiasis. 4. Fat-containing left inguinal hernia. Electronically signed by: Andriy House M.D. 11/29/2018 8:42 AM ECG Data Attestation: I personally reviewed and interpreted this ECG as follows: Indication: vomiting Rate (beats per minute): 89 Rhythm: sinus rhythm Findings: + 1st degree AV block and + Q waves (Inferior); no PAC, no PVC and no ectopy Comparison ECG Date: from (10/13/18) Change: no significant change Blood Pressure Blood Pressure Findings: Elevated blood pressure Blood Pressure Disposition: did not require urgent referral MDM Narrative The patient is an 88-year-old male who presented to the emergency department for an evaluation of nausea and vomiting. 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 I discussed the patient's laboratory and radiographic studies with him. He was treated with IV fluids and IV antiemetics in the emergency department. On subsequent reevaluation he was feeling much better. I discussed his case with the on-call general surgeon as well as the on-call [facility] hospitalist. I also discussed reevaluated the patient and his nausea was significantly improved. At this time I feel he would be a better candidate for inpatient management given the findings on CAT scan. The patient was agreeable with this plan. Impression & Plan Small bowel obstruction, Nausea & vomiting Discharge Plan Visit Data *Final* Discharge Date/Time: 11/29/18 10:40 Chief Complaint: Vomiting Stated Complaint: vomiting,[facility] ED Provider: Dominick Lynn Discharge Problem: Small bowel obstruction, Nausea & vomiting Patient Disposition: Admitted As Inpatient Discharge Instructions Interventions: ED Discharge Assessment Last Done: 11/29/18 10:40 Discharge Problem: Nausea & vomiting Qualifiers: Vomiting type: unspecified Vomiting Intractability: non-intractable Qualified Code(s): R11.2 - Nausea with vomiting, unspecified The scribe's documentation has been prepared under my direction and personally reviewed by me in its entirety. I confirm that the note above accurately reflects all work, treatment, procedures, and medical decision making performed by me.
[2018-11-29] MEDS ORDERED: ONDANSETRON INJ 2 MG/ML 2 ML VIAL IV PRN (11:18)
[2018-11-29] MEDS: SODIUM CHLORIDE 0.9% 1000ML 1,000 ML IV SCH ×2 (11:34→23:48)
--- NOTE | 2018-11-29 11:59 | History & Physical Report ---
Date of Service November 29, 2018 Assessment & Plan (1) SBO (small bowel obstruction): Admit med surg CT shows partial bowel obstruction NPO, gentle IVF Zofran Consult gen surg (2) A-fib: Continue metoprolol Hold Xeralto until seen by surgery Patient has a history of PE however this was provoked after a long car ride in 2013 - ok to hold blood thinners at this point (3) Hypertension: continue metoprolol (4) GERD (gastroesophageal reflux disease): continue ranitidine (5) Parkinsons disease: Continue Sinemet (6) Hyperlipidemia: continue statin (7) Angina pectoris, unstable: previously diagnosed - continue ranolazine (8) Abdominal aortic aneurysm: seen incidentally on CT - follow up outpatient (9) DVT prophylaxis: Xeralto on hold, SCDs History of Present Illness Mr. Benitez presented to the Emergency Department today due to nausea and vomiting. His daughter who is bedside and lives with him contributes to history. Mr. Benitez began having symptoms yesterday at 3:00 pm with vomiting dark brown emesis. He has not had a bowel movement in 4-5 days. He denies any other symptoms. No chest pain, sob, edema in his legs. Pmhx: SBO, a.fib on Xeralto, htn, bph, Parkinsons, unstable angina, Schatzki's ring, provoked PE in 2013, NIKOLAI, aortic stenosis Social: Quit smoking at age 21, has about a beer per week, daughter has recently come to live with him, Family: non contributory due to advanced age Primary Care Provider: Nitin Barlow MD Allergies Allergy/AdvReac Type Severity Reaction Status Date / Time No Known Allergies Allergy Verified 11/29/18 08:08 Home Medications Home Medications Medication Instructions Recorded Confirmed Type atorvastatin 10 mg tablet 10 mg PO DAILY 07/18/18 11/29/18 History carbidopa 25 mg-levodopa 100 mg 0.5 tab PO BID 07/18/18 11/29/18 History tablet pramipexole 0.25 mg tablet 0.25 mg PO HS 07/18/18 11/29/18 History metoprolol tartrate 50 mg tablet 25 mg PO BID #180 tab 09/09/18 11/29/18 Rx Caltrate 600 plus D 1 tab PO QAM 10/12/18 11/29/18 History cyanocobalamin (vitamin B-12) 1,000 mcg PO QAM 10/12/18 11/29/18 History ranitidine HCl 150 mg PO BID 10/12/18 11/29/18 History ranolazine [Ranexa] 500 mg PO BID #60 tab 10/13/18 11/29/18 Rx cholecalciferol (vitamin D3) 2,000 2,000 units PO DAILY tab 10/14/18 11/29/18 History unit tablet rivaroxaban 15 mg tablet 15 mg PO DAILY #90 tab 11/17/18 11/29/18 Rx tamsulosin 0.4 mg capsule 0.4 mg PO DAILY #90 cap 11/26/18 11/29/18 Rx ipratropium bromide 2 spray INTRANASAL BID 11/29/18 11/29/18 History Past Med/Surg History Family History Unknown Coronary heart disease Social History Preferred Language: Armenian Communication Ability: Effective Visual Impairment: Limited Hearing Ability: Normal Rotary Bar Operator Required: No Beliefs That Will Affect Care: None marital status: Current Living Situation: Family Current Living Situation Comment: living with dtr current occupational status: retired Other Information That Helps Us Care for You: No Feels Safe at Home: Yes Safety Concerns: Feels Safe At This Time Smoking Status: Former smoker Second Hand Exposure: No ; Hx Alcohol Use: Yes Alcohol type: beer Alcohol Intake Frequency: Holidays/Special Occasions Hx Substance Use: No Review of Systems Review of Systems: All systems reviewed & are unremarkable except as noted in HPI & below Physical Exam Physical Exam: General: no distress Eyes: normal inspection, PERLL Respiratory: chest non tender, clear to auscultation, normal breath sounds, no respiratory distress, no accessory muscle use Cardiac: regular rate and rhythm, no rub or gallop, systolic murmur RUSB 3/6, no edema, no jvd GI/: active bowel sounds, no abd pain or tenderness, soft, non distended, reducible ventral hernia Extremities: normal range of motion, normal strength, non tender Neuro:oriented x 3, moves all extremities Psych: alert, normal mood and affect Skin: normal color, dry Results & Data Vital Signs (Past 12 Hours) Vital Signs Temp Pulse Pulse Pulse Resp BP BP 11/29/18 11:24 36.3 C L 76 16 134/74 11/29/18 09:10 77 16 138/85 11/29/18 07:45 11/29/18 07:17 36.5 C 98 H 16 117/83 Pulse Ox 11/29/18 11:24 94 11/29/18 09:10 96 11/29/18 07:45 95 11/29/18 07:17 94 Code Status & VTE Plan VTE Prophylaxis Plan VTE Prophylaxis will be ordered: Yes Supervising Physician Co-Signing Physician Notes I supervised Leticia Lion NP on this patient's care. I examined the patient today independently of her. I discussed the plan of care with her with the plan being as written in her note except for any following changes/exceptions: None. 88-year-old male with history of Parkinson disease, A. fib, prior small bowel obstruction requiring ex lap who presents with partial SBO. Reports that symptoms began yesterday with dark brown emesis. He has not had a bowel movement in 4 to 5 days, but is passing flatus. He reports no abdominal pain presently. We will treat conservatively for now and can institute bowel regimen in 1 to 2 days as patient reports he rarely is able to pass bowel movements without Dulcolax. Presently nontoxic-appearing and feeling overall well. PG Care Time/CCT Total # of Minutes Spent Total Time Spent with Patient: Total time spent is greater than 50% in coordination of care (as documented) at patient's floor/unit and/or counseling patient:
[2018-11-29] MEDS: CARBIDOPA/LEVODOPA 25/100MG TAB PO SCH (20:51)
[2018-11-29] MEDS: PRAMIPEXOLE DIHYDROCHLO 0.25 MG TAB PO SCH (20:51)
[2018-11-29] MEDS: METOPROLOL TARTRATE 25 MG TAB PO SCH (20:52)
[2018-11-29] MEDS: RANOLAZINE 500 MG ER TAB PO SCH (20:52)
[2018-11-30 08:49] LABS: Basophils # (auto) 0.01 K/uL (0-0.2); Basophils % (auto) 0.2 %; Eosinophils # (auto) 0.11 K/uL (0-0.5); Eosinophils % (auto) 2.3 %; Hematocrit (blood only) 36.5 % (42-52); Hemoglobin 12.4 g/dL (14.0-18.0); Lymphocytes # (auto) 1.39 K/uL (1.2-3.4); Lymphocytes % (auto) 28.5 %; Mean Corpuscular Hemoglobin 30.8 pg (25-34); Mean Corpuscular Volume 90.6 fL (80-100); Mean Platelet Volume 9.2 fL (7.4-10.4); Monocytes % (auto) 14.3 %; Neutrophils # (auto) 2.67 K/uL (1.4-6.5); Neutrophils % (auto) 54.7 %; Platelet Count 167 K/uL (130-400); RDW Standard Deviation 50.2 fL (36.4-46.3); Red Blood Count 4.03 M/uL (4.7-6.1); White Blood Count 4.88 K/uL (4.8-10.8)
[2018-11-30] MEDS: CALCIUM 600MG + VIT D 400 IU TAB PO SCH (09:40)
[2018-11-30] MEDS: METOPROLOL TARTRATE 25 MG TAB PO SCH ×2 (09:40→20:53)
[2018-11-30] MEDS: TAMSULOSIN HCL 0.4 MG CAP PO SCH (09:40)
[2018-11-30] MEDS: ATORVASTATIN 10 MG TAB PO SCH (09:40)
[2018-11-30] MEDS: CYANOCOBALAMIN 500 MCG TABLET (VITAMIN B-12) PO SCH (09:40)
[2018-11-30] MEDS: CARBIDOPA/LEVODOPA 25/100MG TAB PO SCH ×2 (09:41→20:52)
[2018-11-30] MEDS: CHOLECALCIFEROL 1,000 UNITS TAB PO SCH (09:41)
[2018-11-30] MEDS: RANOLAZINE 500 MG ER TAB PO SCH ×2 (09:41→20:53)
[2018-11-30 09:52] LABS: BUN Creatinine Ratio 13.7 (10-20); Calcium 8.1 mg/dl (8.5-10.1); Creatinine Clr Calc Pharmacy 53.1 ml/min; Est GFR (African American) 69.9; Est GFR (Non-African American) 60.3; Potassium 4.3 mmol/L (3.5-5.1)
--- NOTE | 2018-11-30 10:15 | Surgery Consultation ---
Date of Consultation November 29, 2018 Assessment & Plan (1) Small bowel obstruction: This patient had a partial small bowel obstruction versus enteritis. I agree with conservative management. He does not need an NG tube immediately. He has begun to pass flatus. Hopefully he will begin to pass his bowels. I would keep him n.p.o. for now. History of Present Illness Reason for Consultation: Partial SBO Requesting Physician: SEBASTIAN Garcia Attending Physician: Ishmael De MD History of Present Illness I have been asked by SEBASTIAN Faria to evaluate this gentleman who presented to the emergency room with nausea and vomiting. He stated that he was driving and developed discomfort in his abdomen and had vomiting. He had had 4 episodes of vomiting after that. There was no hematemesis. He had not been passing flatus or having bowel movement. He had some crampy abdominal discomfort with it. That has resolved. He had not eaten any unusual. There is no one else sick at home. He had a partial small bowel resection. From his description it sounded as if he had a stricture. He thinks it was about 10 years ago. At the present time his abdomen which was distended has decreased. He has begun to pass some flatus. He has not had fever or chills. He has not yet had a bowel movement Allergies Allergy/AdvReac Type Severity Reaction Status Date / Time No Known Allergies Allergy Verified 11/29/18 08:08 Home Medications Home Medications Medication Instructions Recorded Confirmed Type atorvastatin 10 mg tablet 10 mg PO DAILY 07/18/18 11/29/18 History carbidopa 25 mg-levodopa 100 mg 0.5 tab PO BID 07/18/18 11/29/18 History tablet pramipexole 0.25 mg tablet 0.25 mg PO HS 07/18/18 11/29/18 History metoprolol tartrate 50 mg tablet 25 mg PO BID #180 tab 09/09/18 11/29/18 Rx Caltrate 600 plus D 1 tab PO QAM 10/12/18 11/29/18 History cyanocobalamin (vitamin B-12) 1,000 mcg PO QAM 10/12/18 11/29/18 History ranitidine HCl 150 mg PO BID 10/12/18 11/29/18 History ranolazine [Ranexa] 500 mg PO BID #60 tab 10/13/18 11/29/18 Rx cholecalciferol (vitamin D3) 2,000 2,000 units PO DAILY tab 10/14/18 11/29/18 History unit tablet rivaroxaban 15 mg tablet 15 mg PO DAILY #90 tab 11/17/18 11/29/18 Rx tamsulosin 0.4 mg capsule 0.4 mg PO DAILY #90 cap 11/26/18 11/29/18 Rx ipratropium bromide 2 spray INTRANASAL BID 11/29/18 11/29/18 History Patient History Medical History Hypercholesterolemia Chest pain (Acute) Angina pectoris, unstable (Acute) Unstable angina Decreased energy Lower urinary tract symptoms (LUTS) Followed by urology. Symptoms not controlled with tamsulosin so it was discontinued, switched to trospium Parkinsons disease Diagnosed ~2009 during hospitalization. Treated with carbidopa-levodopa + pramipexole for associated RLS. Followed by neurology through [facility] S/p dilation (2011) GERD (gastroesophageal reflux disease) EGD (2011) with demonstration of esophagitis. Repeat EGD (2104) unremarkable. Managed with H2 taiwo Hypertension (Chronic) Long standing. Managed with BB History of pulmonary embolism (Chronic) Hx of PE, provoked after prolonged automobile trip (2013). AC with rivaroxaban Paroxysmal atrial fibrillation (Chronic) Rate controlled with metoprolol and AC with rivaroxaban. Aortic stenosis Moderate, most recent echo (08/26) with aortic valve area calculated 1.6 cm2 with evidence of mild LVH and diastolic dysfunction. Followed by cardiology. Obstructive sleep apnea No longer using CPAP at night Chronic low back pain (Chronic) XR imaging demonstrating moderate multilevel degenerative changes. APAP PRN for pain Generalized osteoarthritis (Chronic) Primarily of knees and low back. Followed by ortho. Previous knee injections SBO (small bowel obstruction) A-fib (Chronic) Arthritis (Chronic) GERD (gastroesophageal reflux disease) (Chronic) Hyperlipidemia (Chronic) Hypertension (Chronic) H/O prostate cancer (Resolved) Surgical History S/P small bowel resection H/O sinus surgery (Resolved) S/P TURP (Resolved) Family History Unknown Coronary heart disease Social History Preferred Language: Cameroonian Communication Ability: Effective Visual Impairment: Limited Hearing Ability: Normal [place] Required: No Beliefs That Will Affect Care: None marital status: Current Living Situation: Family Current Living Situation Comment: living with dtr current occupational status: retired Other Information That Helps Us Care for You: No Feels Safe at Home: Yes Safety Concerns: Feels Safe At This Time Smoking Status: Former smoker Second Hand Exposure: No ; Hx Alcohol Use: Yes Alcohol type: beer Alcohol Intake Frequency: Holidays/Special Occasions Hx Substance Use: No Physical Exam Constitutional: no acute distress Respiratory: normal respiratory effort, lungs clear to auscultation Cardiovascular: Rate/Rhythm: regular rate and regular rhythm Gastrointestinal (Abdomen): Inspection/Auscultation: abdomen not distended Percussion/Palpation: abdomen soft; abdomen nontender Results & Data Vital Signs (Past 12 Hours) Vital Signs Temp Pulse Resp BP Pulse Ox 11/30/18 07:28 36.5 C 71 16 136/79 94 11/29/18 23:43 36.7 C 78 15 137/82 91 Laboratory Results 11/30/18 11/30/18 Range/Units 08:37 08:37 WBC 4.88 (4.8-10.8) K/uL RBC 4.03 L (4.7-6.1) M/uL Hgb 12.4 L (14.0-18.0) g/dL Hct 36.5 L (42-52) % MCV 90.6 (80-100) fL MCH 30.8 (25-34) pg MCHC 34.0 (32-36) g/dL RDW Std Deviation 50.2 H (36.4-46.3) fL RDW Coeff of Estefania 15.0 H (11.5-14.5) % Plt Count 167 (130-400) K/uL MPV 9.2 (7.4-10.4) fL Immature Gran % (Auto) 0.0 % Neut % (Auto) 54.7 % Lymph % (Auto) 28.5 % [place] % (Auto) 14.3 % Eos % (Auto) 2.3 % Baso % (Auto) 0.2 % Immature Gran # (Auto) 0.00 (0.00-0.02) K/uL Neut # (Auto) 2.67 (1.4-6.5) K/uL Lymph # (Auto) 1.39 (1.2-3.4) K/uL [place] # (Auto) 0.70 H (0.11-0.59) K/uL Eos # (Auto) 0.11 (0-0.5) K/uL Baso # (Auto) 0.01 (0-0.2) K/uL Sodium 137 (136-145) mmol/L Potassium 4.3 D (3.5-5.1) mmol/L Chloride 105 (98-107) mmol/L Carbon Dioxide 26 (21-32) mmol/L Anion Gap 6.0 (3-11) BUN 15 (7-18) mg/dl Creatinine 1.09 (0.6-1.4) mg/dl Est Cr Clr Drug Dosing 53.1 ml/min Est GFR ( Amer) 69.9 Est GFR (Non-Af Amer) 60.3 BUN/Creatinine Ratio 13.7 (10-20) Glucose 77 (70-99) mg/dl Calcium 8.1 L (8.5-10.1) mg/dl Diagnostic Findings CT OF THE ABDOMEN AND PELVIS WITH CONTRAST CLINICAL HISTORY: Vomiting. History of obstruction. COMPARISON STUDY: CT of the abdomen and pelvis June 12, 2016. Abdominal series June 20, 2016. TECHNIQUE: Following IV administration of 94 mL of Optiray-320, axial images of the abdomen and pelvis were obtained from the lung bases to the proximal femurs. Images were reviewed in the axial, sagittal, and coronal planes. IV contrast was administered without complication. Automated exposure control was utilized for the study. A dose lowering technique was utilized adhering to the principles of ALARA. CT DOSE: 769.12 mGy.cm FINDINGS: Prominent thoracic lymph nodes are unchanged and CT of February 26, 2013. There are gallstones within the gallbladder without evidence for acute cholecystitis. The liver, spleen, adrenal glands and pancreas are unremarkable as are the kidneys. There is moderate right renal atrophy. There is no hydronephrosis. No pneumatosis, free air or portal venous gas is present. Note is made of a 3.2 cm infrarenal abdominal aortic and chest. The mid small bowel is mildly dilated and fluid-filled. Several bowel containing ventral hernias are noted. No, these do not appear to result in the bowel obstruction. A definite transition point is not identified however the distal small bowel is decompress ed. There is a possible transition point within the anterior mid abdomen on image 219. Fat-containing left inguinal hernia is noted. There is sigmoid diverticulosis or evidence for acute diverticulitis. No suspicious osseous lesions are noted. There is no abdominal or pelvic lymphadenopathy. Major vasculature is patent. Trace ascites within the hernia sac is noted. IMPRESSION: 1. Mildly dilated fluid-filled mid small bowel with decompressed distal small bowel consistent with a partial small bowel obstruction. Several bowel containing ventral hernias which do not appear to result in the bowel obstruction. Possible transition point within the anterior mid abdomen, as described above. 2. 3.2 cm infrarenal abdominal aortic aneurysm. 3. Cholelithiasis. 4. Fat-containing left inguinal hernia.
--- NOTE | 2018-11-30 10:48 | Surgery Progress Note ---
Date of Service November 30, 2018 Assessment & Plan (1) Small bowel obstruction: Possible partial small bowel obstruction but is passing flatus. Has not had bowel movement Requires Dulcolax at home on a fairly frequent basis, will order suppository to try to stimulate bowel function No evidence of peritonitis No evidence for surgical intervention at this time Subjective Continues to pass flatus Has not had bowel movement yet Denies nausea and vomiting Has not had fever Denies abdominal pain Physical Exam Gastrointestinal (Abdomen): Inspection/Auscultation: normal bowel sounds; abdomen not distended Percussion/Palpation: abdomen soft; abdomen nontender Results & Data Vital Signs (Past 12 Hours) Vital Signs Temp Pulse Resp BP Pulse Ox 11/30/18 07:28 36.5 C 71 16 136/79 94 11/29/18 23:43 36.7 C 78 15 137/82 91 Laboratory Results 11/30/18 11/30/18 Range/Units 08:37 08:37 WBC 4.88 (4.8-10.8) K/uL RBC 4.03 L (4.7-6.1) M/uL Hgb 12.4 L (14.0-18.0) g/dL Hct 36.5 L (42-52) % MCV 90.6 (80-100) fL MCH 30.8 (25-34) pg MCHC 34.0 (32-36) g/dL RDW Std Deviation 50.2 H (36.4-46.3) fL RDW Coeff of Estefania 15.0 H (11.5-14.5) % Plt Count 167 (130-400) K/uL MPV 9.2 (7.4-10.4) fL Immature Gran % (Auto) 0.0 % Neut % (Auto) 54.7 % Lymph % (Auto) 28.5 % [place] % (Auto) 14.3 % Eos % (Auto) 2.3 % Baso % (Auto) 0.2 % Immature Gran # (Auto) 0.00 (0.00-0.02) K/uL Neut # (Auto) 2.67 (1.4-6.5) K/uL Lymph # (Auto) 1.39 (1.2-3.4) K/uL [place] # (Auto) 0.70 H (0.11-0.59) K/uL Eos # (Auto) 0.11 (0-0.5) K/uL Baso # (Auto) 0.01 (0-0.2) K/uL Sodium 137 (136-145) mmol/L Potassium 4.3 D (3.5-5.1) mmol/L Chloride 105 (98-107) mmol/L Carbon Dioxide 26 (21-32) mmol/L Anion Gap 6.0 (3-11) BUN 15 (7-18) mg/dl Creatinine 1.09 (0.6-1.4) mg/dl Est Cr Clr Drug Dosing 53.1 ml/min Est GFR ( Amer) 69.9 Est GFR (Non-Af Amer) 60.3 BUN/Creatinine Ratio 13.7 (10-20) Glucose 77 (70-99) mg/dl Calcium 8.1 L (8.5-10.1) mg/dl
[2018-11-30] MEDS ORDERED: bisacodyL 10 MG SUPP PR ONE (11:00)
[2018-11-30] MEDS: SODIUM CHLORIDE 0.9% 1000ML 1,000 ML IV SCH ×2 (12:12→23:42)
--- NOTE | 2018-11-30 12:58 | Hospitalist Progress Note ---
Date of Service November 30, 2018 Assessment & Plan (1) SBO (small bowel obstruction): CT shows partial bowel obstruction continue NPO, gentle IVF Zofran Consult gen surg - no indication for surgery at this time, gave patient suppository (2) A-fib: Continue metoprolol Resume Xeralto Patient has a history of PE provoked after a long car ride in 2013 (3) Hypertension: continue metoprolol (4) GERD (gastroesophageal reflux disease): continue ranitidine (5) Parkinsons disease: Continue Sinemet (6) Hyperlipidemia: continue statin (7) Angina pectoris, unstable: previously diagnosed - continue ranolazine Denies chest pain (8) Abdominal aortic aneurysm: 3.2 cm infrarenal abdominal aortic aneurysm seen incidentally on CT - follow up outpatient (9) DVT prophylaxis: Xeralto, SCDs Subjective No further vomiting since admission. No bowel movement yet. Mr. Benitez is very anxious to feel better and get back home Review of Systems Review of Systems: All systems reviewed & are unremarkable except as noted in HPI & below Physical Exam Physical Exam: General: no distress Eyes: normal inspection, PERLL Respiratory: chest non tender, clear to auscultation, normal breath sounds, no respiratory distress, no accessory muscle use Cardiac: regular rate and rhythm, no rub or gallop, no murmur, no edema, no jvd GI/: active bowel sounds, no abd pain or tenderness, soft, non distended Extremities: normal range of motion, normal strength, non tender Neuro/Psych: alert and oriented x 3, normal mood and affect Skin: normal color, dry Results & Data Vital Signs (Past 12 Hours) Vital Signs Temp Pulse Resp BP Pulse Ox 11/30/18 07:28 36.5 C 71 16 136/79 94 PG Care Time/CCT Total # of Minutes Spent Total Time Spent with Patient: Total time spent is greater than 50% in coordination of care (as documented) at patient's floor/unit and/or counseling patient:
[2018-11-30] MEDS ORDERED: RIVAROXABAN 15 MG TAB PO SCH (13:00)
[2018-11-30] MEDS: PRAMIPEXOLE DIHYDROCHLO 0.25 MG TAB PO SCH (20:53)
[2018-11-30] MEDS: DOCUSATE SODIUM 100 MG CAP PO SCH (20:53)
--- NOTE | 2018-12-01 08:08 | XRay Report ---
KUB HISTORY: Small bowel obstruction. Follow-up. Vomiting. COMPARISON: Abdomen and pelvis CT 11/29/2018. FINDINGS: A few prominent gas-filled loops of small bowel measure up to 3.3 cm in diameter. Gas and s tool within the colon. This corresponds to the patient's partial small bowel obstruction. The lung ba ses are clear. No renal calculi. No ureteral calculi. No pneumoperitoneum or pneumatosis. IMPRESSION: No change in the partial small bowel obstruction pattern. Electronically signed by: Jared Valero M.D. 12/01/2018 8:06 AM
[2018-12-01] MEDS: ATORVASTATIN 10 MG TAB PO SCH (09:01)
[2018-12-01] MEDS: CALCIUM 600MG + VIT D 400 IU TAB PO SCH (09:01)
[2018-12-01] MEDS: CHOLECALCIFEROL 1,000 UNITS TAB PO SCH (09:01)
[2018-12-01] MEDS: METOPROLOL TARTRATE 25 MG TAB PO SCH ×2 (09:02→21:21)
[2018-12-01] MEDS: CARBIDOPA/LEVODOPA 25/100MG TAB PO SCH ×2 (09:02→20:26)
[2018-12-01] MEDS: TAMSULOSIN HCL 0.4 MG CAP PO SCH (09:02)
[2018-12-01] MEDS: CYANOCOBALAMIN 500 MCG TABLET (VITAMIN B-12) PO SCH (09:02)
[2018-12-01] MEDS: RANOLAZINE 500 MG ER TAB PO SCH ×2 (09:02→20:27)
[2018-12-01] MEDS: DOCUSATE SODIUM 100 MG CAP PO SCH ×2 (09:03→20:25)
[2018-12-01] MEDS ORDERED: SOD PHOSPHATE/SOD BIPHOSPHATE ENEMA 132 ML BTL PR STA (09:22)
[2018-12-01 09:38] LABS: BUN Creatinine Ratio 10.7 (10-20); Calcium 8.6 mg/dl (8.5-10.1); Creatinine Clr Calc Pharmacy 49.9 ml/min; Est GFR (African American) 64.8; Est GFR (Non-African American) 55.9
--- NOTE | 2018-12-01 12:02 | Hospitalist Progress Note ---
Date of Service December 01, 2018 Assessment & Plan (1) SBO (small bowel obstruction): - CT showed partial SBO; f/u KUB this morning showed ongoing partial SBO. - Gen surg consulted, appreciate input. - Full liquid diet, advance as tolerated; d/c IV fluids. - Colace BID; had moderate BM following fleet enema this morning. (2) A-fib: - Continue Metoprolol as prescribed. - Resumed Xarelto 15 mg daily (h/o PE, provoked by traveling, in 2013) (3) Hypertension: - Continue beta taiwo as prescribed. - BP has been well controlled. (4) GERD (gastroesophageal reflux disease): - Continue Zantac as prescribed. (5) Parkinsons disease: - Continue Sinemet BID. (6) Hyperlipidemia: - Continue statin as prescribed. (7) Angina pectoris, unstable: - Continue Ranexa as prescribed. (8) Abdominal aortic aneurysm: - 3.2 cm infrarenal abdominal aortic aneurysm seen incidentally on CT; f/u as outpatient. (9) RLS (restless legs syndrome): - Continue Mirapex as prescribed. (10) DVT prophylaxis: - Xarelto; SCDs. Dispo: Med/surg; discharge pending advancement of diet, likely over next 24 hours. Subjective Pt. is doing well overall -- states he had a small BM with suppository yesterday but KUB this AM showed ongoing partial SBO. He is passing gas. Denies N/V. T olerating CLD. Review of Systems Review of Systems: All systems reviewed & are unremarkable except as noted in HPI & below Constitutional: no fever, no chills, no fatigue, no weakness and no anorexia Respiratory: no cough, no dyspnea, no dyspnea on exertion and no wheezing Cardiovascular: no chest pain, no palpitations and no edema Gastrointestinal: + constipation; no abdominal pain, no nausea and no vomiting Genitourinary: no difficulty urinating Musculoskeletal: no back pain and no joint pain Integumentary: no non-healing lesions Physical Exam Physical Exam: General: Resting comfortably HEENT: NC/AT; PERRLA with EOMI; [place] conjunctiva, MMM. Neck: Supple and nontender Cardiac: systolic heart murmur noted. Lungs: CTA bilaterally Abdomen: Bowel hypoactive X 4; Nontender to palpation Extremities: Warm. No edema present Neuro: No focal weakness Skin: No rash Results & Data Vital Signs (Past 12 Hours) Vital Signs Temp Pulse Resp BP Pulse Ox 12/01/18 07:16 36.4 C L 69 16 137/70 94 Laboratory Results 12/01/18 Range/Units 08:46 Sodium 136 (136-145) mmol/L Potassium 4.0 (3.5-5.1) mmol/L Chloride 103 (98-107) mmol/L Carbon Dioxide 25 (21-32) mmol/L Anion Gap 8.0 (3-11) BUN 12 (7-18) mg/dl Creatinine 1.16 (0.6-1.4) mg/dl Est Cr Clr Drug Dosing 49.9 ml/min Est GFR ( Amer) 64.8 Est GFR (Non-Af Amer) 55.9 BUN/Creatinine Ratio 10.7 (10-20) Glucose 92 (70-99) mg/dl Calcium 8.6 (8.5-10.1) mg/dl PG Care Time/CCT Total # of Minutes Spent Total Time Spent with Patient: Total time spent is greater than 50% in coordination of care (as documented) at patient's floor/unit and/or counseling patient:
[2018-12-01] MEDS: SODIUM CHLORIDE 0.9% 1000ML 1,000 ML IV SCH (12:21)
[2018-12-01] MEDS: RIVAROXABAN 15 MG TAB PO SCH (16:08)
[2018-12-01] MEDS ORDERED: bisacodyL 5 MG TABEC PO ONE (16:46)
--- NOTE | 2018-12-01 17:55 | Surgery Progress Note ---
Date of Service December 01, 2018 Assessment & Plan (1) Small bowel obstruction: There is no evidence of obstruction. He is no abdominal pain. He has no nausea or vomiting. He takes Dulcolax on a fairly regular basis. He may have a dependence on laxatives. I agree with ordering the Dulcolax. We will await hopefully in effect. There is no evidence of peritonitis. I do not feel there is any need for surgical intervention at this time. Subjective Denies nausea and vomiting Had an enema that was reported as being mildly successful although he was not convinced of that Denies abdominal pain Tolerated clear liquid diet Physical Exam Constitutional: no acute distress Gastrointestinal (Abdomen): Inspection/Auscultation: normal bowel sounds; abdomen not distended Percussion/Palpation: abdomen soft; abdomen nontender Results & Data Vital Signs (Past 12 Hours) Vital Signs Temp Pulse Resp BP Pulse Ox 12/01/18 15:22 36.4 C L 61 16 129/77 95 12/01/18 07:16 36.4 C L 69 16 137/70 94 Laboratory Results 12/01/18 Range/Units 08:46 Sodium 136 (136-145) mmol/L Potassium 4.0 (3.5-5.1) mmol/L Chloride 103 (98-107) mmol/L Carbon Dioxide 25 (21-32) mmol/L Anion Gap 8.0 (3-11) BUN 12 (7-18) mg/dl Creatinine 1.16 (0.6-1.4) mg/dl Est Cr Clr Drug Dosing 49.9 ml/min Est GFR ( Amer) 64.8 Est GFR (Non-Af Amer) 55.9 BUN/Creatinine Ratio 10.7 (10-20) Glucose 92 (70-99) mg/dl Calcium 8.6 (8.5-10.1) mg/dl
[2018-12-01] MEDS: PRAMIPEXOLE DIHYDROCHLO 0.25 MG TAB PO SCH (20:28)
[2018-12-02] MEDS: CHOLECALCIFEROL 1,000 UNITS TAB PO SCH (08:45)
[2018-12-02] MEDS: ATORVASTATIN 10 MG TAB PO SCH (08:45)
[2018-12-02] MEDS: METOPROLOL TARTRATE 25 MG TAB PO SCH ×2 (08:46→20:14)
[2018-12-02] MEDS: RANOLAZINE 500 MG ER TAB PO SCH ×2 (08:46→20:14)
[2018-12-02] MEDS: TAMSULOSIN HCL 0.4 MG CAP PO SCH (08:46)
[2018-12-02] MEDS: DOCUSATE SODIUM 100 MG CAP PO SCH ×2 (08:46→20:14)
[2018-12-02] MEDS: CARBIDOPA/LEVODOPA 25/100MG TAB PO SCH ×2 (08:46→20:15)
[2018-12-02] MEDS: CALCIUM 600MG + VIT D 400 IU TAB PO SCH (08:46)
[2018-12-02] MEDS: CYANOCOBALAMIN 500 MCG TABLET (VITAMIN B-12) PO SCH (08:46)
[2018-12-02] MEDS ORDERED: MAGNESIUM CITRATE 296 ML/BTL PO STA (10:16)
--- NOTE | 2018-12-02 11:40 | Surgery Progress Note ---
Date of Service December 02, 2018 Assessment & Plan (1) Small bowel obstruction: Resolved as he is passing gas, no abdominal pain, no nausea or vomiting and tolerating full liquids. On reviewing CT scan he has moderate formed stool in the right colon and likely has constipation. I do not believe suppository or enema had any beneficial effect. His abdominal examination is completely benign and abdominal hernias are completely reducible. Plan: Will plan to give some magnesium citrate to help stimulate movement of formed stool in right colon highly encouraged patient to ambulate hallway multiple times today to help stimulate GI motility Continue full liquids for lunch as do not want to increase diet with administration of mag citrate will continue to follow Management coordinated with Tayler Smith PA-C today at bedside Dr. Gutiérrez has seen patient and agrees with above. Subjective no bowel movement with Dulcolax last evening still able to tolerated full liquids without nausea, vomiting, or pain no abdominal pain passing flatus, a little less today than yesterday "I believe what is in my colon is causing the problem" Physical Exam Constitutional: WD/WN, vitals as above Gastrointestinal (Abdomen): Inspection/Auscultation: abdomen normal to inspection and normal bowel sounds; abdomen not distended Percussion/Palpation: abdomen soft and + hernia (Incisional hernia, superior aspect of ex lap scar); abdomen nontender, no guarding and abdomen not rigid Skin: no rashes, warm and dry Psychiatric: A+Ox3, euthymic affect Results & Data Vital Signs (Past 12 Hours) Vital Signs Temp Pulse Resp BP Pulse Ox 12/02/18 07:20 36.5 C 65 16 146/98 H 92
--- NOTE | 2018-12-02 15:40 | Hospitalist Progress Note ---
Date of Service December 02, 2018 Assessment & Plan (1) SBO (small bowel obstruction): - CT showed partial SBO; f/u KUB on 12/01 showed ongoing partial SBO. - Is tolerating diet, denies N/V but remains constipated. - Gen surg consulted, appreciate input. - Full liquid diet, advance if pt. is having regular BMs. - Colace BID; no significant improvement with fleet enema, dulcolax suppository or dulcolax PO -- will give mag citrate this morning. (2) A-fib: - Continue Metoprolol as prescribed. - Xarelto 15 mg daily (h/o PE, provoked by traveling, in 2013) (3) Hypertension: - Continue beta taiwo as prescribed. - BP has been well controlled. (4) GERD (gastroesophageal reflux disease): - Continue Zantac as prescribed. (5) Parkinsons disease: - Continue Sinemet BID. (6) Hyperlipidemia: - Continue statin as prescribed. (7) Angina pectoris, unstable: - Continue Ranexa as prescribed. (8) Abdominal aortic aneurysm: - 3.2 cm infrarenal abdominal aortic aneurysm seen incidentally on CT; f/u as outpatient. (9) RLS (restless legs syndrome): - Continue Mirapex as prescribed. (10) DVT prophylaxis: - Xarelto; SCDs. Dispo: Med/surg; discharge pending improvement in constipation. Supervising Physician Co-Signing Physician Notes Chart reviewed, case discussed with Tayler Smith PAC. Agree with decision making and plan. Care as above. Subjective Pt. did not have a BM with dulcolax 10 mg PO. Will give mag citrate 1/2 bottle this morning. He is tolerating a full liquid diet, denies abd pain, N/V. Is passing gas. Review of Systems Review of Systems: All systems reviewed & are unremarkable except as noted in HPI & below Constitutional: no fever, no chills, no fatigue, no weakness and no anorexia Respiratory: no cough, no dyspnea, no dyspnea on exertion and no wheezing Cardiovascular: no chest pain, no palpitations and no edema Gastrointestinal: + constipation; no abdominal pain and no nausea Genitourinary: no difficulty urinating Musculoskeletal: no back pain and no joint pain Physical Exam Physical Exam: General: Resting comfortably HEENT: NC/AT; PERRLA with EOMI; [place] conjunctiva, MMM. Neck: Supple and nontender Cardiac: systolic heart murmur. Lungs: CTA bilaterally Abdomen: Bowel hypoactive in all quadrants; Nontender to palpation Extremities: Warm. No edema present Neuro: No focal weakness Skin: No rash Results & Data Vital Signs (Past 12 Hours) Vital Signs Temp Pulse Pulse Resp BP Pulse Ox 12/02/18 15:21 36.2 C L 57 L 16 136/75 96 12/02/18 07:20 36.5 C 65 16 146/98 H 92 PG Care Time/CCT Total # of Minutes Spent Total Time Spent with Patient: Total time spent is greater than 50% in coordination of care (as documented) at patient's floor/unit and/or counseling patient:
[2018-12-02] MEDS: RIVAROXABAN 15 MG TAB PO SCH (16:30)
[2018-12-02] MEDS: PRAMIPEXOLE DIHYDROCHLO 0.25 MG TAB PO SCH (20:14)
[2018-12-03 06:54] LABS: Hematocrit (blood only) 33.5 % (42-52); Hemoglobin 11.8 g/dL (14.0-18.0); Mean Corpuscular Hemoglobin 30.9 pg (25-34); Mean Corpuscular Hgb Conc 35.2 g/dL (32-36); Mean Corpuscular Volume 87.7 fL (80-100); Mean Platelet Volume 9.9 fL (7.4-10.4); Platelet Count 151 K/uL (130-400); RDW Coefficient of Variation 14.5 % (11.5-14.5); RDW Standard Deviation 46.7 fL (36.4-46.3); Red Blood Count 3.82 M/uL (4.7-6.1); White Blood Count 4.25 K/uL (4.8-10.8)
[2018-12-03 07:35] LABS: BUN Creatinine Ratio 7.2 (10-20); Calcium 7.8 mg/dl (8.5-10.1); Creatinine Clr Calc Pharmacy 60.9 ml/min; Est GFR (African American) 82.5; Est GFR (Non-African American) 71.2; Potassium 4.1 mmol/L (3.5-5.1)
[2018-12-03] MEDS: ATORVASTATIN 10 MG TAB PO SCH (08:05)
[2018-12-03] MEDS: CYANOCOBALAMIN 500 MCG TABLET (VITAMIN B-12) PO SCH (08:05)
[2018-12-03] MEDS: TAMSULOSIN HCL 0.4 MG CAP PO SCH (08:06)
[2018-12-03] MEDS: RANOLAZINE 500 MG ER TAB PO SCH (08:06)
[2018-12-03] MEDS: CARBIDOPA/LEVODOPA 25/100MG TAB PO SCH (08:06)
[2018-12-03] MEDS: CALCIUM 600MG + VIT D 400 IU TAB PO SCH (08:06)
[2018-12-03] MEDS: CHOLECALCIFEROL 1,000 UNITS TAB PO SCH (08:06)
[2018-12-03] MEDS: METOPROLOL TARTRATE 25 MG TAB PO SCH (08:06)
[2018-12-03] MEDS: DOCUSATE SODIUM 100 MG CAP PO SCH (08:06)
[2018-12-03] MEDS ORDERED: POLYETHYLENE (MIRALAX) 17 GM PACK PO ONE (08:15)
--- NOTE | 2018-12-03 10:00 | Surgery Progress Note ---
Date of Service December 03, 2018 Assessment & Plan (1) Small bowel obstruction: Resolved as he is passing gas, no abdominal pain, no nausea or vomiting and tolerating full liquids. On reviewing CT scan he has moderate formed stool in the right colon and likely has constipation. I do not believe suppository or enema had any beneficial effect. His abdominal examination is completely benign and abdominal hernias are completely reducible. + bowel function after magnesium citrate Plan: Patient still concerned about his constipation. Wants something stronger. Discussed with Tayler Smith PA-C. Plan for 5 packets of Miralax or if patients refuses will try GoLytely. Continue regular diet Will need bowel regimen on discharge as he requires dulcolax at home at baseline from surgical standpoint can be discharged Dr. Gutiérrez has seen patient and agrees with above. Subjective still feeling well , no abdominal pain, no n/v, tolerated full liquids yesterday had bowel movement with mag citrate yesterday but still does not feel he is g etting strong enough doses, states he would like to see more stool output and to be given something stronger today "did not feel comfortable going home last evening" Physical Exam Constitutional: WD/WN, vitals as above no acute distress Gastrointestinal (Abdomen): Inspection/Auscultation: abdomen normal to inspection; abdomen not distended Percussion/Palpation: + hernia (superior incisional hernia ,completely reducible ); abdomen nontender, no guarding, abdomen not rigid and + abdomen not soft Skin: no rashes, warm and dry Psychiatric: A+Ox3, euthymic affect Results & Data Vital Signs (Past 12 Hours) Vital Signs Temp Pulse Resp BP Pulse Ox Pulse Ox 12/03/18 07:06 36.4 C L 60 18 151/79 H 93 12/03/18 00:05 94 12/02/18 22:54 36.4 C L 65 16 115/74 94
--- NOTE | 2018-12-03 14:48 | Discharge Summary ---
Date of Service December 03, 2018 Admission HPI Per Admitting Provider Mr. Benitez presented to the Emergency Department today due to nausea and vomiting. His daughter who is bedside and lives with him contributes to history. Mr. Benitez began having symptoms yesterday at 3:00 pm with vomiting dark brown emesis. He has not had a bowel movement in 4-5 days. He denies any other symptoms. No chest pain, sob, edema in his legs. Admission Exam Per Admitting Provider General: no distress Eyes: normal inspection, PERLL Respiratory: chest non tender, clear to auscultation, normal breath sounds, no respiratory distress, no accessory muscle use Cardiac: regular rate and rhythm, no rub or gallop, systolic murmur RUSB 3/6, no edema, no jvd GI/: active bowel sounds, no abd pain or tenderness, soft, non distended, reducible ventral hernia Extremities: normal range of motion, normal strength, non tender Neuro:oriented x 3, moves all extremities Psych: alert, normal mood and affect Skin: normal color, dry Principal Diagnosis Small Bowel Obstruction Discharge Exam General: Resting comfortably HEENT: NC/AT; PERRLA with EOMI; [place] conjunctiva, MMM. Neck: Supple and nontender Cardiac: systolic heart murmur. Lungs: CTA bilaterally Abdomen: Bowel normoactive in all quadrants; Nontender to palpation Extremities: Warm. No edema present Neuro: No focal weakness Skin: No rash Discharge Data Allergies Allergy/AdvReac Type Severity Reaction Status Date / Time No Known Allergies Allergy Verified 11/29/18 08:08 Consultations 11/29/18 09:18 ED Decision to Admit Stat 11/29/18 11:18 Consult Case Management - Discharge Planning Routine Consult General Surgery Routine Ordered Studies 11/29/18 07:28 CT abd pelvis IV con only Stat CXR 11/29 KUB 12/01 Hospital Course (1) SBO (small bowel obstruction): CT showed partial SBO; f/u KUB on 12/01 showed ongoing partial SBO. Had BM on 12/01 following enema. Continued to complain of constipation -- improved with Mag citrate (1/2 bottle) and Miralax (5 doses) Tolerating regular diet prior to discharge. Recommended to take Colace 100 mg BID at home along with Miralax prn. Chronic constipation has been an issue with this patient -- recommend discussing with PCP. (2) A-fib: Continued Metoprolol as prescribed. Xarelto 15 mg daily (h/o PE, provoked by traveling, in 2013) (3) Hypertension: Continued beta taiwo as prescribed (4) GERD (gastroesophageal reflux disease): Continued Zantac as prescribed. (5) Parkinsons disease: Continued Sinemet BID. (6) Hyperlipidemia: Continued statin as prescribed. (7) Angina pectoris, unstable: Continued Ranexa as prescribed. (8) Abdominal aortic aneurysm: 3.2 cm infrarenal abdominal aortic aneurysm seen incidentally on CT; f/u as outpatient. (9) RLS (restless legs syndrome): Continued Mirapex as prescribed. (10) DVT prophylaxis: Xarelto; SCDs. Discharged to home on 12/03/18. Total Time Total Time Spent Total Time Spent (In Minutes): >30 minutes Total Time Includes: Examination of the Patient, Discharge Planning, Medication Reconciliation, Communication With Other Providers and Other Discharge Plan Discharge Items Patient Disposition: Home - Self-Care Reason For Visit: SBO Discharge Diagnosis: Small Bowel Obstruction Activity: As commented below Exercise/Sports: Gradually increase as tolerated Non-emergency contact: Primary Care Provider Call non-emergency contact if: you have any medication questions, your symptoms worsen, your pain is not controlled, your pain is worsening, your pain is unusual for you, your pain is concerning for you and you have a fever Follow-up/Referrals: Nitin Barlow MD [Primary Care Provider] - 12/11/18 10:00 am (Please, follow up with Dr. Barlow on December 11 at 10:00 am. *If you need to change this appointment, call the office at [phone].) Diet: Regular Addtl Attending Provider Instructions: 1. Small Bowel Obstruction and Constipation * Please continue Colace 100 mg twice daily scheduled. * Please take Miralax 17 gm daily if you are not having regular bowel movements. * Consider additional agents, such as Benefiber daily. 2. Please follow up with Dr. Barlow as scheduled on 12/11/18. Pending Studies at Discharge: No Stand-Alone Forms: [facility] Medications and DC Order Prescriptions: New docusate sodium 100 mg Capsule 100 mg PO BID 1 Days Qty: 2 RF: 0 polyethylene glycol 3350 [Miralax] 17 gram powder in packet 17 gm PO DAILY PRN (Reason: constipation) Qty: 1 RF: 0 Continued atorvastatin [Lipitor] 10 mg tablet 10 mg PO DAILY RF: 0 carbidopa-levodopa [Sinemet] 25-100 mg tablet 0.5 tab PO BID RF: 0 pramipexole 0.25 mg tablet 0.25 mg PO HS RF: 0 metoprolol tartrate [Lopressor] 50 mg tablet 25 mg PO BID Qty: 180 RF: 3 Xarelto 15 mg tablet 15 mg PO DAILY Qty: 90 RF: 3 cholecalciferol (vitamin D3) 2,000 unit tablet 2,000 units PO DAILY RF: 0 tamsulosin 0.4 mg capsule 0.4 mg PO DAILY Qty: 90 RF: 3 cyanocobalamin (vitamin B-12) 1,000 mcg Tablet 1,000 mcg PO QAM RF: 0 ranitidine HCl 150 mg Tablet 150 mg PO BID RF: 0 Caltrate 600 plus D 600 mg (1,500 mg)-800 unit Tablet,Chewable 1 tab PO QAM RF: 0 ranolazine [Ranexa] 500 mg tablet extended release 12 hr 500 mg PO BID Qty: 60 RF: 5 ipratropium bromide 42 mcg (0.06 %) spray,non-aerosol 2 spray intranasal BID RF: 0 Discharge Orders: Discharge Order (Routine); Ordered 12/03/18 Ordered By: Tayler Smith Admission Data Admit Date/Time: 11/29/18 10:07 Attending Provider: Artemio Arthur Admit Provider: Ishmael De Primary Care Provider: Nitin Barlow Other Providers: Artemio Arthur ; Al Cleveland ; Ishmael De Other Interventions: Discharge Summary Assessment (RN) Last Done: 12/03/18 14:52 DC Date/Time DO NOT enter until pt leaves facility: 12/03/18 15:50 Supervising Physician Co-Signing Physician Notes Chart reviewed, case discussed with Tayler Smith PAC. Agree with decision making and plan. Care as above.
== END 2018-12-03 15:50 | disposition home or self-care (01) | DRG 389 ==
LOC: ED 07:09 → SUATTDRO 10:07 → 3N 10:07
DX: K21.9 Gastro-esophageal reflux disease without esophagitis; I71.4 Abdominal aortic aneurysm, without rupture; Z79.899 Other long term (current) drug therapy; Z79.01 Long term (current) use of anticoagulants; G20 Parkinson's disease; I20.0 Unstable angina; Z87.891 Personal history of nicotine dependence; K56.600 Partial intestinal obstruction, unspecified as to cause; Z86.711 Personal history of pulmonary embolism; N40.0 Benign prostatic hyperplasia without lower urinary tract symptoms; E78.5 Hyperlipidemia, unspecified; I48.91 Unspecified atrial fibrillation; G47.33 Obstructive sleep apnea (adult) (pediatric); I10 Essential (primary) hypertension; G25.81 Restless legs syndrome; K59.09 Other constipation

== ENCOUNTER 2019-04-24 10:01 | Observation (INO) ==
[2019-04-24] MEDS ORDERED: ASPIRIN CHEW 324 MG PO STA (10:39)
[2019-04-24 10:53] LABS: Hematocrit (blood only) 37.6 % (42-52); Hemoglobin 12.7 g/dL (14.0-18.0); Immature Granulocytes # (auto) 0.03 K/uL (0.00-0.02); Immature Granulocytes % (auto) 0.3 %; Lymphocytes # (auto) 1.37 K/uL (1.2-3.4); Lymphocytes % (auto) 13.2 %; Mean Corpuscular Hemoglobin 30.7 pg (25-34); Mean Corpuscular Hgb Conc 33.8 g/dL (32-36); Mean Corpuscular Volume 90.8 fL (80-100); Mean Platelet Volume 10.8 fL (7.4-10.4); Monocytes # (auto) 0.76 K/uL (0.11-0.59); Monocytes % (auto) 7.3 %; Neutrophils # (auto) 8.19 K/uL (1.4-6.5); Neutrophils % (auto) 79.2 %; Platelet Count 171 K/uL (130-400); RDW Coefficient of Variation 15.5 % (11.5-14.5); RDW Standard Deviation 51.5 fL (36.4-46.3); Red Blood Count 4.14 M/uL (4.7-6.1); White Blood Count 10.35 K/uL (4.8-10.8)
--- NOTE | 2019-04-24 10:56 | XRay Report ---
XR chest 1V portable CLINICAL HISTORY: Chest Pain COMPARISON STUDY: Chest radiograph November 29, 2018. FINDINGS: Lung volumes are normal. There is no pneumothorax or pleural effusion. There is mild cardio megaly without evidence for pulmonary edema. Mild bibasilar opacities are present. There is no lobar consolidation. Old right fourth rib fracture is present. IMPRESSION: 1. Mild bibasilar opacities which favor atelectasis. Mild infectious process could appear similar. 2. Mild cardiomegaly without evidence for pulmonary edema. ACT 112: Negative or not required by law. Electronically signed by: Andriy House M.D. 04/24/2019 10:54 AM
[2019-04-24 11:00] LABS: Alanine Aminotransferase 19 U/L (12-78); Albumin Level 3.7 gm/dl (3.4-5.0); Aspartate Aminotransferase 12 U/L (15-37); Blood Urea Nitrogen 28 mg/dl (7-18); Calcium 8.6 mg/dl (8.5-10.1); Carbon Dioxide 22 mmol/L (21-32); Chloride 106 mmol/L (98-107); Est GFR (Non-African American) 52.6; Glucose 123 mg/dl (70-99); Lipase 38 U/L (73-393); Potassium 3.7 mmol/L (3.5-5.1); Sodium 137 mmol/L (136-145)
[2019-04-24 11:02] LABS: INR 1.3 (0.9-1.1); Partial Thromboplastin Ratio 1.1; Partial Thromboplastin Time 29.1 Seconds (21.0-31.0); Prothrombin Time 13.2 Seconds (9.0-12.0)
[2019-04-24 11:04] LABS: Albumin Globulin Ratio 1.1 (0.9-2); Alkaline Phosphatase 60 U/L (45-117); Bilirubin,Total 0.7 mg/dl (0.2-1); Globulin 3.2 gm/dl (2.5-4.0); Total Protein 6.9 gm/dl (6.4-8.2); Troponin I < 0.015 ng/ml (0-0.045)
--- NOTE | 2019-04-24 15:33 | Emergency Department Note ---
Entered by Rashawn Monsalve acting as a scribe for History of Present Illness General Chief complaint: Chest Pain Stated complaint: CHEST PAINS, SOB, CARDIAC HISTORY Source: patient Limitations: no limitations History of Present Illness Onset (ago): day(s) (yesterday) Location: chest Severity: similar to prior episodes Pain Consistency: + intermittent Maximum Pain Intensity: 2 Current Pain Intensity: 0 Exacerbated By: + movement (walking) Associated symptoms: + denies other symptoms (leg swelling) and + shortness of breath The patient is an 88 year old male who presents to the Emergency Room with complaints of intermittent chest pain starting yesterday. The patient states he was walking around a store yesterday when he started to get chest pain. He state s he sat down and eventually the chest pain resolved. He states he did not have chest pain last night. The patient states he had chest pain when he was walking around this morning. He notes he got short of breath with the chest pain. The patient states his pain is 0/10 right now. The patient's daughter states the patient had a blood clot 6 years ago and was put on Xarelto at that time. She states the patient has a history of A-Fib. The daughter states the patient did not have an illness leading up to this. The patient denies having swelling in his legs. 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 Home Medications Home Medications Medication Instructions Recorded Confirmed Type atorvastatin 10 mg tablet 10 mg PO DAILY 07/18/18 04/24/19 History carbidopa 25 mg-levodopa 100 mg 0.5 tab PO BID 07/18/18 04/24/19 History tablet pramipexole 0.25 mg tablet 0.25 mg PO HS 07/18/18 04/24/19 History metoprolol tartrate 50 mg tablet 25 mg PO BID #180 tab 09/09/18 04/24/19 Rx Caltrate 600 plus D 1 tab PO QAM 10/12/18 04/24/19 History cyanocobalamin (vitamin B-12) 1,000 mcg PO QAM 10/12/18 04/24/19 History cholecalciferol (vitamin D3) 50 2,000 units PO DAILY tab 10/14/18 04/24/19 History mcg (2,000 unit) tablet rivaroxaban 15 mg tablet 15 mg PO DAILY #90 tab 11/17/18 04/24/19 Rx tamsulosin 0.4 mg capsule 0.4 mg PO DAILY #90 cap 11/26/18 04/24/19 Rx ipratropium bromide 2 spray INTRANASAL BID 11/29/18 04/24/19 History bisacodyl 5 mg tablet,delayed 5 mg PO DAILY PRN 02/19/19 04/24/19 History release famotidine 20 mg tablet 20 mg PO DAILY 02/19/19 04/24/19 History ranolazine 500 mg tablet,extended 500 mg PO BID #60 tab 04/16/19 04/24/19 Rx release,12 hr furosemide [Lasix] 20 mg PO Q OTHER DAY #30 tab 04/25/19 Rx Allergies Allergy/AdvReac Type Severity Reaction Status Date / Time No Known Drug Allergies Allergy Verified 04/24/19 10:39 Past Med/Surg History Medical History Chronic low back pain (Chronic) XR imaging demonstrating moderate multilevel degenerative changes. APAP PRN for pain Generalized osteoarthritis (Chronic) Primarily of knees and low back. Followed by ortho. Previous knee injections H/O prostate cancer (Resolved) History of pulmonary embolism Hx of PE, provoked after prolonged automobile trip (2013). AC with rivaroxaban SBO (small bowel obstruction) Schatzki's ring S/p dilation (2011) Surgical History H/O sinus surgery (Resolved) History of colonoscopy 06/11/2003 History of exploratory laparotomy lysis of adhesion band-06/15/16-Dr. Cleveland History of nasal surgery turbinate reduction S/P small bowel resection S/P TURP (Resolved) Family History Unknown Coronary heart disease Cancer Father Myocardial infarction Cardiac disorder Mother No problems noted. 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 Beliefs That Will Affect Care: None marital status: Current Living Situation: Family Current Living Situation Comment: dtr current occupational status: retired Feels Safe at Home: Yes Smoking Status: Former smoker Age Started Using Tobacco: 13 ; Age Quit Using Tobacco: 23 ; Second Hand Exposure: No ; Hx Alcohol Use: Yes Alcohol type: beer Alcohol Intake Frequency: Holidays/Special Occasions Hx Substance Use: No Childhood Exposure to Second-Hand Smoke: Yes Dental Care, Regularly: Yes Physical Activity Frequency: Daily Seatbelt Use: always Sunscreen Use: Yes Review of Systems See HPI for pertinent positives & negatives. and A total of 10 systems reviewed and were otherwise negative Physical Exam Vital Signs Vital Signs - 24 hr 04/24/19 10:05 04/24/19 11:12 04/24/19 12:51 Temperature 36.9 C Temperature Source Oral Pulse Rate 90 71 Pulse Rate [Apical] 71 53 L Pulse Rhythm Regular Pulse Rhythm [Apical] Regular Regular Pulse Strength [Apical] Normal Normal Respiratory Rate 16 22 16 Respiratory Effort / Characteristics Non-Labored Spontaneous Non-Labored Spontaneous Respiratory Depth Normal Normal Respiratory Pattern Regular Regular Blood Pressure 129/72 Blood Pressure [Left Arm] 134/74 154/74 H Blood Pressure Mean 91 Blood Pressure Mean [Left Arm] 94 100 Blood Pressure Position [Left Arm] Sitting Sitting Pulse Oximetry 97 95 95 Oxygen Delivery Method Room Air Room Air Room Air Sepsis Recent Fever Within 48 Hours No Sepsis New/Unexplained Change in Mental Status No Sepsis Action Taken by Nursing No Action Required 04/24/19 14:56 Temperature Temperature Source Pulse Rate Pulse Rate [Apical] 75 Pulse Rhythm Pulse Rhythm [Apical] Regular Pulse Strength [Apical] Normal Respiratory Rate 18 Respiratory Effort / Characteristics Non-Labored Spontaneous Respiratory Depth Normal Respiratory Pattern Regular Blood Pressure Blood Pressure [Left Arm] 136/90 Blood Pressure Mean Blood Pressure Mean [Left Arm] 105 Blood Pressure Position [Left Arm] Sitting Pulse Oximetry 95 Oxygen Delivery Method Room Air Sepsis Recent Fever Within 48 Hours Sepsis New/Unexplained Change in Mental Status Sepsis Action Taken by Nursing Vital signs reviewed. General: Well-appearing 88-year-old male, in no significant distress. HEENT: No scleral icterus, PERRLA, neck supple. Atraumatic. Cardiovascular: Regular rate and rhythm. High pitched systolic ejection murmur. Pulmonary: Clear to auscultation bilaterally, normal work of breathing. Abdomen: Soft, nontender, nondistended, positive bowel sounds. Musculoskeletal: Atraumatic, no peripheral edema. Neurologic: Patient awake alert and oriented x 3 Skin: Warm, dry, no rash Course Course 1033: The patient was evaluated in room C3, and a complete history and physical examination were performed. 1353: I updated the patient regarding his labs and imaging. I recommended admission, and he is agreeable. 1355: I [facility] the patient's [facility] She will evaluate the patient for further management. Administered Medications Discontinued Medications Acetaminophen (Tylenol) 650 mg PO Q4H PRN PRN Reason: Pain or Fever Stop: 05/24/19 18:13 Last Admin: 04/25/19 08:00 Dose: 650 mg Documented by: [id number] Aspirin (Aspirin) 324 mg PO NOW [facility] Stop: 04/24/19 10:40 Last Admin: 04/24/19 11:11 Dose: 324 mg Documented by: [id number] Aspirin (Ecotrin Ectab) 81 mg PO QAM [facility] Stop: 05/25/19 08:59 Last Admin: 04/25/19 07:55 Dose: 81 mg Documented by: [id number] Atorvastatin Calcium (Lipitor) 10 mg PO DAILY [facility] Stop: 05/25/19 08:59 Last Admin: 04/25/19 07:56 Dose: 10 mg Documented by: [id number] Carbidopa/Levodopa (Sinemet 25/100 Mg) 0.5 tab PO BID [facility] Stop: 05/24/19 20:59 Last Admin: 04/25/19 07:57 Dose: 0.5 tab Documented by: [id number] Admin: 04/24/19 19:35 Dose: 0.5 tab Documented by: [id number] Cyanocobalamin (Vitamin B-12) 1,000 mcg PO QAM [facility] Stop: 05/25/19 08:59 Last Admin: 04/25/19 07:58 Dose: 1,000 mcg Documented by: [id number] Furosemide 20 mg/ Syringe 2 mls @ 4 mls/min IV DAILY [facility] Stop: 05/25/19 10:14 Last Admin: 04/25/19 10:45 Dose: 4 mls/min Documented by: [id number] Ipratropium [place] (Atrovent Nasal [place] 0.06%) 2 sprays SOSA BID [facility] Stop: 05/24/19 20:59 Last Admin: 04/25/19 07:54 Dose: 2 sprays Documented by: [id number] Admin: 04/24/19 19:36 Dose: Not Given Documented by: [id number] Metoprolol Tartrate (Lopressor) 25 mg PO BID [facility] Stop: 05/24/19 20:59 Last Admin: 04/25/19 07:56 Dose: 25 mg Documented by: [id number] Admin: 04/24/19 19:34 Dose: 25 mg Documented by: [id number] Multivitamins/Minerals (Caltrate Plus) 1 tab PO QAM [facility] Stop: 05/25/19 08:59 Last Admin: 04/25/19 07:55 Dose: 1 tab Documented by: [id number] Nitroglycerin (Nitro-Bid 2%) 1 inch EXT Q6 [facility] Stop: 05/24/19 18:13 Last Admin: 04/25/19 11:42 Dose: 1 inch Documented by: [id number] Admin: 04/25/19 05:48 Dose: 1 inch Documented by: [id number] Admin: 04/25/19 00:47 Dose: 1 inch Documented by: [id number] Admin: 04/24/19 19:31 Dose: 1 inch Documented by: [id number] Perflutren Lipid Microsphere (Definity) 2 ml IV ONCE ONE Stop: 04/25/19 10:46 Last Admin: 04/25/19 10:45 Dose: 2 ml Documented by: [id number] Pramipexole Dihydrochloride (Mirapex) 0.25 mg PO HS [facility] Stop: 05/24/19 20:59 Last Admin: 04/24/19 19:34 Dose: 0.25 mg Documented by: [id number] Ranolazine (Ranexa) 500 mg PO BID [facility] Stop: 05/24/19 20:59 Last Admin: 04/25/19 07:57 Dose: 500 mg Documented by: [id number] Admin: 04/24/19 19:35 Dose: 500 mg Documented by: [id number] Rivaroxaban (Xarelto) 15 mg PO DAILY [facility] Stop: 05/24/19 18:13 Last Admin: 04/25/19 07:59 Dose: 15 mg Documented by: [id number] Admin: 04/24/19 19:33 Dose: 15 mg Documented by: [id number] Tamsulosin HCl (Flomax) 0.4 mg PO DAILY [facility] Stop: 05/24/19 18:13 Last Admin: 04/25/19 07:56 Dose: 0.4 mg Documented by: [id number] Admin: 04/24/19 19:33 Dose: 0.4 mg Documented by: [id number] Vitamin D (Vitamin D3) 2,000 units PO DAILY [facility] Stop: 05/25/19 08:59 Last Admin: 04/25/19 07:58 Dose: 2,000 units Documented by: [id number] Medical Decision Making Differential Diagnosis Differential diagnoses includes but is not limited to acute coronary syndrome, myocardial infarction, pericarditis, pulmonary embolus, aortic dissection, pneumonia, pneumothorax, musculoskeletal, shingles, esophageal. Medical Records Attestation: I reviewed the patient's medical records. Home Medications Current Medication List: was personally reviewed by me Laboratory Data Attestation: I reviewed the patient's lab results. Result diagrams: 04/25/19 06:55 04/25/19 06:55 Lab Results 04/24/19 04/24/19 04/24/19 Range/Units 10:25 10:25 10:25 WBC 10.35 (4.8-10.8) K/uL RBC 4.14 L (4.7-6.1) M/uL Hgb 12.7 L (14.0-18.0) g/dL Hct 37.6 L (42-52) % MCV 90.8 (80-100) fL MCH 30.7 (25-34) pg MCHC 33.8 (32-36) g/dL RDW Std Deviation 51.5 H (36.4-46.3) fL RDW Coeff of Estefania 15.5 H (11.5-14.5) % Plt Count 171 (130-400) K/uL MPV 10.8 H (7.4-10.4) fL Immature Gran % (Auto) 0.3 % Neut % (Auto) 79.2 % Lymph % (Auto) 13.2 % Shannon % (Auto) 7.3 % Eos % (Auto) 0.0 % Baso % (Auto) 0.0 % Immature Gran # (Auto) 0.03 H (0.00-0.02) K/uL Neut # (Auto) 8.19 H (1.4-6.5) K/uL Lymph # (Auto) 1.37 (1.2-3.4) K/uL Shannon # (Auto) 0.76 H (0.11-0.59) K/uL Eos # (Auto) 0.00 (0-0.5) K/uL Baso # (Auto) 0.00 (0-0.2) K/uL PT 13.2 H (9.0-12.0) Seconds INR 1.3 H (0.9-1.1) APTT 29.1 (21.0-31.0) Seconds PTT Ratio 1.1 Sodium 137 (136-145) mmol/L Potassium 3.7 (3.5-5.1) mmol/L Chloride 106 (98-107) mmol/L Carbon Dioxide 22 (21-32) mmol/L Anion Gap 9.0 (3-11) BUN 28 H (7-18) mg/dl Creatinine 1.22 (0.6-1.4) mg/dl Est Cr Clr Drug Dosing 48.0 ml/min Est GFR ( Amer) 61.0 Est GFR (Non-Af Amer) 52.6 BUN/Creatinine Ratio 23.0 H (10-20) Glucose 123 H (70-99) mg/dl Calcium 8.6 (8.5-10.1) mg/dl Total Bilirubin 0.7 (0.2-1) mg/dl AST 12 L (15-37) U/L ALT 19 (12-78) U/L Alkaline Phosphatase 60 (45-117) U/L Troponin I < 0.015 (0-0.045) ng/ml Total Protein 6.9 (6.4-8.2) gm/dl Albumin 3.7 (3.4-5.0) gm/dl Globulin 3.2 (2.5-4.0) gm/dl Albumin/Globulin Ratio 1.1 (0.9-2) Lipase 38 L (73-393) U/L Imaging Data Radiologist's Impression: Radiology results as stated below per my review and the radiologist's interpretation: XR chest 1V portable CLINICAL HISTORY: Chest Pain COMPARISON STUDY: Chest radiograph November 29, 2018. FINDINGS: Lung volumes are normal. There is no pneumothorax or pleural effusion. There is mild cardiomegaly without evidence for pulmonary edema. Mild bibasilar opacities are present. There is no lobar consolidation. Old right fourth rib fracture is present. IMPRESSION: 1. Mild bibasilar opacities which favor atelectasis. Mild infectious process could appear similar. 2. Mild cardiomegaly without evidence for pulmonary edema. ACT 112: Negative or not required by law. Electronically signed by: Andriy House M.D. 04/24/2019 10:54 AM ECG Data Attestation: I personally reviewed and interpreted this ECG as follows: Indication: + chest pain Rate (beats per minute): 89 Rhythm: + sinus rhythm ECG Intervals/blocks: + First degree AV block and + Prolonged QT (at 467) ECG ST segments: no ST depression and no ST elevation ECG Findings: + PVCs Additional Comments: An order for cardiac monitoring was placed and the patient was found to be in a sinus rhythm with a first-degree AV block at approximately 80 bpm. Blood Pressure Blood Pressure Findings: Elevated blood pressure Blood Pressure Disposition: further management by hospitalist MDM Narrative This patient was evaluated and appeared to be in no significant distress. IV access was obtained and laboratory work was drawn. The patient was placed on the cardiac catheterization technologist. Patient was given 324 mg of aspirin to chew. He was pain- free at the time of my evaluation. Patient's laboratory work reveals a negative troponin. Chest x-ray is reveals mild bilateral atelectasis at the bases with cardiomegaly. There is no evidence of acute process. Patient is noted to be mildly hypertensive. He did remain pain-free during his stay however given his exertional symptoms, complicated medical history and advanced age, patient will be evaluated by the hospitalist service for further management. Patient and daughter are aware of the plan and agree. Impression & Plan Chest pain, precordial, Exertional dyspnea Discharge Plan Visit Data *Final* Discharge Date/Time: 04/24/19 17:45 Chief Complaint: Chest Pain Stated Complaint: CHEST PAINS, SOB, CARDIAC HISTORY ED Provider: Qing Kendrick Discharge Problem: Chest pain, precordial, Exertional dyspnea Patient Disposition: Admitted As Inpatient Condition: Good Discharge Instructions Interventions: ED Discharge Assessment Last Done: 04/24/19 17:45 The scribe's documentation has been prepared under my direction and personally reviewed by me in its entirety. I confirm that the note above accurately reflects all work, treatment, procedures, and medical decision making performed by me.
--- NOTE | 2019-04-24 16:21 | History & Physical Report ---
Date of Service April 24, 2019 Assessment & Plan (1) Chest pain, precordial: Admit to PCU on telemetry for observation. Vital signs every 4 hours, Replenish electrolytes as needed, Troponin x3, TTE pending, Consider consulting cardiology if present abnormalities with troponin and TTE DVT prophylaxis patient is on Xarelto for paroxysmal A. fib's Full code Present on Admission?: Yes (2) Exertional dyspnea: Would benefit from cardiac rehab. Patient appears to be euvolemic, BNP pending. Present on Admission?: Yes (3) Coronary artery disease: Fasting lipid panel pending, continue home medicine atorvastatin 10 mg p.o. daily, metoprolol tartrate 25 mg p.o. twice daily, ranolazine 500 mg p.o. twice daily. Present on Admission?: Yes (4) GERD (gastroesophageal reflux disease): Stable, continue famotidine 20 mg p.o. daily. Present on Admission?: Yes (5) Hypertension: As the above continue home medicine metoprolol 25 mg p.o. twice daily, ranolazine 500 mg p.o. twice daily. Aspirin 324 mg p.o. given in the ER. Continue aspirin 81 mg p.o. daily. Present on Admission?: Yes (6) Paroxysmal atrial fibrillation: Stable, continue Xarelto Present on Admission?: Yes (7) Obstructive sleep apnea: Patient states that for the past 4 years he does not use CPAP at home. Continue observing. Present on Admission?: Yes (8) Parkinsons disease: Continue carbidopa/levodopa 25/100 mg half a tablet p.o. twice daily. Present on Admission?: Yes (9) COPD (chronic obstructive pulmonary disease): Stable, continue ipratropium bromide 2 sprays intranasally twice daily Present on Admission?: Yes (10) Constipation, acute: Continue bisacodyl 5 mg p.o. daily as needed as needed Present on Admission?: Yes (11) Benign prostatic hyperplasia: Continue tamsulosin 0.4 mg p.o. daily Present on Admission?: Yes History of Present Illness Chief Complaint: Generalized weakness, feeling tired, chest pain Primary Care Provider: Skinny Adams, DO The patient is a 88 years old male with past medical history of coronary artery disease, restless leg syndrome, abdominal aortic aneurysm, Parkinson disease, GERD, hypertension, paroxysmal atrial fibrillation on Xarelto, aortic stenosis, obstructive sleep apnea who was brought by his daughter today complaining of substernal chest pain that occurred yesterday and lasted for couple of hours and again occurred today at 7:30 AM and lasted for 3 and half hours. Patient sees Dr. Montero his roughener. Patient states that in the past several weeks he has been significantly tired and had to sit down after walk for less than 1 block. He reports being unusually tired and that started toward him. Patient denies any sick contact. Patient denies fever, chills, chest pain, shortness of breath, abdominal pain, frequency, urgency. Labs are reviewed which shows: WBC is 12.35, hemoglobin 12.7, hematocrit 37.6, platelets 171, PT 13.2, INR 1.3, APTT 29.1, sodium 137, potassium 3.7, chloride 106, anion gap 9, BUN 28, creatinine 1.22, GFR 52.6, glucose 123, calcium 8.6, AST 12, ALT 19, alkaline phosphatase 60, troponin 0.015, total protein 6.9, albumin 3.7, globulin 3.2, lipase 38, procalcitonin pending. Chest x-ray is with mild bibasilar opacities which favor atelectasis. Mild infectious process could appear similar. Mild cardiomegaly without evidence for pulmonary edema. The decision was made to admit patient for chest pain and to rule out acute coronary syndrome to PCU on telemetry for observation. Allergies Allergy/AdvReac Type Severity Reaction Status Date / Time No Known Drug Allergies Allergy Verified 04/24/19 10:39 Home Medications Home Medications Medication Instructions Recorded Confirmed Type atorvastatin 10 mg tablet 10 mg PO DAILY 07/18/18 04/24/19 History carbidopa 25 mg-levodopa 100 mg 0.5 tab PO BID 07/18/18 04/24/19 History tablet pramipexole 0.25 mg tablet 0.25 mg PO HS 07/18/18 04/24/19 History metoprolol tartrate 50 mg tablet 25 mg PO BID #180 tab 09/09/18 04/24/19 Rx Caltrate 600 plus D 1 tab PO QAM 10/12/18 04/24/19 History cyanocobalamin (vitamin B-12) 1,000 mcg PO QAM 10/12/18 04/24/19 History cholecalciferol (vitamin D3) 50 2,000 units PO DAILY tab 10/14/18 04/24/19 History mcg (2,000 unit) tablet rivaroxaban 15 mg tablet 15 mg PO DAILY #90 tab 11/17/18 04/24/19 Rx tamsulosin 0.4 mg capsule 0.4 mg PO DAILY #90 cap 11/26/18 04/24/19 Rx ipratropium bromide 2 spray INTRANASAL BID 11/29/18 04/24/19 History bisacodyl 5 mg tablet,delayed 5 mg PO DAILY PRN 02/19/19 04/24/19 History release famotidine 20 mg tablet 20 mg PO DAILY 02/19/19 04/24/19 History ranolazine 500 mg tablet,extended 500 mg PO BID #60 tab 04/16/19 04/24/19 Rx release,12 hr Past Med/Surg History Medical History Chronic low back pain (Chronic) XR imaging demonstrating moderate multilevel degenerative changes. APAP PRN for pain Generalized osteoarthritis (Chronic) Primarily of knees and low back. Followed by ortho. Previous knee injections H/O prostate cancer (Resolved) History of pulmonary embolism Hx of PE, provoked after prolonged automobile trip (2013). AC with rivaroxaban SBO (small bowel obstruction) Schatzki's ring S/p dilation (2011) Surgical History H/O sinus surgery (Resolved) History of colonoscopy 06/11/2003 History of exploratory laparotomy lysis of adhesion band-06/15/16-Dr. Cleveland History of nasal surgery turbinate reduction S/P small bowel resection S/P TURP (Resolved) Family History Unknown Coronary heart disease Cancer Father Myocardial infarction Cardiac disorder Mother No problems noted. Other Bipolar disorder Denies family history of Ovarian cancer Prostate cancer Crohn's disease Breast cancer Lung cancer Colorectal cancer Social History Preferred Language: Ukrainian Communication Ability: Effective Visual Impairment: Limited Hearing Ability: Normal Windows And Doors Installer Required: No Beliefs That Will Affect Care: None marital status: Current Living Situation: Family Current Living Situation Comment: living with dtr current occupational status: retired Feels Safe at Home: Yes Smoking Status: Never smoker Age Started Using Tobacco: 13 ; Age Quit Using Tobacco: 23 ; Second Hand Exposure: No ; Hx Alcohol Use: Yes Alcohol type: beer Alcohol Intake Frequency: Holidays/Special Occasions Hx Substance Use: No Childhood Exposure to Second-Hand Smoke: Yes Dental Care, Regularly: Yes Physical Activity Frequency: Daily Seatbelt Use: always Sunscreen Use: Yes Review of Systems Review of Systems: All systems reviewed & are unremarkable except as noted in HPI & below Physical Exam Constitutional: WD/WN, vitals as above well developed and + obese Eyes: PERRL, conjunctivae normal, anicteric sclerae ENMT: Ears: + hearing impairment Neck: trachea midline, no thyromegaly Respiratory: normal respiratory effort, lungs clear to auscultation Cardiovascular: Heart Sounds: normal S1, normal S2 and + murmur Palpation: + palpable S3 Vessels: dorsalis pedis pulses present Gastrointestinal (Abdomen): normal bowel sounds, soft, nontender, no hepatosplenomegaly Musculoskeletal: no cyanosis or clubbing, extremities motor strength 5/5 Skin: no rashes, warm and dry Neurologic: patellar DTR's 2+ bilat, sensation intact Psychiatric: A+Ox3, euthymic affect Lymphatic: no cervical or axillary lymphadenopathy Results & Data Vital Signs (Past 12 Hours) Vital Signs Temp Pulse Pulse Resp BP BP Pulse Ox 04/24/19 16:05 74 20 151/78 H 98 04/24/19 14:56 75 18 136/90 95 04/24/19 12:51 53 L 16 154/74 H 95 04/24/19 11:12 71 71 22 134/74 95 04/24/19 10:05 36.9 C 90 16 129/72 97 Code Status & VTE Plan Code Status Full code VTE Prophylaxis Plan VTE Prophylaxis will be ordered: Yes PG Care Time/CCT Total # of Minutes Spent Total Time Spent with Patient: Total time spent is greater than 50% in coordination of care (as documented) at patient's floor/unit and/or counseling patient: Coding Level of Care Code 16134 Initial Inpt Care Lvl 3 Diagnoses Chest pain, precordial R07.2 Exertional dyspnea R06.09 Coronary artery disease I25.10 GERD (gastroesophageal reflux disease) K21.9 Hypertension I10 Paroxysmal atrial fibrillation I48.0 Obstructive sleep apnea G47.33 Parkinsons disease G20 COPD (chronic obstructive pulmonary disease) J44.9 Constipation, acute K59.00 Benign prostatic hyperplasia N40.0
[2019-04-24] MEDS ORDERED: ACETAMINOPHEN 325 MG TAB PO PRN (18:14)
[2019-04-24] MEDS ORDERED: bisacodyL 5 MG TABEC PO PRN (18:14)
[2019-04-24] MEDS ORDERED: ALUMINUM/MAGNESIUM SUSP 30 ML UDC PO PRN (18:14)
[2019-04-24] MEDS ORDERED: POLYETHYLENE (MIRALAX) 17 GM PACK PO PRN (18:14)
[2019-04-24] MEDS ORDERED: ONDANSETRON INJ 2 MG/ML 2 ML VIAL IV PRN (18:14)
[2019-04-24] MEDS ORDERED: MAGNESIUM HYDROXIDE SUSP 30 ML UDC PO PRN (18:14)
[2019-04-24] MEDS ORDERED: NITROGLYCERIN SL 0.4 MG/TAB TAB SL PRN (18:14)
[2019-04-24] MEDS ORDERED: MoRPHine SULFATE 2 MG/ML CARP IV PRN (18:14)
[2019-04-24 19:05] LABS: NT Pro B Type Natriuretic Pept 2385 pg/ml (0-1800); Troponin I < 0.015 ng/ml (0-0.045)
[2019-04-24] MEDS: NITROGLYCERIN 2% OINTMENT 30GM TUBE EXT SCH (19:31)
[2019-04-24] MEDS: TAMSULOSIN HCL 0.4 MG CAP PO SCH (19:33)
[2019-04-24] MEDS: RIVAROXABAN 15 MG TAB PO SCH (19:33)
[2019-04-24] MEDS: METOPROLOL TARTRATE 25 MG TAB PO SCH (19:34)
[2019-04-24] MEDS: RANOLAZINE 500 MG ER TAB PO SCH (19:35)
[2019-04-24] MEDS: CARBIDOPA/LEVODOPA 25/100MG TAB PO SCH (19:35)
[2019-04-24] MEDS: IPRATROPIUM BROMIDE NASAL SPRAY 0.06% 15ML NAE SCH (19:36)
[2019-04-24] MEDS ORDERED: PRAMIPEXOLE DIHYDROCHLO 0.25 MG TAB PO SCH (21:00)
[2019-04-25] MEDS: NITROGLYCERIN 2% OINTMENT 30GM TUBE EXT SCH ×3 (00:47→11:42)
[2019-04-25 06:54] LABS: Estimated Average Glucose 117 mg/dl; Hemoglobin A1C 5.7 % (4.5-5.6)
[2019-04-25 07:24] LABS: Basophils # (auto) 0.01 K/uL (0-0.2); Basophils % (auto) 0.1 %; Eosinophils # (auto) 0.03 K/uL (0-0.5); Eosinophils % (auto) 0.3 %; Hematocrit (blood only) 34.9 % (42-52); Hemoglobin 12.1 g/dL (14.0-18.0); Immature Granulocytes # (auto) 0.03 K/uL (0.00-0.02); Immature Granulocytes % (auto) 0.3 %; Lymphocytes # (auto) 2.14 K/uL (1.2-3.4); Lymphocytes % (auto) 24.6 %; Mean Corpuscular Hgb Conc 34.7 g/dL (32-36); Mean Corpuscular Volume 89.5 fL (80-100); Mean Platelet Volume 9.8 fL (7.4-10.4); Monocytes # (auto) 1.09 K/uL (0.11-0.59); Monocytes % (auto) 12.5 %; Neutrophils % (auto) 62.2 %; Platelet Count 177 K/uL (130-400); RDW Coefficient of Variation 15.6 % (11.5-14.5); RDW Standard Deviation 50.3 fL (36.4-46.3)
--- NOTE | 2019-04-25 07:52 | Electrocardiogram Report ---
Test Reason : Blood Pressure : / mmHG Vent. Rate : 089 BPM Atrial Rate : 089 BPM P-R Int : 240 ms QRS Dur : 086 ms QT Int : 384 ms P-R-T Axes : 053 037 048 degrees QTc Int : 467 ms Sinus rhythm with 1st degree A-V block with occasional Premature ventricular complexes Otherwise normal ECG When compared with ECG of 29-NOV-2018 07:34, Premature ventricular complexes are now Present Confirmed by Toñito Davila ([id number]) on 04/25/2019 7:52:25 AM Referred By: REFERRED SELF Confirmed By:Toñito Davila
[2019-04-25] MEDS: IPRATROPIUM BROMIDE NASAL SPRAY 0.06% 15ML NAE SCH (07:54)
[2019-04-25] MEDS: METOPROLOL TARTRATE 25 MG TAB PO SCH (07:56)
[2019-04-25] MEDS: TAMSULOSIN HCL 0.4 MG CAP PO SCH (07:56)
[2019-04-25] MEDS: CARBIDOPA/LEVODOPA 25/100MG TAB PO SCH (07:57)
[2019-04-25] MEDS: RANOLAZINE 500 MG ER TAB PO SCH (07:57)
[2019-04-25] MEDS: RIVAROXABAN 15 MG TAB PO SCH (07:59)
[2019-04-25 08:01] LABS: Albumin Globulin Ratio 1.2 (0.9-2); Albumin Level 3.2 gm/dl (3.4-5.0); BUN Creatinine Ratio 24.4 (10-20); Bilirubin,Total 0.6 mg/dl (0.2-1); Est GFR (Non-African American) 63.8; Globulin 2.7 gm/dl (2.5-4.0); Potassium 4.1 mmol/L (3.5-5.1); Total Protein 5.9 gm/dl (6.4-8.2)
[2019-04-25] MEDS ORDERED: CHOLECALCIFEROL 1,000 UNITS 25 MCG TAB PO SCH (09:00)
[2019-04-25] MEDS ORDERED: CALCIUM 600MG + VIT D 400 IU TAB PO SCH (09:00)
[2019-04-25] MEDS ORDERED: ASPIRIN 81 MG ECTAB PO SCH (09:00)
[2019-04-25] MEDS ORDERED: CYANOCOBALAMIN 500 MCG TABLET (VITAMIN B-12) PO SCH (09:00)
[2019-04-25] MEDS ORDERED: ATORVASTATIN 10 MG TAB PO SCH (09:00)
--- NOTE | 2019-04-25 09:50 | Cardiology Consultation ---
Date of Consultation April 25, 2019 History of Present Illness Attending Physician: Clemente Avina MD History of Present Illness The patient is a 88 yo male with a PMHX sig. for CAD , HTN, HP and aortic stenosis who present with a c/o CP. pt notes he has chronic angina and see Dr. Montero, his primary metal bonding crib attendant who has placed him on ranolazine and has been doing well until the day of admission. He noted he developed chest pain that lasted for several HR and presented to the ER where he was admitted to the hospitalist service an cardiology was consulted. Upon questioning the patient today, he notes he has had no further episodes of Cp or any other complaints. He notes he has been ambulating in the lemus and denied any CP, SOB or any other complaints. Allergies Allergy/AdvReac Type Severity Reaction Status Date / Time No Known Drug Allergies Allergy Verified 04/24/19 10:39 Home Medications Home Medications Medication Instructions Recorded Confirmed Type atorvastatin 10 mg tablet 10 mg PO DAILY 07/18/18 04/24/19 History carbidopa 25 mg-levodopa 100 mg 0.5 tab PO BID 07/18/18 04/24/19 History tablet pramipexole 0.25 mg tablet 0.25 mg PO HS 07/18/18 04/24/19 History metoprolol tartrate 50 mg tablet 25 mg PO BID #180 tab 09/09/18 04/24/19 Rx Caltrate 600 plus D 1 tab PO QAM 10/12/18 04/24/19 History cyanocobalamin (vitamin B-12) 1,000 mcg PO QAM 10/12/18 04/24/19 History cholecalciferol (vitamin D3) 50 2,000 units PO DAILY tab 10/14/18 04/24/19 History mcg (2,000 unit) tablet rivaroxaban 15 mg tablet 15 mg PO DAILY #90 tab 11/17/18 04/24/19 Rx tamsulosin 0.4 mg capsule 0.4 mg PO DAILY #90 cap 11/26/18 04/24/19 Rx ipratropium bromide 2 spray INTRANASAL BID 11/29/18 04/24/19 History bisacodyl 5 mg tablet,delayed 5 mg PO DAILY PRN 02/19/19 04/24/19 History release famotidine 20 mg tablet 20 mg PO DAILY 02/19/19 04/24/19 History ranolazine 500 mg tablet,extended 500 mg PO BID #60 tab 04/16/19 04/24/19 Rx release,12 hr furosemide [Lasix] 20 mg PO Q OTHER DAY #30 tab 04/25/19 Rx Patient History Medical History Chronic low back pain (Chronic) XR imaging demonstrating moderate multilevel degenerative changes. APAP PRN for pain Generalized osteoarthritis (Chronic) Primarily of knees and low back. Followed by ortho. Previous knee injections H/O prostate cancer (Resolved) History of pulmonary embolism Hx of PE, provoked after prolonged automobile trip (2013). AC with rivaroxaban SBO (small bowel obstruction) Schatzki's ring S/p dilation (2011) Surgical History H/O sinus surgery (Resolved) History of colonoscopy 06/11/2003 History of exploratory laparotomy lysis of adhesion band-06/15/16-Dr. [place] History of nasal surgery turbinate reduction S/P small bowel resection S/P TURP (Resolved) Family History Unknown Coronary heart disease Cancer Father Myocardial infarction Cardiac disorder Mother No problems noted. Other Bipolar disorder Denies family history of Ovarian cancer Prostate cancer Crohn's disease Breast cancer Lung cancer Colorectal cancer Social History Preferred Language: Latvian Communication Ability: Effective Communication Tools: Other Visual Impairment: Limited Hearing Ability: Normal Proctologist Required: No Beliefs That Will Affect Care: None marital status: Current Living Situation: Family Current Living Situation Comment: dtr current occupational status: retired Feels Safe at Home: Yes Smoking Status: Former smoker Age Started Using Tobacco: 13 ; Age Quit Using Tobacco: 23 ; Second Hand Exposure: No ; Hx Alcohol Use: Yes Alcohol type: beer Alcohol Intake Frequency: Holidays/Special Occasions Hx Substance Use: No Childhood Exposure to Second-Hand Smoke: Yes Dental Care, Regularly: Yes Physical Activity Frequency: Daily Seatbelt Use: always Sunscreen Use: Yes Review of Systems Review of Systems: All systems reviewed & are unremarkable except as noted in HPI & below Physical Exam Physical Exam: Gen : AAOx3 in NAD HEENT: NCAT Neck : Supple, no JVD or bruits CV : RRR 2/6 RYLEE crescendo-decrescendo pattern at RUSB. S1, +S2 Lungs: CTA b/l Abd: soft Non-tender, ND +BS Ext: No C/C/E Neuro : Grossly non-focal Results & Data ([facility]) Vital Signs (Past 12 Hours) Vital Signs Temp Pulse Pulse Pulse Resp BP BP 04/25/19 07:07 36.4 C L 76 20 150/81 H 04/25/19 04:27 36.5 C 69 18 148/83 H 04/25/19 00:43 36.6 C 61 18 129/66 04/24/19 23:08 57 L Pulse Ox 04/25/19 07:07 97 04/25/19 04:27 95 04/25/19 00:43 95 04/24/19 23:08 Impression : 1. Chest pain 2. H/O moderate aortic valve stenosis 3. PAF 4. HTN 5. CAD opting for conservative management Plan : 1. Chest pain can multifactorial. His enzymes are negative x3 sets.The patient does not want any testing therfore will coninue with GDMT titratin his antianginal therapy as neede being cognizant of his moderate Aortic stenosis. He has a follow-up appt with his primary metal bonding crib attendant Dr. Montero coming up. 2. Had echo in 09/26. repeat echo here showed no significant changes 3.Stable on current rate control strategy and OAC. 4. BP was elevated, may need titration of BP meds 5. In terms of his CAD as above, will continue with conservative therapy per patient wishes and he has a follow-up coming up on Saturday according to the patient, with Dr. Montero his primary metal bonding crib attendant. Please call with any questions.
[2019-04-25] MEDS ORDERED: FUROSEMIDE 20 MG in SYRINGE 0 ML IV SCH (10:15)
[2019-04-25] MEDS ORDERED: PERFLUTREN LIPID MICROSPHERE (DEFINITY) IV ONE (10:45)
--- NOTE | 2019-04-26 07:57 | Hospitalist Progress Note ---
Date of Service April 25, 2019 Assessment & Plan (1) Chest pain, precordial: Continue admit to PCU on telemetry for observation. Patient requested to be discharged home today, feels well Vital signs every 4 hours, Replenish electrolytes as needed, Troponin x3, TTE resulted and shows the left ventricle is grossly normal size. There is moderate concentric left ventricular hypertrophy. There is now moderate aortic stenosis. Ejection fraction 60 to 65%. Left ventricular systolic function is normal. No regional wall motion abnormalities noted. Moderate valvular aortic stenosis. No obvious dissection could be visualized. Appreciate cardiology recommendations. Follow-up with Dr. Montero on Saturday. Placed order for cardiac rehabilitation. DVT prophylaxis patient is on Xarelto for paroxysmal A. fib's Full code (2) Exertional dyspnea: Cardiac rehabilitation ordered. Patient was started on Lasix 20 mg p.o. which he should take as needed when he gains 3 to 5 pounds of weight. (3) Coronary artery disease: Fasting lipid panel pending, continue home medicine atorvastatin 10 mg p.o. daily, metoprolol tartrate 25 mg p.o. twice daily, ranolazine 500 mg p.o. twice daily. (4) GERD (gastroesophageal reflux disease): Stable, continue famotidine 20 mg p.o. daily. (5) Hypertension: As the above continue home medicine metoprolol 25 mg p.o. twice daily, ranolazine 500 mg p.o. twice daily. Aspirin 324 mg p.o. given in the ER. Continue aspirin 81 mg p.o. daily. (6) Paroxysmal atrial fibrillation: Stable, continue Xarelto (7) Obstructive sleep apnea: Patient states that for the past 4 years he does not use CPAP at home. Continue observing. (8) Parkinsons disease: Continue carbidopa/levodopa 25/100 mg half a tablet p.o. twice daily. (9) COPD (chronic obstructive pulmonary disease): Stable, continue ipratropium bromide 2 sprays intranasally twice daily (10) Constipation, acute: Continue bisacodyl 5 mg p.o. daily as needed as needed (11) Benign prostatic hyperplasia: Continue tamsulosin 0.4 mg p.o. daily Admission and Anticipated Discharge Date Admission Date: April 24, 2019 Patient is going to be discharged today on April 25, 2019. Subjective Patient seen and examined at the bedside. Patient is doing well and requested to be discharged home. No acute event overnight, afebrile ,troponin negative x3. Patient is able to ambulate on his own. Patient denies fever, chills, chest pain, shortness of breath, abdominal pain, frequency, urgency. Review of Systems Review of Systems: All systems reviewed & are unremarkable except as noted in HPI & below Physical Exam Constitutional: WD/WN, vitals as above well developed and + obese Eyes: PERRL, conjunctivae normal, anicteric sclerae ENMT: Ears: + hearing impairment Neck: trachea midline, no thyromegaly Respiratory: normal respiratory effort, lungs clear to auscultation Cardiovascular: Heart Sounds: normal S1, normal S2 and + murmur Palpation: + palpable S3 Vessels: dorsalis pedis pulses present Gastrointestinal (Abdomen): normal bowel sounds, soft, nontender, no hepatosplenomegaly Musculoskeletal: no cyanosis or clubbing, extremities motor strength 5/5 Skin: no rashes, warm and dry Neurologic: patellar DTR's 2+ bilat, sensation intact Psychiatric: A+Ox3, euthymic affect Lymphatic: no cervical or axillary lymphadenopathy PG Care Time/CCT Total # of Minutes Spent Total Time Spent with Patient: Total time spent is greater than 50% in coordination of care (as documented) at patient's floor/unit and/or counseling patient: Coding Level of Care Code 34862 Subseq Hosp Care Lvl 3 Diagnoses Chest pain, precordial R07.2 Exertional dyspnea R06.09 Coronary artery disease I25.10 GERD (gastroesophageal reflux disease) K21.9 Hypertension I10 Paroxysmal atrial fibrillation I48.0 Obstructive sleep apnea G47.33 Parkinsons disease G20 COPD (chronic obstructive pulmonary disease) J44.9 Constipation, acute K59.00 Benign prostatic hyperplasia N40.0
--- NOTE | 2019-04-26 08:06 | Discharge Summary ---
Date of Service April 25, 2019 Admission HPI Per Admitting Provider The patient is a 88 years old male with past medical history of coronary artery disease, restless leg syndrome, abdominal aortic aneurysm, Parkinson disease, GERD, hypertension, paroxysmal atrial fibrillation on Xarelto, aortic stenosis, obstructive sleep apnea who was brought by his daughter today complaining of substernal chest pain that occurred yesterday and lasted for couple of hours and again occurred today at 7:30 AM and lasted for 3 and half hours. 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 Patient states that in the past several weeks he has been significantly tired and had to sit down after walk for less than 1 block. He reports being unusually tired and that started toward him. Patient denies any sick contact. Patient denies fever, chills, chest pain, shortness of breath, abdominal pain, frequency, urgency. Labs are reviewed which shows: WBC is 12.35, hemoglobin 12.7, hematocrit 37.6, platelets 171, PT 13.2, INR 1.3, APTT 29.1, sodium 137, potassium 3.7, chloride 106, anion gap 9, BUN 28, creatinine 1.22, GFR 52.6, glucose 123, calcium 8.6, AST 12, ALT 19, alkaline phosphatase 60, troponin 0.015, total protein 6.9, albumin 3.7, globulin 3.2, lipase 38, procalcitonin pending. Chest x-ray is with mild bibasilar opacities which favor atelectasis. Mild infectious process could appear similar. Mild cardiomegaly without evidence for pulmonary edema. The decision was made to admit patient for chest pain and to rule out acute coronary syndrome to PCU on telemetry for observation. Principal Diagnosis none Discharge Exam Constitutional WD/WN, vitals as above well developed and + obese Eyes PERRL, conjunctivae normal, anicteric sclerae ENMT Ears: + hearing impairment Neck trachea midline, no thyromegaly Respiratory normal respiratory effort, lungs clear to auscultation Cardiovascular Heart Sounds: normal S1, normal S2 and + murmur Palpation: + palpable S3 Vessels: dorsalis pedis pulses present Gastrointestinal (Abdomen) normal bowel sounds, soft, nontender, no hepatosplenomegaly Musculoskeletal no cyanosis or clubbing, extremities motor strength 5/5 Skin no rashes, warm and dry Neurologic patellar DTR's 2+ bilat, sensation intact Psychiatric A+Ox3, euthymic affect Lymphatic no cervical or axillary lymphadenopathy Discharge Data Allergies Allergy/AdvReac Type Severity Reaction Status Date / Time No Known Drug Allergies Allergy Verified 04/24/19 10:39 Consultations 04/25/19 08:19 Consult Cardiology Routine Hospital Course (1) Chest pain, precordial: Continue admit to PCU on telemetry for observation. Patient requested to be discharged home today, feels well Vital signs every 4 hours, Replenish electrolytes as needed, Troponin x3, TTE resulted and shows the left ventricle is grossly normal size. There is moderate concentric left ventricular hypertrophy. There is now moderate aortic stenosis. Ejection fraction 60 to 65%. Left ventricular systolic function is n ormal. No regional wall motion abnormalities noted. Moderate valvular aortic stenosis. No obvious dissection could be visualized. Appreciate cardiology recommendations. Follow-up with Dr. Montero on Saturday. Placed order for cardiac rehabilitation. DVT prophylaxis patient is on Xarelto for paroxysmal A. fib's Full code (2) Exertional dyspnea: Cardiac rehabilitation ordered. Patient was started on Lasix 20 mg p.o. which he should take as needed when he gains 3 to 5 pounds of weight. (3) Coronary artery disease: Fasting lipid panel pending, continue home medicine atorvastatin 10 mg p.o. daily, metoprolol tartrate 25 mg p.o. twice daily, ranolazine 500 mg p.o. twice daily. (4) GERD (gastroesophageal reflux disease): Stable, continue famotidine 20 mg p.o. daily. (5) Hypertension: As the above continue home medicine metoprolol 25 mg p.o. twice daily, ranolazine 500 mg p.o. twice daily. Aspirin 324 mg p.o. given in the ER. Continue aspirin 81 mg p.o. daily. (6) Paroxysmal atrial fibrillation: Stable, continue Xarelto (7) Obstructive sleep apnea: Patient states that for the past 4 years he does not use CPAP at home. Continue observing. (8) Parkinsons disease: Continue carbidopa/levodopa 25/100 mg half a tablet p.o. twice daily. (9) COPD (chronic obstructive pulmonary disease): Stable, continue ipratropium bromide 2 sprays intranasally twice daily (10) Constipation, acute: Continue bisacodyl 5 mg p.o. daily as needed as needed (11) Benign prostatic hyperplasia: Continue tamsulosin 0.4 mg p.o. daily Total Time Total Time Spent Total Time Spent (In Minutes): >30 min Discharge Plan Discharge Items Patient Disposition: Home - Self-Care Reason For Visit: CHEST PAIN Discharge Diagnosis: Atypical chest pain Condition on Discharge: Good Goals: Cardiac rehab Activity: Resume your previous activity Lifting: Gradually increase as tolerated Non-emergency contact: Primary Care Provider and [employer] Call non-emergency contact if: you have any medication questions, your symptoms worsen, your pain is not controlled, your pain is worsening, your pain is conc erning for you, you have a fever and your temperature is above 101 Follow-up/Referrals: Skinny Adams, [Primary Care Provider] - Diet: Heart Healthy Addtl Attending Provider Instructions: Please follow-up with Dr. Montero on Saturday or in 2 days. When you feel that you gained weight of 3 to 5 pounds you can take Lasix 20 mg p.o. as needed. You do not need to take Lasix every day. Follow-up with cardiac rehab. Please have your phone available they will call you with the schedule. Follow-up with PCP in 7 days. Pending Studies at Discharge: No Stand-Alone Forms: [facility] [employer], Smoking Cessation Medications and DC Order Prescriptions: New furosemide [Lasix] 20 mg tablet 20 mg PO Q OTHER DAY Qty: 30 RF: 0 Continued atorvastatin [Lipitor] 10 mg tablet 10 mg PO DAILY RF: 0 carbidopa-levodopa [Sinemet] 25-100 mg tablet 0.5 tab PO BID RF: 0 pramipexole 0.25 mg tablet 0.25 mg PO HS RF: 0 metoprolol tartrate [Lopressor] 50 mg tablet 25 mg PO BID Qty: 180 RF: 3 Xarelto 15 mg tablet 15 mg PO DAILY Qty: 90 RF: 3 ranolazine [Ranexa] 500 mg tablet extended release 12 hr 500 mg PO BID Qty: 60 RF: 5 cholecalciferol (vitamin D3) 2,000 unit tablet 2,000 units PO DAILY RF: 0 tamsulosin 0.4 mg capsule 0.4 mg PO DAILY Qty: 90 RF: 3 famotidine 20 mg tablet 20 mg PO DAILY RF: 0 bisacodyl [Dulcolax (bisacodyl)] 5 mg tablet,delayed release (DR/EC) 5 mg PO DAILY PRN (Reason: constipation) RF: 0 cyanocobalamin (vitamin B-12) 1,000 mcg Tablet 1,000 mcg PO QAM RF: 0 Caltrate 600 plus D 600 mg (1,500 mg)-800 unit Tablet,Chewable 1 tab PO QAM RF: 0 ipratropium bromide 42 mcg (0.06 %) spray,non-aerosol 2 spray intranasal BID RF: 0 Discharge Orders: Discharge Order (Routine); Ordered 04/25/19 Ordered By: Clemente Avina Admission Data Admit Date/Time: 04/24/19 16:13 Attending Provider: Clemente Avina Admit Provider: Clemente Avina Primary Care Provider: Skinny Adams Other Providers: Al Freeman Other Interventions: Discharge Summary Assessment (RN) Last Done: 04/25/19 14:09 DC Date/Time DO NOT enter until pt leaves facility: 04/25/19 14:31 Coding Level of Care Code D/C Day Management >30 mins Diagnoses Chest pain, precordial R07.2 Exertional dyspnea R06.09 Coronary artery disease I25.10 GERD (gastroesophageal reflux disease) K21.9 Hypertension I10 Paroxysmal atrial fibrillation I48.0 Obstructive sleep apnea G47.33 Parkinsons disease G20 COPD (chronic obstructive pulmonary disease) J44.9 Constipation, acute K59.00 Benign prostatic hyperplasia N40.0
== END 2019-04-25 14:31 | disposition home or self-care (01) ==
LOC: 2S 10:01 → ED 10:01 → 2S 17:45